=== PATIENT | female | born 1945 | race Caucasian/White ===

== ENCOUNTER → 2020-04-27 14:56 | Outpatient (BNVA) | payer MEDICARE, SELFPAY | PROVIDERS: Family Provider Nurse Practitioner Family; PCP Nurse Practitioner Family; Visit Provider Nurse Practitioner Family | DX: Z11.59 Encounter for screening for other viral diseases (principal) | CPT/HCPCS: 87635 ==

== ENCOUNTER 2020-07-08 11:34 | Outpatient (CLI) | payer MEDICARE, SELFPAY ==
--- NOTE | 2020-07-08 11:44 | MM_ITS ---
WS: [id number] Bilateral screening digital mammogram, 07/08/2020 Clinical Data: SCREENING Comparison: 08/19/2018, 10/24/2018, 10/10/2018, 09/03/2017, 06/28/2016, 07/16/2015, 06/04/2014, 05/13/2013, 04/09/2012, 12/14/2010, 05/05/2009, 04/08/2008, 04/04/2007, 04/06/2006. Findings: The breast parenchymal pattern shows fibroglandular tissue No spiculated masses or clustered calcific ations are seen. There are no secondary signs of carcinoma. There are small benign calcifications in each breast. MM/[id number] Impression: 1. Negative bilateral mammogram unchanged. 2. Recommend annual screening mammograms. BIRADS: 1-Negative FOLLOW UP: 1 Year Follow-up The CAD film tests checker was used.
== END 2020-07-08 11:35 | disposition home or self-care (01) ==
LOC: RADSHAW 11:39
PROVIDERS: Family Provider Nurse Practitioner Family; PCP Nurse Practitioner Family; Visit Provider Nurse Practitioner Family
DX: Z12.31 Encounter for screening mammogram for malignant neoplasm of breast (principal)
CPT/HCPCS: 77067

== ENCOUNTER 2020-08-26 10:48 | Inpatient (IN) | payer MEDICARE, SELFPAY ==
[2020-08-26] VITALS (31 sets, daily range): BP systolic 82–199; BP diastolic 44–121; PULSE 41–105; RESP 12–25; TEMP 36.5; O2SAT 87–100; BMI 30.9
--- NOTE | 2020-08-26 11:12 | ECG_ITS ---
[facility] Test Date: 2020-08-26 Pat Name: Neisha Stratton Department: Room: 112 Gender: Female Heel Cover Softener: : 1945 Requested By: Toni De La Cruz I Order Number: [id number] Janie MD: Edson Carrillo M.D. Measurements Intervals [place] Rate: 41 P: UT: QRS: 38 QRSD: 106 T: 55 QT: 460 QTc: 384 Interpretive Statements ATRIAL FIBRILLATION WITH SLOW VENTRICULAR RESPONSE LOW QRS VOLTAGE IN PRECORDIAL LEADS [QRS DEFLECTION < 1.0 mV IN CHEST LEADS] ABNORMAL RHYTHM ECG No previous ECG available for comparison Electronically Signed On 08-26-2020 20:06:52 DIRECTOR ASSET by Edson Carrillo M.D. [id number] f
--- NOTE | 2020-08-26 11:12 | XR_ITS ---
WS: [id number] Exam: XR chest 1V portable [id number] Date/Time of Exam: 08/26/2020 11:12 AM Reason For Exam: syncope No priors. Findings: The lungs are clear and fully expanded. Costophrenic angles are sharp. No infiltrates. Bronchovascula r relief appears normal. Cardiac silhouette is unremarkable. Bony elements are intact. XR/XR chest 1V portable [id number] IMPRESSION: Unremarkable chest radiograph.
--- NOTE | 2020-08-26 11:33 | ED_ITS ---
HPI - Weakness General: Chief complaint: Weakness Stated complaint: SYNCOPE/ DIZZY/ WEAK Time Seen by Provider: 08/26/20 11:00 Source: patient Mode of arrival: EMS Limitations: no limitations History of Present Illness: HPI Narrative: The patient is a 75-year-old female with no prior cardiac history who presents to the emergency department with a presyncopal episode. She says her symptoms started yesterday with extreme dizziness and episodes of presyncope but it eventually settled down. She states that today symptoms recurred again and after taking a couple of steps she felt she was going to have a syncopal episode so she sat down and called for an ambulance. She denies any chest pain, shortness of breath. She only feels a little dizzy right now. Onset (ago): day(s) (1) Duration: intermittent and progressively worsening Associated symptoms: Denies chills, dysuria, fever(s), headache(s), nausea or vomiting Review of Systems General: Reports: 10 or more systems reviewed and unremarkable except in HPI and below Const: Denies: fever(s), chills or body aches Eyes: Denies: change in vision or blurry vision ENMT: Denies: throat pain, enlarged tonsils, odynophagia, hoarseness, mouth pain or swelling of lips/tongue Card: Denies: palpitations, irregular heart rhythm, edema or swelling of feet/ankles Resp: Denies: dyspnea, productive cough or non-productive cough GI: Denies: abdominal pain, nausea or vomiting : Denies: flank pain, difficulty voiding, dysuria, urinary frequency, urinary urgency or urinary hesitancy Musc: Denies: neck pain, back pain or extremity swelling Skin/Breast: Denies: rash, pruritus or erythema Neuro: Reports: dizziness; Denies: headache(s), numbness in extremities or weakness in extremities Endo: Denies: polyuria, polydipsia or tired all the time Physical Exam Const: COMMON NORMALS: no acute distress, average body habitus, patient oriented x3, no limitations, healthy appearing, alert and well nourished HENMT: COMMON NORMALS: normocephalic, atraumatic and moist oral mucous membranes HEAD & SCALP: normocephalic and atraumatic Neck/C-Spine: COMMON NORMALS: no meningeal signs and no JVD Chest: COMMONS NORMALS: normal inspection of the chest and normal palpation of entire chest wall Resp: COMMON NORMALS: normal respiratory effort, No retractions, No use of accessory muscles, clear to auscultation bilaterally and percussion normal AUSCULTATION: clear to auscultation bilaterally PERCUSSION: percussion normal Cardio: COMMON NORMALS: no JVD, S1 normal heart sound present, S2 normal heart sound present, No gallops present (Cardio), No clicks present (Cardio), No murmurs present (Cardio), No rub (Cardio) and Peripheral pulses 2+ throughout RATE: bradycardic RHYTHM: abnormal rhythm regularly irregular HEART SOUNDS: S1 normal heart sound present and S2 normal heart sound present PERIPHERAL PULSES: Peripheral pulses 2+ throughout GI: COMMON NORMALS: Normal to inspection, nondistended, normoactive bowel sounds present, Soft to palpation, non-tender, No hepatosplenomegaly present, no masses and no bruits PALPATION: Yes Soft to palpation and Yes No hepatosplenomegaly present Extremity: COMMON NORMALS: normal to inspection, full ROM, capillary refill normal, no calf tenderness and no pedal edema Neuro: COMMON NORMALS: patient oriented x3 SENSORIUM/ORIENTATION: Yes alert MENINGEAL SIGNS: Yes no meningeal signs Skin: COMMON NORMALS: no rashes or lesions noted, no wounds, turgor normal, no jaundice, no petechiae and no mottling GENERAL SKIN EXAM: no rashes or lesions noted and turgor normal Course Reevaluation(s): Reevaluation #1: Discussed her EKG findings, her auditor internal findings, and my conversation with the nut tapper. Explained that she will need a pacemaker because her heart rate is very low. This is likely responsible for her presyncopal episodes. She voiced understanding and is in agreement with the plan. Time: 11:35 Consultations: Consultation #1: Discussed the patient with Dr. Mcdaniel, nut tapper and he will take her to the [employer] [facility] [employer] [facility] for a temporary pacemaker. Time: 11:30 Vital Signs: Vital signs: Vital Signs Temperature 97.7 F 08/26/20 11:06 Pulse Rate 80 08/26/20 17:24 Respiratory Rate 16 08/26/20 13:45 Blood Pressure 95/57 08/26/20 13:45 Pulse Oximetry 94 08/26/20 17:24 MDM - Weakness MDM Narrative: Medical decision making narrative: 75-year-old female patient who presented to the emergency department with a presyncopal episode. Evaluation in the emergency department shows she is in heart block and requires a pacemaker. She was taken emergently to the [facility] for a temporary pacemaker placement. Medical Records: Attestation: I reviewed the patient's medical records. Lab Data: Attestation: I reviewed the patient's lab results. Labs: Lab Results 08/26/20 08/26/20 08/26/20 Range/Units 11:40 11:40 11:40 WBC 8.6 (4.0-10.0) 10^3/ uL RBC 3.77 L (4.1-5.3) 10^6/u L Hgb 11.7 (11.5-15.3) g/dL Hct 37.0 (37.0-47.0) % MCV 98.1 (81-99) fL MCH 31.0 (28.0-34.0) pg MCHC 31.6 (30.0-36.0) g/dL RDW 13.0 (12.1-15.1) % Plt Count 194 (130-400) 10^3/c mm MPV 11.5 H (7.4-10.4) fL Neut % (Auto) 81.0 % Lymph % (Auto) 14.3 % [place] % (Auto) 3.8 % Eos % (Auto) 0.2 % Baso % (Auto) 0.2 % Neut # (Auto) 6.98 (1.8-7.7) 10^3/u L Lymph # (Auto) 1.2 (0.8-4.8) 10^3/u L [place] # (Auto) 0.3 (0.2-0.9) 10^3/u L Eos # (Auto) 0.0 (0.0-0.8) 10^3/u L Baso # (Auto) 0.0 (0.0-0.1) 10^3/u L Nucleated RBC % (a uto) 0 % Nucleated RBCs # 0.0 /100WBC PT 14.40 (12.1-14.9) SECO NDS INR 1.08 (0.8-1.2) Sodium 126 L (136-145) mmol/L Potassium 7.4 H* (3.5-5.1) mmol/L Chloride 96 L (98-107) mmol/L Carbon Dioxide 20 L (22-29) mmol/L Anion Gap 17.4 (5-19) BUN 46 H (8-23) mg/dL Creatinine 2.6 H (0.5-0.9) mg/dL GFR Calculation Not Reportable Glucose 312 H (65-115) mg/dL Calculated Osmolal ity 286 (285-295) mOsm/k g Calcium 8.5 (8.5-10.5) mg/dL Total Bilirubin 0.3 (0.15-1.2) mg/dL AST 14 (0-32) U/L ALT 13 (0-33) U/L Alkaline Phosphata se 35 (35-105) IU/L Troponin T Baselin e (0-10) ng/L NT-Pro-B Natriuret Pep 3054 H (0-450) pg/mL Total Protein 6.4 L (6.6-8.7) g/dL Albumin 4.2 (3.5-5.2) g/dL Globulin 2.2 (1.3-4.6) g/dL TSH 2.21 (0.27-4.20) uIU/ mL 08/26/20 Range/Units 11:40 WBC (4.0-10.0) 10^3/ uL RBC (4.1-5.3) 10^6/u L Hgb (11.5-15.3) g/dL Hct (37.0-47.0) % MCV (81-99) fL MCH (28.0-34.0) pg MCHC (30.0-36.0) g/dL RDW (12.1-15.1) % Plt Count (130-400) 10^3/c mm MPV (7.4-10.4) fL Neut % (Auto) % Lymph % (Auto) % [place] % (Auto) % Eos % (Auto) % Baso % (Auto) % Neut # (Auto) (1.8-7.7) 10^3/u L Lymph # (Auto) (0.8-4.8) 10^3/u L [place] # (Auto) (0.2-0.9) 10^3/u L Eos # (Auto) (0.0-0.8) 10^3/u L Baso # (Auto) (0.0-0.1) 10^3/u L Nucleated RBC % (a uto) % Nucleated RBCs # /100WBC PT (12.1-14.9) SECO NDS INR (0.8-1.2) Sodium (136-145) mmol/L Potassium (3.5-5.1) mmol/L Chloride (98-107) mmol/L Carbon Dioxide (22-29) mmol/L Anion Gap (5-19) BUN (8-23) mg/dL Creatinine (0.5-0.9) mg/dL GFR Calculation Glucose (65-115) mg/dL Calculated Osmolal ity (285-295) mOsm/k g Calcium (8.5-10.5) mg/dL Total Bilirubin (0.15-1.2) mg/dL AST (0-32) U/L ALT (0-33) U/L Alkaline Phosphata se (35-105) IU/L Troponin T Baselin e 23 H (0-10) ng/L NT-Pro-B Natriuret Pep (0-450) pg/mL Total Protein (6.6-8.7) g/dL Albumin (3.5-5.2) g/dL Globulin (1.3-4.6) g/dL TSH (0.27-4.20) uIU/ mL Imaging Data^: CXR: Attestation: I personally reviewed and interpreted this imaging study as follows: Radiologist's impression: [address] [address] XRay Report Signed Patient: Neisha Stratton #: [id number] : 5Acct#:[id number] Age/Sex: 75 / FADM Date: 08/26/20 Loc: CCLRoom/Bed: Attending Dr: Viraj Mcdaniel MD Ordering Provider/Ordering MD: Toni De La Cruz [place], [facility] [place] of Service: 08/26/20 Procedure(s): XR chest 1V portable [id number] Accession Number(s): [id number] Report Number: [id number] WS: [id number] Exam: XR chest 1V portable [id number] Date/Time of Exam: 08/26/2020 11:12 AM Reason For Exam: syncope No priors. Findings: The lungs are clear and fully expanded. Costophrenic angles are sharp. No infiltrates. Bronchovascular relief appears normal. Cardiac silhouette is unremarkable. Bony elements are intact. XR/XR chest 1V portable [id number] IMPRESSION: Unremarkable chest radiograph. Dictated By:Gerardo Ackerman DO Signed By:Lorenzo Yun Date/Time:08/26/20 1145 DD/ 1144 EKG Data^: EKG 1: Attestation: I personally reviewed and interpreted this EKG as follows: EKG interpretation date: 08/26/20 EKG interpretation time: 10:56 Prior EKG tracings: not available for review Interpretation: Atrial fibrillation with slow ventricular response. Heart rate 40 bpm. Complete heart block Discharge Plan Discharge Patient Disposition: Admitted As Inpatient Admit Provider: Viraj Mcdaniel Clinical Impression: Heart block AV complete Condition: Stable Coding Level of Care Code ED Senior Housekeeper for Chg Fwd Exam Comprehensive
--- NOTE | 2020-08-26 11:44 | PM.HP ---
Providers/Chief Complaint Primary Care Provider: Mary Lou Hayes APN Chief Complaint: SYNCOPE/ DIZZY/ WEAK History of Present Illness Neisha Stratton is a 75 year old female brought in ER after having syncope. Patient is not a good historian but according to her she has history of hypertension hyperlipidemia has never had any heart problem nor she is aware of diagnosis of atrial fibrillation. According to her for the last few days she has been progressively getting weak short of breath and dizzy. In the last 2 days she has past couple of time today when she had syncope 911 was called. She was noted to have slow heart rate into 30s EKG strips were consistent with slow ventricular response and atrial fibrillation as underlying rhythm. Most likely she has complete heart block. Currently she is hypotensive and bradycardic. ER called me I examined the patient and ordered IV fluid with dopamine drip. I will take her immediately for temporary pacemaker. We will observe her next 24 hours will rule out reversible causes for heart block, patient denies being on blood thinner, she does not know her medicines. She has been explained all risk benefit and alternative for the procedure. She would like to proceed with temporary and permanent pacemaker. Review of Systems General: Reports: 10 or more systems reviewed and unremarkable except in HPI and below and ROS unobtainable due to medical condition Const: Denies: fever(s), chills or body aches Eyes: Denies: change in vision or blurry vision ENMT: Denies: throat pain, enlarged tonsils, odynophagia, hoarseness, mouth pain or swelling of lips/tongue Card: Denies: palpitations, irregular heart rhythm, edema or swelling of feet/ankles Resp: Denies: dyspnea, productive cough or non-productive cough GI: Denies: abdominal pain, nausea or vomiting : Denies: flank pain, difficulty voiding, dysuria, urinary frequency, urinary urgency or urinary hesitancy Musc: Denies: neck pain, back pain or extremity swelling Skin/Breast: Denies: rash, pruritus or erythema Neuro: Reports: dizziness; Denies: headache(s), numbness in extremities or weakness in extremities Endo: Denies: polyuria, polydipsia or tired all the time Medications/Allergies Allergies Allergy/AdvReac Type Severity Reaction Status Date / Time naproxen [From Aleve] Allergy Unknown Verified 08/26/20 11:15 Vitals/I&O/Wt Last Vital Signs Temp 97.7 F 08/26/20 11:06 Pulse 41 L 08/26/20 11:06 Resp 22 H 08/26/20 11:06 BP 84/45 08/26/20 11:06 Pulse Ox 100 08/26/20 11:06 Weight last 48 hrs Weight 180 lb Physical Exam Narrative: EXAM NARRATIVE: GENERAL: Patient is alert, awake and oriented x3. Appears to be lethargic NECK: No jugular vein distension. HEENT: No cyanosis. No icterus. No pallor. HEART: Irregularly irregular slow rhythm S1 and S2. No murmur, rub or gallop. LUNGS: Clear to auscultate bilaterally. ABDOMEN: Soft, nontender and nondistended. Positive bowel sounds. No guarding, rebound or tenderness. CENTRAL NERVOUS SYSTEM: Grossly nonfocal. EXTREMITIES: Lower extremities without edema bilaterally. Data : 08/26/20 11:40 08/26/20 16:12 A&P Assessment and plan (1) Heart block AV complete: Patient appeared to be in complete heart block with hypotension. We will start her on IV fluid and dopamine drip, we will proceed with temporary pacemaker and later permanent, will rule her out with reversible causes such as electrolyte imbalance medicine overdose and ischemia. Status: Acute (2) Shock: Most likely due to severe bradycardia complete heart block, IV fluid with dopamine advised. Proceed with temporary pacemaker. For the plan will be advised as per progress of the patient Status: Acute (3) Atrial fibrillation: Underlying rhythm is atrial fibrillation we will further check her previous record as it is not available to me at this point. She may will be needing anticoagulation later. Status: Acute Qualifiers: Atrial fibrillation type: persistent (not longstanding) Qualified Code(s): I48.19 - Other persistent atrial fibrillation (4) Hyperlipidemia LDL goal <100: Continue current regimen. Status: Acute Attestations Medical Necessity Statement*: I am expecting her stay to cross more than 2 midnights Coding Level of Care Code New Pt Acute [employer] Industrial [employer] Consultant for Chg Fwd Patient Type New Medical Decision Making Moderate Complexity Diagnoses Heart block AV complete I44.2 Shock R57.9 Atrial fibrillation I48.19 Atrial fibrillation type: persistent (not longstanding) Hyperlipidemia LDL goal <100 E78.5
[2020-08-26] MEDS: sodium chloride 0.9% 1,000 ML 999 ML IV (11:46)
--- NOTE | 2020-08-26 11:46 | XACV_ITS ---
Ht: 163 cm Wt: 91 kg BSA: 2.06 m2 Gender: Female : 1945 Any Known Allergies: Other Exam Priority: Routine Procedure(s): Procedure Description: Diagnostic procedure Procedure Description: Miscellaneous Procedure Description: Temporary Pacemaker Insertion Diagnostic Cath Status: Elective PCI Status: Elective Conclusions 1. Indication for temporary pacemaker: Third-degree heart block with symptomatic bradycardia 2. . 3. After carefully explaining risk benefit and alternative for the procedure informed consent was obtained from the patient by myself. Patient was taken to the Machine Tack Puller right groin was prepped through right common femoral approach temporary pacemaker was placed in the right ventricle. Excellent capture was observed and noted. Patient was later transferred to ICU in a stable condition. 4. . Recommendations * Usual post-cath care, usual post pacemaker placement care. Pressures Phase:Rest AO : / ( ) @ 6:03:00 AM / ( ) @ 6:13:00 AM Clinical Evaluation EBL: 5mL-10mL Procedural Details Procedure Consent Obtained. Pre-Procedure Time Out. Identified patient by full name and date of as verbalized by the patient/guarantor. Does the consent match the physician's order: Yes. Accurate & Complete Informed Consent: Yes. Inpatient/Outpatient History & Physical on Chart: Yes. If H&P is completed, is and addenduem needed: No; If yes, is the addendum complete: N/A. Visualize and Verify Site with Patient/Guarantor: N/A. Relevant Radiology Images available: Yes. Pre-op teaching completed and patient verbalized understanding. The risks, benefits, and alternatives of sedation and/or procedure were discussed by physician. The patient agrees to continue. Procedure started. Correct patient, site and procedure confirmed by cath team. Current diagnosis: Complete heart block. PERRLA. Strong, equal hand general manager food bilaterally. Lungs clear x 5 lobes. IV Site on Arrival: 22 gauge in the left wrist. IV Site on Arrival: 20 gauge in the right anticubital. IV Fluids: 0.9% NaCl at KVO. 0 mL infused prior to labor mediator. Pre Procedural Pulses: bilateral dorsalis pedis was 3+. Pre Procedural Pulses: bilateral posterior tibial was 3+. Pre Procedural Pulses: right radial was 3+. Oxygen started at 2liters/min via nasal canula. Physician notified. Physician arrived. Equipment: 5F - Femoral. Baseline sample Acquired. HR: 36 BPM. Cardiac Cath Pack. Kit, Micropuncture. ACIST Manifold Kit Model BT 2000. Physician scrubbed in. Immediate Pre-Procedure Time Out. Correct Patient: Yes; Correct Procedure: Yes; Correct Site: Yes; Correct Patient Position: Yes; Correct Supplies: Yes; Dried Flammable Prep: Yes; Blood Products Available: No;. Lidocaine 1% infiltrated to the right groin. Venous access obtained with a micropuncture set. 6FR arrow sheath inserted. Temporary pacemaker inserted. Rate 80, output of 5, asynchronous. Vital chart was stopped. Sheath(s) sutured into position with 2-0 silk and sterile 4x4's and Op-site applied over the site. No oozing or signs and symptoms of hematoma noted. Post Procedure: Pulses reassessed and unchanged. PERRLA. Strong, equal hand general manager food bilaterally. No VTE prophylaxis required. Post-op diagnosis: Temporary pacemaker insertion. Complications: None. Estimated blood loss: 5mL-10mL. Procedure completed. Patient transferred by bed to CPRU. Procedure Medications Start: 12:06 PM Stop: 12:06 PM Medication: Versed Amount: 1 mg Route: I.V. Start: 12:06 PM Stop: 12:06 PM Medication: Fentanyl Amount: 25 mcg Route: I.V. I, the attending physician, have reviewed and verified all procedure medications. Yes, all medications given per verbal order History/Risk Factors Hypertension: No Dyslipidemia: Yes Peripheral Arterial Disease (PAD): No Myocardial Infarction (CO): No Obesity: Yes Renal Disease: No Prior Interventions PCI: No CABG: No Valve Surgery: No Report Signatures Finalized by Viraj Mcdaniel MD on 09/30/2020 09:56 PM
--- NOTE | 2020-08-26 11:52 | PC.NURSE ---
Pt taken to cath lab radiology technician by Chani Huang for temporary pacemaker. Pt may need to return to ED to recover until bed available.
[2020-08-26 11:55] LABS: Basophils % 0.2 %; Eosinophils % 0.2 %; Hemoglobin 11.7 g/dL (11.5-15.3); INR 1.08 (0.8-1.2); Lymphocytes # 1.2 10^3/uL (0.8-4.8); Lymphocytes % 14.3 %; Mean Corpuscular HGB Conc 31.6 g/dL (30.0-36.0); Mean Corpuscular Volume 98.1 fL (81-99); Mean Platelet Volume 11.5 fL (7.4-10.4); Monocytes # 0.3 10^3/uL (0.2-0.9); Monocytes % 3.8 %; Neutrophils # 6.98 10^3/uL (1.8-7.7); Nucleated Red Blood Cells % 0 %; Platelet Count 194 10^3/cmm (130-400); Red Blood Count 3.77 10^6/uL (4.1-5.3); White Blood Count 8.6 10^3/uL (4.0-10.0)
[2020-08-26 12:08] LABS: Troponin(5th) Baseline 23 ng/L (0-10)
[2020-08-26 12:18] LABS: Alanine Aminotransferase 13 U/L (0-33); Albumin Level 4.2 g/dL (3.5-5.2); Alkaline Phosphatase 35 IU/L (35-105); Aspartate Amino Transferase 14 U/L (0-32); Blood Urea Nitrogen 46 mg/dL (8-23); Calcium 8.5 mg/dL (8.5-10.5); Carbon Dioxide 20 mmol/L (22-29); Chloride 96 mmol/L (98-107); Globulin 2.2 g/dL (1.3-4.6); Glucose 312 mg/dL (65-115); NT Pro B Type Natriuretic Pept 3054 pg/mL (0-450); Osmolality Calculated 286 mOsm/kg (285-295); Sodium 126 mmol/L (136-145); Thyroid Stimulating Hormone 2.21 uIU/mL (0.27-4.20); Total Bilirubin 0.3 mg/dL (0.15-1.2); Total Protein 6.4 g/dL (6.6-8.7)
[2020-08-26 12:22] LABS: Anion Gap 17.4 (5-19); Potassium 7.4 mmol/L (3.5-5.1)
[2020-08-26] MEDS: insulin regular-human 10 UNIT in SYRINGE 1 EACH IVP ×2 (13:40→17:47)
--- NOTE | 2020-08-26 14:01 | PC.NURSE ---
received pt from worm farm laborer post temporary pacemaker placed via right groin. pt placed on vials monitor and will be monitored. asynchronous, 4 miliamps and 80 paced hr settings.
--- NOTE | 2020-08-26 15:05 | PC.NURSE ---
Patient received from quality assurance/r&d lab technician via stretcher accompanied by Johnnie RN. Patient AAOx4, right groin c/d/i, pacer wires intact, capture on monitor, VSS.
[2020-08-26 16:38] LABS: Troponin 5 2HR 18.81 ng/L (0-10)
[2020-08-26 16:41] LABS: Troponin 5 2HR Delta -4.19 ABS# (0-10)
[2020-08-26 16:57] LABS: Blood Urea Nitrogen 45 mg/dL (8-23); Calcium 8.9 mg/dL (8.5-10.5); Carbon Dioxide 15 mmol/L (22-29); Chloride 100 mmol/L (98-107); Glucose 197 mg/dL (65-115); Osmolality Calculated 281 mOsm/kg (285-295); Sodium 127 mmol/L (136-145)
[2020-08-26 17:09] LABS: Anion Gap 19.5 (5-19); Potassium 7.5 mmol/L (3.5-5.1)
--- NOTE | 2020-08-26 17:22 | XR_ITS ---
WS: [id number] Exam: XR chest 1V portable [id number] Date/Time of Exam: 08/26/2020 5:22 PM Reason For Exam: flash pulmonary edema Comparison 08/26/2020 at 1119 hours. The lungs are clear and fully expanded. Mild chronic interstitial changes. Normal cardiomediastinal s tructures and bony elements. No pleural effusions. Monitoring leads superimpose the chest. XR/XR chest 1V portable [id number] IMPRESSION: 1. No acute cardiopulmonary finding. No change.
[2020-08-26 17:32] LABS: Glucose Point of Care 235 mg/dL (70-110)
[2020-08-26] MEDS: FUROsemide 10 mg/mL SDV 4mL 40 MG IVP ×2 (17:36→17:44)
--- NOTE | 2020-08-26 18:07 | P.CONIM_ITS ---
Providers/Reason For Consult Consulting Physican/Specialty*: Internal Medicine Reason for Consult*: Medical management Attending Physician: Viraj Mcdaniel MD Primary Care Provider: Mary Lou Hayes APN History of Present Illness History of Present Illness Neisha Stratton is a 75 year old female with extreme dizziness and episodes of presyncope. I am unable to take history at this time because she has been placed on BiPAP urgently. History is taken from chart. Review of Systems General: Reports: ROS unobtainable due to medical condition Meds/Allergies Home Medications and Allergies Allergies Allergy/AdvReac Type Severity Reaction Status Date / Time naproxen [From Aleve] Allergy Unknown Verified 08/26/20 11:15 Current Medications Current Medications Generic Name Dose Route Start Last Admin Trade Name Freq PRN Reason Stop Dose Admin Albuterol Sulfate 2.5 mg 08/26/20 17:51 08/26/20 17:54 Albuterol 2.5 Mg/0.5 Ml Neb INHALATION 2.5 mg Q4H.RESPIRATORY SRAVANTHI Administration Dopamine HCl/Dextrose 400 mg in 250 mls @ 15.309 mls/hr 08/26/20 11:45 08/26/20 17:46 Intropin Drip IV Not Given CONT SRAVANTHI Protocol 5 MCG/KG/MIN Insulin Human Regular 10 unit/ 250.1 mls @ 500.2 mls/hr 08/26/20 17:30 08/26/20 17:49 Dextrose IV 08/27/20 17:59 500.2 mls/hr Q30MIN SRAVANTHI Administration Sodium Chloride 1,000 mls @ 100 mls/hr 08/26/20 12:30 08/26/20 15:31 Sodium Chloride 0.9% IV Not Given .Q10H SRAVANTHI PFSH Acute Female Reproductive History: Date of last menstrual period: 08/02/95 Vitals/I&O/Wt Last Vital Signs Temp 97.7 F 08/26/20 11:06 Pulse 84 08/26/20 18:05 Resp 18 08/26/20 17:58 BP 95/57 08/26/20 13:45 Pulse Ox 94 08/26/20 17:58 08/26/20 08/26/20 08/26/20 06:59 14:59 22:59 Intake Total 120 / 120 Output Total 1000 / 1000 Balance -880 / -880 Weight last 48 hrs Weight 81.647 kg Physical Exam Narrative: EXAM NARRATIVE: Patient is seen now in the ICU. She has been placed on BiPAP. She is lethargic difficult to arouse. She is unable to speak with me. Head:normocephalic atraumatic Eyes: Pupils equal round and reactive to light and accommodation extraocular muscles appear intact ENT BiPAP in place chest is symmetric respirations Lungs : Inspiratory rhonchi and expiratory wheezes with increased respiratory rate Heart: Regular rate and rhythm. Telemetry strip shows paced rhythm at 80. No murmur auscultated GI: Central obesity using accessory muscles to breathe including abdominal muscles. Soft nontender nondistended normal active bowel sounds external exam is normal. Christy catheter in place draining 1 L of pale yellow urine upon placement. Extremities: No clubbing cyanosis or edema good peripheral pulses. Neuro: Lethargic due to acute respiratory failure. She started to open eyes and of exam. 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 scheduled for kayexalate when can take po. May need pr Status: Acute (3) Acute respiratory failure with hypoxemia: placed emergently on BIPAP 18/10. Given lasix per cardiology times one dose. Status: Acute (4) Atrial fibrillation: per cardiology Status: Acute Qualifiers: Atrial fibrillation type: persistent (not longstanding) Qualified Code(s): I48.19 - Other persistent atrial fibrillation (5) Hyponatremia: likely related to medications Status: Acute Consult Attestations Medical Necessity Statement: Pt with life threatening complete heart block followed by acute respiratory failure on BIPAP and with temporary pacemaker. Coding Level of Care Code Acute Community Relations Advisor for [facility] Diagnoses Heart block AV complete I44.2 Hyperkalemia E87.5 Acute respiratory failure with hypoxemia J96.01 Atrial fibrillation I48.19 Atrial fibrillation type: persistent (not longstanding) Hyponatremia E87.1
[2020-08-26 18:33] LABS: Glucose Point of Care 249 mg/dL (70-110)
[2020-08-26] MEDS: heparin 5,000 unit/mL INJ 1 mL 5000 UNIT SUBCUT (19:02)
[2020-08-26] MEDS: sodium bicarbonate 8.4% 1 mEq/mL 50mL Syr 50 MEQ IVP (19:02)
--- NOTE | 2020-08-26 19:48 | PC.NURSE ---
AO x4, denies SOB and pain, lungs clear, regular unlabored RR, tolerating Bipap, supine 30 degrees, call light within reach
[2020-08-26 20:11] LABS: Blood Urea Nitrogen 44 mg/dL (8-23); Calcium 8.6 mg/dL (8.5-10.5); Carbon Dioxide 24 mmol/L (22-29); Chloride 96 mmol/L (98-107); Glucose 208 mg/dL (65-115); Osmolality Calculated 285 mOsm/kg (285-295); Sodium 129 mmol/L (136-145)
[2020-08-26 20:13] LABS: Troponin 5 6HR 31.44 ng/L (0-10)
[2020-08-26 20:15] LABS: Anion Gap 15.8 (5-19)
[2020-08-26 20:17] LABS: Potassium 6.8 mmol/L (3.5-5.1)
[2020-08-26] MEDS: sodium polystyrene sulfonate 15 gm/60 mL Btl 30 GM PR (20:41)
[2020-08-27] VITALS (33 sets, daily range): BP systolic 87–167; BP diastolic 47–85; PULSE 60–98; RESP 12–24; TEMP 36.6; O2SAT 90–100
[2020-08-27 00:58] LABS: Anion Gap 15.9 (5-19); Blood Urea Nitrogen 44 mg/dL (8-23); Carbon Dioxide 25 mmol/L (22-29); Chloride 99 mmol/L (98-107); Glucose 154 mg/dL (65-115); Osmolality Calculated 294 mOsm/kg (285-295); Potassium 4.9 mmol/L (3.5-5.1); Sodium 135 mmol/L (136-145)
--- NOTE | 2020-08-27 01:39 | PC.NURSE ---
Dr. Batista contacted regarding NS 100 ml/hr fluid oder on aug after patient went into pulmonary edema on previous shift, T.O. given to hold fluid order
[2020-08-27] MEDS: heparin 5,000 unit/mL INJ 1 mL 5000 UNIT SUBCUT ×3 (03:24→19:33)
[2020-08-27 04:39] LABS: Hematocrit 36.4 % (37.0-47.0); Mean Corpuscular Hemoglobin 30.3 pg (28.0-34.0); Mean Corpuscular Volume 91.9 fL (81-99); Nucleated Red Blood Cells % 0 %; Red Blood Count 3.96 10^6/uL (4.1-5.3); Red Cell Distribution Width 12.7 % (12.1-15.1)
[2020-08-27 05:02] LABS: Anion Gap 17.4 (5-19); Blood Urea Nitrogen 45 mg/dL (8-23); Calcium 8.9 mg/dL (8.5-10.5); Carbon Dioxide 25 mmol/L (22-29); Chloride 100 mmol/L (98-107); Glucose 107 mg/dL (65-115); Osmolality Calculated 298 mOsm/kg (285-295); Potassium 4.4 mmol/L (3.5-5.1); Sodium 138 mmol/L (136-145)
[2020-08-27 05:08] LABS: Eosinophils # 0.1 10^3/uL (0.0-0.8); Eosinophils % 0.9 %; Lymphocytes # 1.7 10^3/uL (0.8-4.8); Lymphocytes % 29.6 %; Mean Platelet Volume 11.6 fL (7.4-10.4); Monocytes # 0.4 10^3/uL (0.2-0.9); Monocytes % 6.8 %; Neutrophils # 3.66 10^3/uL (1.8-7.7); Neutrophils % 62.4 %; Platelet Count 190 10^3/cmm (130-400); White Blood Count 5.9 10^3/uL (4.0-10.0)
--- NOTE | 2020-08-27 05:58 | PC.NURSE ---
uneventful night, continues to tolerate Bipap, Pace maker capturing, site clean dry and intact
--- NOTE | 2020-08-27 07:00 | USCV_ITS ---
Neisha Stratton Age: 75 Gender: F : 1945 Exam Date: 08/27/2020 07:36 Ordering Phys: Viraj Mcdaniel MD ([email or web address]) Technologist: Augustina Mae Exam Location: [facility] [place] Indication: NSTEMI BP: 113 / 54 HR: 92 Rhythm: Sinus Technical Quality: Adequate MEASUREMENTS (Male / Female) Normal Values 2D ECHO LV Diastolic Diameter PLAX 3.1 cm 4.2 - 5.9 / 3.9 - 5.3 cm LV Systolic Diameter PLAX 1.8 cm LV Chamber Size 2.4 cm IVS Diastolic Thickness 1.5 cm 0.6 - 1.0 / 0.6 - 0.9 cm IVS Systolic Thickness 1.6 cm LVPW Diastolic Thickness 1.8 cm 0.6 - 1.0 / 0.6 - 0.9 cm LVPW Systolic Thickness 2.1 cm RV Chamber Size 2.8 cm LVOT Diameter 2.0 cm LV Ejection Fraction 2D Teich 73.8 % LV Ejection Fraction MOD 2C 73.6 % LV Ejection Fraction 2C AL 76.7 % LA Diameter 2.8 cm LA Width 2.4 cm LA Height 3.9 cm RA Width 2.1 cm RA Height 2.8 cm M-MODE LV Diastolic Diameter MM 4.1 cm 4.2 - 5.9 / 3.9 - 5.3 cm LV Systolic Diameter MM 2.9 cm LV Ejection Fraction MM Teich 58.1 % IVS Diastolic Thickness MM 1.3 cm 0.6 - 1.0 / 0.6 - 0.9 cm IVS Systolic Thickness MM 1.7 cm LVPW Diastolic Thickness MM 1.0 cm 0.6 - 1.0 / 0.6 - 0.9 cm LVPW Systolic Thickness MM 1.3 cm Aortic Annulus Diameter 2.3 cm LA Ao Ratio MM 1.3 MV E Point Septal Separation 0.4 cm DOPPLER AV Peak Velocity 151.0 cm/s LVOT Peak Velocity 102.0 cm/s AV Area Cont Eq vti 2.0 cm squared AV Area Cont Eq pk 2.1 cm squared MV Area PHT 3.4 cm squared Mitral E to A Ratio 2.7 MV E' Velocity 49.5 cm/s Mitral E to MV E' Ratio 7.2 Mitral E to LV E' Lateral Ratio 5.7 Mitral E to LV E' Septal Ratio 10.0 TR Peak Velocity 186.8 cm/s TR Peak Gradient 14.0 mmHg TV Peak E Velocity 53.0 cm/s Right Atrial Pressure 3.0 mmHg Pulmonary Artery Systolic Pressu 17.0 mmHg PV Peak Velocity 98.0 cm/s RV Acceleration Time 0.1 s RV Ejection Time 0.3 s RV AcT/ET 0.4 FINDINGS Left Ventricle Normal left ventricular cavity size. Normal left ventricular systolic function. Left ventricular ejection fraction is estimated at 58 %. Grade III/IV diastolic dysfunction (restrictive filling pattern), severely elevated filling pressures. Right Ventricle Normal right ventricular size. Catheter/pacemaker wire visualized in the right ventricle. Right Atrium Normal right atrial size. Catheter/pacemaker wire in the right atrial cavity. Left Atrium The left atrium is normal in size. Mitral Valve Structurally normal mitral valve without significant stenosis or prolapse. There is no mitral regurgitation. Aortic Valve Structurally normal aortic valve without significant sclerosis or stenosis. There is no aortic regurgitation. Tricuspid Valve Structurally normal tricuspid valve without significant stenosis or regurgitation. Pulmonary artery systolic pressure is normal. Pulmonic Valve Structurally normal pulmonic valve without significant stenosis. There is no pulmonic regurgitation. Pericardium Normal pericardium without effusion. Aorta Normal ascending aorta dimension. CONCLUSIONS 1-Normal left ventricular cavity size. Normal left ventricular systolic function. Left ventricular ejection fraction is estimated at 58 %. Grade III/IV diastolic dysfunction (restrictive filling pattern), severely elevated filling pressures. 2-Normal right ventricular size. Catheter/pacemaker wire visualized in the right ventricle. 3-Normal right atrial size. Catheter/pacemaker wire in the right atrial cavity. 4-No significant valve abnormalities. 5-There is no pericardial effusion. 6-Right atrial pressure is around 5 mm of mercury. 7-There are no prior echocardiogram studies to compare. Viraj Mcdaniel MD (Electronically Signed) Final Date: 28 August 2020 15:40 S
--- NOTE | 2020-08-27 10:14 | PC.CHAP ---
Pastoral Care Encounter/Spiritual Assessment Type of Contact [] Declined drafter castings visit [] Patient/Family/Request visit [] Outpatient visit [] Follow-up visit [] Physician referral [] Code/Alert [x] Routine visit [] Staff referral [] Actively dying [] Patient sleeping [] Family support [] [] Out of room [] Palliative care [] [] Receiving care in room [] Pre-surgical visit [] Trauma [] Long length of stay [x] ICU visit [] Other: Relational/Emotional Strength [] Patient feels connected with others/family/visitors/staff [] Distress [] Loneliness/isolation [] Abandonment Spirituality of Patient [x] Person of Alison [] Attends Orthodoxy of their Alison [] Believes in Prayer [] Reads Bible or Faith materials [] There are Spiritual issues to be addressed Instructional Systems Specialist Interventions [x] Prayer [x] Active listening [x] Non-anxious presence [x] Spiritual/emotional support [] Crisis/trauma care [] Spiritual counseling [] Bereavement support [] Provided bereavement packet [] Provided Bible/devotional materials [] Provided toy/stuffed animal, coloring book to patient or family member [] Provided Communion [] Anointing/[place] [] Salvation [x Completed spiritual assessment [] Other: Impact on Illness or Injury [] Angry [] Fearful [] Anxious [] Often cries [] Exhaustion [] Unable to work [] Unable to attend jehovah's witness [] Unable to walk/stand [] Unable to read [] Unable to drive [] Unable to eat/drink [] Unable to sleep [] Unable to be with family [] Patient intubated [] Other: Summary patient setting up enjoyed breakfast.. feeling stronger Time spent with patient 10 min
--- NOTE | 2020-08-27 10:33 | P.PN_ITS ---
Subjective Subjective: Interval history: Patient was doing well, c/o right knee pain, no fever, or chills, no chest pain or dyspnea Medications: Reviewed: Yes Vitals/I&O/Wt Last Vital Signs Temp 98 F 08/27/20 20:00 Pulse 73 08/27/20 20:00 Resp 19 H 08/27/20 20:00 BP 143/70 08/27/20 20:00 Pulse Ox 97 08/27/20 20:00 08/27/20 08/27/20 08/27/20 06:59 14:59 22:59 Intake Total 360 / 360 120 / 480 Output Total 3000 / 4900 1600 / 1600 Balance -3000 / -4779.9 360 / 360 -1480 / -1120 Weight last 48 hrs Weight 81.647 kg Physical Exam Narrative: EXAM NARRATIVE: Alert awake no distress on o2 via NC Eyes: Pupils equal round and reactive to light and accommodation extraocular muscles appear intact ENT : Grossly unremarkabl e Heart: Regular rate and rhythm. Telemetry strip shows paced rhythm at 80. No murmur auscultated GI: soft NT.N Extremities: No clubbing cyanosis or edema good peripheral pulses. 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 pacemaker HR normal Maintain electrolytes Status: Acute (2) Hyperkalemia: Improved, K normal Repeat BPM in am Status: Acute (3) Acute respiratory failure with hypoxemia: On o2 via NC wean as tolerated . Status: Acute (4) Atrial fibrillation: per cardiology Status: Acute Qualifiers: Atrial fibrillation type: persistent (not longstanding) Qualified Code(s): I48.19 - Other persistent atrial fibrillation (5) Hyponatremia: likely related to medications Status: Acute Attestations Medical Necessity Statement*: Anshul require furhter hospitalization for m anagement of heart block with temp pacemaker Time Spent in Patient Care: Greater than 35 minutes Coding Level of Care Code Acute Special Services Agent for [facility] Diagnoses Heart block AV complete I44.2 Hyperkalemia E87.5 Acute respiratory failure with hypoxemia J96.01 Atrial fibrillation I48.19 Atrial fibrillation type: persistent (not longstanding) Hyponatremia E87.1
[2020-08-27 12:17] LABS: Glucose Point of Care 210 mg/dL (70-110)
--- NOTE | 2020-08-27 16:42 | ECG_ITS ---
[facility] Test Date: 2020-08-27 Pat Name: Neisha Stratton Department: Room: ICU06 Gender: Female [employer]: : 1945 Requested By: Viraj Mcdaniel Order Number: [id number] Janie MD: Jacob Del Toro M.D. Measurements Intervals [place] Rate: 63 P: 38 OK: 153 QRS: 38 QRSD: 82 T: 267 QT: 408 QTc: 421 Interpretive Statements SINUS RHYTHM WITH INTERMITTENT PACED BEATS POSSIBLE LEFT ATRIAL ENLARGEMENT [-0.1mV P WAVE IN V1/V2] ST DEVIATION AND MODERATE T-WAVE ABNORMALITY, CONSIDER ANTEROLATERAL ISCHEMIA [-0.1+ mV T WAVE IN V3-V6] ST DEVIATION AND MODERATE T-WAVE ABNORMALITY, CONSIDER INFERIOR ISCHEMIA [-0.1+ mV T WAVE IN II/aVF] Compared to ECG 08/26/2020 10:56:15 Ventricular premature complex(es) now present T-wave abnormality now present Possible ischemia now present Atrial fibrillation no longer present Electronically Signed On 08-30-2020 19:11:14 INTERNET RETAILER by Jacob Del Toro M.D. [id number]
[2020-08-27 17:16] LABS: Glucose Point of Care 180 mg/dL (70-110)
--- NOTE | 2020-08-27 22:02 | PM.PN ---
Subjective Subjective: Interval history: Patient has underlying [place] rhythm, creatinine has improved potassium is also improved. Shortness of breath is better Medications: Reviewed: Yes Vitals/I&O/Wt Last Vital Signs Temp 98 F 08/27/20 20:00 Pulse 73 08/27/20 20:00 Resp 19 H 08/27/20 20:00 BP 143/70 08/27/20 20:00 Pulse Ox 97 08/27/20 20:00 08/27/20 08/27/20 08/27/20 06:59 14:59 22:59 Intake Total 360 / 360 120 / 480 Output Total 3000 / 4900 1600 / 1600 Balance -3000 / -4779.9 360 / 360 -1480 / -1120 Weight last 48 hrs Weight 180 lb Physical Exam Narrative: EXAM NARRATIVE: GENERAL: Patient is alert, awake and oriented x3. NECK: No jugular vein distension. HEENT: No cyanosis. No icterus. No pallor. HEART: Regular rhythm S1 and S2. No murmur, rub or gallop. LUNGS: Clear to auscultate bilaterally. ABDOMEN: Soft, nontender and nondistended. Positive bowel sounds. No guarding, rebound or tenderness. CENTRAL NERVOUS SYSTEM: Grossly nonfocal. EXTREMITIES: Lower extremities without edema bilaterally. Urinary Catheter Management^: Christy: Cath Placed During This Visit: yes Reason for Continuing Indwelling Catheter: Accurate Measurement of Urinary Output in Critically Ill Patients Urinary Catheter Date of Insertion: 08/26/20 Urinary Catheter Time of Insertion: 17:30 Data : 08/27/20 03:40 08/27/20 03:40 A&P Assessment and plan (1) Heart block AV complete: It appeared to me mostly heart block was secondary to electrolyte imbalance and hyperkalemia. I will reduce the backup rate to 50 we will further assess her over next 24 hours if he does not use temporary pacemaker we will discontinue it. Status: Acute (2) Shock: Improved and resolved Status: Acute (3) Atrial fibrillation: Most likely secondary to electrolyte imbalance currently in sinus rhythm. Status: Acute Qualifiers: Atrial fibrillation type: persistent (not longstanding) Qualified Code(s): I48.19 - Other persistent atrial fibrillation (4) Hyperlipidemia LDL goal <100: Continue current regimen. Status: Acute (5) Chest pain: Patient gives me history of chest pressure and pain radiating to neck and arm upon exertion for the last few days. Currently she is chest pain-free there is no significant ST-T ST changes suggestive of ischemia. I do not think that her heart block was secondary to ischemic event. I am planning to assess her with either left heart cath if creatinine stabilizes and normalized before discharge or possible stress test. I will assess LV function. Status: Acute (6) Acute respiratory failure with hypoxemia: Possible due to hypotension and prerenal etiology secondary to dehydration, Status: Acute (7) Hyperkalemia: Could be secondary to hyperglycemia, renal failure acute and ARB. It is now resolved Status: Acute (8) Pulmonary edema: Most likely due to aggressive IV fluid use. She was given IV Lasix last night 80 mg after that her output was 1600 since then she appeared to be euvolemic. Continue to monitor. Status: Acute Attestations Medical Necessity Statement*: Patient require continuation hospitalization for above defined care. Coding Level of Care Code Established Pt Acute Pararescue Manager for [facility] Patient Type Established History Detailed Exam Detailed Medical Decision Making Moderate Complexity Diagnoses Heart block AV complete I44.2 Shock R57.9 Atrial fibrillation I48.19 Atrial fibrillation type: persistent (not longstanding) Hyperlipidemia LDL goal <100 E78.5 Chest pain R07.9 Acute respiratory failure with hypoxemia J96.01 Hyperkalemia E87.5 Pulmonary edema J81.1
[2020-08-27 22:04] LABS: Glucose Point of Care 199 mg/dL (70-110)
[2020-08-28] VITALS (29 sets, daily range): BP systolic 121–190; BP diastolic 53–90; PULSE 58–99; RESP 12–27; TEMP 36.5–36.6; O2SAT 86–97
[2020-08-28] MEDS: heparin 5,000 unit/mL INJ 1 mL 5000 UNIT SUBCUT ×2 (02:30→18:06)
--- NOTE | 2020-08-28 12:15 | P.PN_ITS ---
Subjective Subjective: Interval history: Patient is doing well. Renal function has been improving and creatinine is 1.4 today. No more pauses/bradycardia. Temporary pacemaker has been taken out. Vitals/I&O/Wt Last Vital Signs Temp 97.9 F 08/28/20 09:00 Pulse 66 08/28/20 09:00 Resp 13 08/28/20 09:00 BP 165/73 08/28/20 09:00 Pulse Ox 91 08/28/20 09:00 08/27/20 08/28/20 08/28/20 22:59 06:59 14:59 Intake Total 120 / 480 120 / 120 Output Total 1600 / 1600 1375 / 2975 400 / 400 Balance -1480 / -1120 -1375 / -2495 -280 / -280 Weight last 48 hrs Weight 167 lb 6.4 oz Physical Exam Narrative: EXAM NARRATIVE: GENERAL: Patient is alert, awake and oriented x3. [] NECK: No jugular vein distension. [] HEENT: No cyanosis. No icterus. No pallor. [] HEART: Regular S1 and S2. No murmur, rub or gallop. [] LUNGS: Clear to auscultate bilaterally. [] ABDOMEN: Soft, nontender and nondistended. Positive bowel sounds. No guarding, rebound or tenderness. [] CENTRAL NERVOUS SYSTEM: Grossly nonfocal. [] EXTREMITIES: Lower extremities with no edema bilaterally. Pulses palpable in the lower extremities, both dorsalis pedis and posterior tibial. [] Urinary Catheter Management^: Christy: Cath Placed During This Visit: yes Reason for Continuing Indwelling Catheter: Accurate Measurement of Urinary Output in Critically Ill Patients Urinary Catheter Date of Insertion: 08/26/20 Urinary Catheter Time of Insertion: 17:30 Data : 08/27/20 03:40 08/28/20 13:37 A&P Assessment and plan (1) Heart block AV complete: Heart block was secondary to electrolyte imbalance and hyperkalemia. Temporary pacemaker removed today as after normalization of renal function and electrolyte imbalance, heart block has resolved. Status: Acute (2) Shock: Improved and resolved Status: Acute (3) Atrial fibrillation: Most likely secondary to electrolyte imbalance currently in sinus rhythm. Status: Acute Qualifiers: Atrial fibrillation type: persistent (not longstanding) Qualified Code(s): I48.19 - Other persistent atrial fibrillation (4) Hyperlipidemia LDL goal <100: Continue current regimen. Status: Acute (5) Chest pain: Patient has had several episodes of chest pressure recently. Plan for stress test versus coronary angiography on Sunday based on her creatinine. Status: Acute (6) Acute respiratory failure with hypoxemia: Possible due to hypotension and prerenal etiology secondary to dehydration, Status: Acute (7) Hyperkalemia: Could be secondary to hyperglycemia, renal failure acute and ARB. It is now resolved Status: Acute (8) Pulmonary edema: Resolved. Not getting IV fluids now. Respiratory status is stable. Status: Acute Attestations Medical Necessity Statement*: Care expected to cross 2 midnights. Patient presented with heart block and chest pain. Heart block has resolved however patient needs ischemic work-up before discharge. Awaiting renal function normalization Coding Level of Care Code Acute Double Reamer Operator for [facility] Diagnoses Heart block AV complete I44.2 Shock R57.9 Atrial fibrillation I48.19 Atrial fibrillation type: persistent (not longstanding) Hyperlipidemia LDL goal <100 E78.5 Chest pain R07.9 Acute respiratory failure with hypoxemia J96.01 Hyperkalemia E87.5 Pulmonary edema J81.1
--- NOTE | 2020-08-28 13:44 | PC.NURSE ---
Per cardiology hold morning dose of heparin, to pull pacer and sheath. Okay to give evening dose. Sheath pulled with no adverse effects, groin site without bleeding or bruising.
[2020-08-28 14:13] LABS: Anion Gap 17.8 (5-19); Blood Urea Nitrogen 31 mg/dL (8-23); Calcium 9.4 mg/dL (8.5-10.5); Carbon Dioxide 27 mmol/L (22-29); Chloride 93 mmol/L (98-107); Glucose 262 mg/dL (65-115); Osmolality Calculated 294 mOsm/kg (285-295); Potassium 3.8 mmol/L (3.5-5.1); Sodium 134 mmol/L (136-145)
--- NOTE | 2020-08-28 16:45 | P.PN_ITS ---
Subjective Subjective: Interval history: Up no new clinical events overnight. Patient did not have any rhythm abnormalities. No chest pain or shortness of breath. Was weaned off oxygen. Was sitting in chair. Medications: Reviewed: Yes Vitals/I&O/Wt Last Vital Signs Temp 97.9 F 08/28/20 09:00 Pulse 72 08/28/20 15:38 Resp 16 08/28/20 15:38 BP 165/73 08/28/20 09:00 Pulse Ox 94 08/28/20 15:38 08/28/20 08/28/20 08/28/20 06:59 14:59 22:59 Intake Total 120 / 120 Output Total 1375 / 2975 400 / 400 Balance -1375 / -2495 -280 / -280 Weight last 48 hrs Weight 75.931 kg Physical Exam Narrative: EXAM NARRATIVE: Alert awake no distress on o2 via NC Eyes: Pupils equal round and reactive to light and accommodation extraocular muscles appear intact ENT : Grossly unremarkabl e Heart: Regular rate and rhythm. Telemetry strip shows paced rhythm at 80. No murmur auscultated GI: soft NT.N Extremities: No clubbing cyanosis or edema good peripheral pulses. Neuro:No grossly abnormality Urinary Catheter Management^: Christy: Cath Placed During This Visit: yes Reason for Continuing Indwelling Catheter: Accurate Measurement of Urinary Output in Critically Ill Patients Urinary Catheter Date of Insertion: 08/26/20 Urinary Catheter Time of Insertion: 17:30 Data : 08/27/20 03:40 08/28/20 13:37 A&P Assessment and plan (1) Heart block AV complete: Managed by cardiology Temp. pacemaker Removed HR normal Maintain electrolytes Further plan per cardiology Status: Acute (2) Hyperkalemia: Improved, K normal Repeat BPM in am Status: Acute (3) Acute respiratory failure with hypoxemia: On RA today Status: Acute (4) Atrial fibrillation: per cardiology Status: Acute Qualifiers: Atrial fibrillation type: persistent (not longstanding) Qualified Code(s): I48.19 - Other persistent atrial fibrillation (5) Hyponatremia: likely related to medications Status: Acute Attestations Medical Necessity Statement*: Will require further hospitalizationFor management of heart block Time Spent in Patient Care: Greater than 35 minutes Coding Level of Care Code Acute Director Medical Science for [facility] Diagnoses Heart block AV complete I44.2 Hyperkalemia E87.5 Acute respiratory failure with hypoxemia J96.01 Atrial fibrillation I48.19 Atrial fibrillation type: persistent (not longstanding) Hyponatremia E87.1
[2020-08-28] MEDS: ALPRAZolam 0.25 mg Tablet PO (18:06)
[2020-08-29] VITALS (26 sets, daily range): BP systolic 141–193; BP diastolic 50–120; PULSE 59–94; RESP 3–39; TEMP 36.4–36.6; O2SAT 92–99
[2020-08-29] MEDS: heparin 5,000 unit/mL INJ 1 mL 5000 UNIT SUBCUT ×3 (03:54→18:54)
[2020-08-29 04:56] LABS: Eosinophils % 0.9 %; Hematocrit 39.1 % (37.0-47.0); Hemoglobin 13.2 g/dL (11.5-15.3); Lymphocytes # 0.7 10^3/uL (0.8-4.8); Lymphocytes % 20.3 %; Mean Corpuscular HGB Conc 33.8 g/dL (30.0-36.0); Mean Corpuscular Hemoglobin 31.1 pg (28.0-34.0); Mean Platelet Volume 10.9 fL (7.4-10.4); Monocytes # 0.3 10^3/uL (0.2-0.9); Monocytes % 8.3 %; Neutrophils # 2.46 10^3/uL (1.8-7.7); Neutrophils % 70.2 %; Nucleated Red Blood Cells % 0 %; Platelet Count 168 10^3/cmm (130-400); Red Blood Count 4.25 10^6/uL (4.1-5.3); Red Cell Distribution Width 12.8 % (12.1-15.1); White Blood Count 3.5 10^3/uL (4.0-10.0)
[2020-08-29 05:30] LABS: Alanine Aminotransferase 15 U/L (0-33); Alkaline Phosphatase 39 IU/L (35-105); Anion Gap 15.1 (5-19); Aspartate Amino Transferase 16 U/L (0-32); Blood Urea Nitrogen 29 mg/dL (8-23); Calcium 8.8 mg/dL (8.5-10.5); Carbon Dioxide 27 mmol/L (22-29); Chloride 96 mmol/L (98-107); Glucose 183 mg/dL (65-115); Osmolality Calculated 289 mOsm/kg (285-295); Potassium 4.1 mmol/L (3.5-5.1); Sodium 134 mmol/L (136-145); Total Bilirubin 0.3 mg/dL (0.15-1.2)
[2020-08-29] MEDS: ALPRAZolam 0.25 mg Tablet PO ×3 (07:47→21:51)
--- NOTE | 2020-08-29 10:07 | PC.SOCIAL ---
IM follow explained and form provided for reference. Patient verbalized understanding and had no questions.
[2020-08-29] MEDS: amlodipine 10 mg Tablet PO (12:23)
[2020-08-29] MEDS: losartan 50 mg Tablet PO (12:23)
--- NOTE | 2020-08-29 19:16 | P.PN_ITS ---
Subjective Subjective: Interval history: No new clinical events overnight. No fever, chills, nausea or vomiting, was noted to be hypertensive. Denied chest pain or palpitation Medications: Reviewed: Yes Vitals/I&O/Wt Last Vital Signs Temp 97.6 F 08/29/20 09:00 Pulse 71 08/29/20 16:00 Resp 11 L 08/29/20 16:00 BP 184/95 08/29/20 17:00 Pulse Ox 97 08/29/20 16:00 08/29/20 08/29/20 08/29/20 06:59 14:59 22:59 Intake Total 600 / 600 Balance 600 / 600 Weight last 48 hrs Weight 76.204 kg Weight 75.931 kg Physical Exam Narrative: EXAM NARRATIVE: Alert awake no distress on RA Eyes: Pupils equal round and reactive to light and accommodation extraocular muscles appear intact ENT : Grossly unremarkable Heart: Regular rate and rhythm. GI: soft NT.N Extremities: No clubbing cyanosis or edema good peripheral pulses. Neuro:No grossly abnormality Urinary Catheter Management^: Christy: Cath Placed During This Visit: yes, but has since been removed by the nurse Reason for Continuing Indwelling Catheter: Accurate Measurement of Urinary Output in Critically Ill Patients Urinary Catheter Date of Insertion: 08/26/20 Urinary Catheter Time of Insertion: 17:30 Date Urinary Catheter Removed: 08/28/20 Time Urinary Catheter Discontinued: 15:00 Data : 08/29/20 04:27 08/29/20 04:27 A&P Assessment and plan (1) Heart block AV complete: Resolved Managed by cardiology Temp. pacemaker Removed HR normal Maintain electrolytes Further plan per cardiology Status: Acute (2) Hyperkalemia: Improved, K normal Repeat BPM in am Status: Acute (3) Acute respiratory failure with hypoxemia: On RA Status: Acute (4) Atrial fibrillation: per cardiology Status: Acute Qualifiers: Atrial fibrillation type: persistent (not longstanding) Qualified Code(s): I48.19 - Other persistent atrial fibrillation (5) Hyponatremia: likely related to medications Status: Acute (6) Acute kidney injury: Renal function improving Creatinine 1.2 today Repeat BPM in am Status: Acute Attestations Medical Necessity Statement*: Continue hospitalization for management of hypertension. Transfer to [facility]. Discharge planning per cardiology Time Spent in Patient Care: Greater than 35 minutes (>than 50% of time spent in counselling and/or direct pt care on unit) . Coding Level of Care Code Acute Nursing Unit Coordinator for [facility] Diagnoses Heart block AV complete I44.2 Hyperkalemia E87.5 Acute respiratory failure with hypoxemia J96.01 Atrial fibrillation I48.19 Atrial fibrillation type: persistent (not longstanding) Hyponatremia E87.1 Acute kidney injury N17.9
--- NOTE | 2020-08-29 19:54 | PC.NURSE ---
Transfer orders Transfer orders received for cardiac stepdown unit. Report called to LINNETTE Carrillo at this time. Pt transported to room 101 via wheelchair.
--- NOTE | 2020-08-29 20:28 | P.PN_ITS ---
Subjective Subjective: Interval history: Patient is doing well. No complaints of chest pain, shortness of breath or palpitations. Temporary pacemaker was removed. Renal function has improved. Plan for cardiac cath today Vitals/I&O/Wt Last Vital Signs Temp 97.6 F 08/29/20 09:00 Pulse 74 08/29/20 19:00 Resp 19 H 08/29/20 19:00 BP 166/72 08/29/20 19:00 Pulse Ox 95 08/29/20 19:00 08/29/20 08/29/20 08/29/20 06:59 14:59 22:59 Intake Total 600 / 600 Balance 600 / 600 Weight last 48 hrs Weight 168 lb Weight 167 lb 6.4 oz Physical Exam Narrative: EXAM NARRATIVE: GENERAL: Patient is alert, awake and oriented x3. [] NECK: No jugular vein distension. [] HEENT: No cyanosis. No icterus. No pallor. [] HEART: Regular S1 and S2. No murmur, rub or gallop. [] LUNGS: Clear to auscultate bilaterally. [] ABDOMEN: Soft, nontender and nondistended. Positive bowel sounds. No guarding, rebound or tenderness. [] CENTRAL NERVOUS SYSTEM: Grossly nonfocal. [] EXTREMITIES: Lower extremities with no edema bilaterally. Pulses palpable in the lower extremities, both dorsalis pedis and posterior tibial. [] Urinary Catheter Management^: Christy: Cath Placed During This Visit: yes, but has since been removed by the nurse Reason for Continuing Indwelling Catheter: Accurate Measurement of Urinary Output in Critically Ill Patients Urinary Catheter Date of Insertion: 08/26/20 Urinary Catheter Time of Insertion: 17:30 Date Urinary Catheter Removed: 08/28/20 Time Urinary Catheter Discontinued: 15:00 Data : 08/29/20 04:27 08/30/20 03:46 A&P Assessment and plan (1) Heart block AV complete: Heart block was secondary to electrolyte imbalance and hyperkalemia. Temporary pacemaker removed today as after normalization of renal function and electrolyte imbalance, heart block has resolved. Plan for coronary angiogram tomorrow if renal function stays normal. NPO past midnight. Status: Acute (2) Shock: Improved and resolved Status: Acute (3) Atrial fibrillation: Most likely secondary to electrolyte imbalance currently in sinus rhythm. Status: Acute Qualifiers: Atrial fibrillation type: persistent (not longstanding) Qualified Code(s): I48.19 - Other persistent atrial fibrillation (4) Hyperlipidemia LDL goal <100: Continue current regimen. Status: Acute (5) Chest pain: Patient has had several episodes of chest pressure recently. Plan for coronary angiography tomrrow. Status: Acute (6) Acute respiratory failure with hypoxemia: Possible due to hypotension and prerenal etiology secondary to dehydration, Status: Acute (7) Hyperkalemia: Could be secondary to hyperglycemia, renal failure acute and ARB. It is now resolved Status: Acute (8) Pulmonary edema: Resolved. Not getting IV fluids now. Respiratory status is stable. Status: Acute Attestations Medical Necessity Statement*: Care expected to cross 2 midnights. Coding Level of Care Code Acute Scientific Specialist for Zakia Merrill Diagnoses Heart block AV complete I44.2 Shock R57.9 Atrial fibrillation I48.19 Atrial fibrillation type: persistent (not longstanding) Hyperlipidemia LDL goal <100 E78.5 Chest pain R07.9 Acute respiratory failure with hypoxemia J96.01 Hyperkalemia E87.5 Pulmonary edema J81.1
[2020-08-29] MEDS: gemfibrozil 600 mg Tablet PO (21:51)
[2020-08-29] MEDS: temazepam 15 mg Capsule PO (21:52)
[2020-08-29] MEDS: hyDRALAzine 50 mg Tablet PO (21:52)
[2020-08-30] VITALS (27 sets, daily range): BP systolic 100–180; BP diastolic 48–96; PULSE 60–88; RESP 12–24; TEMP 36.2–36.6; O2SAT 92–98; BMI 28.8
[2020-08-30 05:38] LABS: Basophils % 0.2 %; Eosinophils # 0.1 10^3/uL (0.0-0.8); Eosinophils % 1.6 %; Hematocrit 38.6 % (37.0-47.0); Hemoglobin 12.9 g/dL (11.5-15.3); Lymphocytes # 1.6 10^3/uL (0.8-4.8); Lymphocytes % 36.5 %; Mean Corpuscular HGB Conc 33.4 g/dL (30.0-36.0); Mean Corpuscular Hemoglobin 30.5 pg (28.0-34.0); Mean Corpuscular Volume 91.3 fL (81-99); Mean Platelet Volume 11.9 fL (7.4-10.4); Monocytes # 0.4 10^3/uL (0.2-0.9); Monocytes % 8.7 %; Neutrophils # 2.24 10^3/uL (1.8-7.7); Neutrophils % 52.8 %; Nucleated Red Blood Cells % 0 %; Platelet Count 149 10^3/cmm (130-400); Red Blood Count 4.23 10^6/uL (4.1-5.3); Red Cell Distribution Width 12.9 % (12.1-15.1); White Blood Count 4.3 10^3/uL (4.0-10.0)
[2020-08-30] MEDS: heparin 5,000 unit/mL INJ 1 mL 5000 UNIT SUBCUT (05:45)
[2020-08-30 06:48] LABS: Alanine Aminotransferase 23 U/L (0-33); Albumin Level 3.9 g/dL (3.5-5.2); Alkaline Phosphatase 39 IU/L (35-105); Aspartate Amino Transferase 31 U/L (0-32); Blood Urea Nitrogen 27 mg/dL (8-23); Calcium 9.3 mg/dL (8.5-10.5); Carbon Dioxide 24 mmol/L (22-29); Chloride 98 mmol/L (98-107); Globulin 2.8 g/dL (1.3-4.6); Glucose 159 mg/dL (65-115); Osmolality Calculated 290 mOsm/kg (285-295); Sodium 136 mmol/L (136-145); Total Bilirubin 0.3 mg/dL (0.15-1.2); Total Protein 6.7 g/dL (6.6-8.7)
[2020-08-30 07:03] LABS: Anion Gap 17.9 (5-19); Potassium 3.9 mmol/L (3.5-5.1)
[2020-08-30 08:42] LABS: Slide Review Slide Review Perform
[2020-08-30] MEDS: hyDRALAzine 50 mg Tablet PO ×2 (09:53→21:12)
[2020-08-30] MEDS: amlodipine 10 mg Tablet PO (09:53)
[2020-08-30] MEDS: losartan 50 mg Tablet PO (09:53)
[2020-08-30] MEDS: gemfibrozil 600 mg Tablet PO ×2 (09:58→21:12)
--- NOTE | 2020-08-30 10:04 | PM.PN ---
Subjective Subjective: Interval history: This morning she is doing well. She denies any chest pain or pressure. She says she is breathing comfortably. No difficulties with urination. No nausea vomiting or diarrhea. Vitals/I&O/Wt Last Vital Signs Temp 97.1 F L 08/30/20 07:09 Pulse 70 08/30/20 07:09 Resp 16 08/30/20 07:09 BP 160/68 08/30/20 09:53 Pulse Ox 97 08/30/20 07:09 08/29/20 08/30/20 08/30/20 22:59 06:59 14:59 Intake Total 100 / 700 0 / 700 Balance 100 / 700 0 / 700 Weight last 48 hrs Weight 76.204 kg Weight 76.204 kg Physical Exam Const: COMMON NORMALS: no acute distress and patient oriented x3 NUTRITIONAL APPEARANCE: overweight HENMT: COMMON NORMALS: oropharynx normal Neck/C-Spine: COMMON NORMALS: no JVD Resp: COMMON NORMALS: normal respiratory effort and clear to auscultation bilaterally AUSCULTATION: clear to auscultation bilaterally Cardio: COMMON NORMALS: no JVD, regular rhythm, S1 normal heart sound present, S2 normal heart sound present and No murmurs present (Cardio) RHYTHM: regular rhythm HEART SOUNDS: S1 normal heart sound present and S2 normal heart sound present GI: COMMON NORMALS: Normal to inspection, nondistended, normoactive bowel sounds present, Soft to palpation and non-tender PALPATION: Yes Soft to palpation Extremity: COMMON NORMALS: no joint enlargement and no pedal edema Neuro: COMMON NORMALS: patient oriented x3 and moves all extremities Skin: COMMON NORMALS: no rashes or lesions noted GENERAL SKIN EXAM: no rashes or lesions noted Urinary Catheter Management^: Christy: Cath Placed During This Visit: yes, but has since been removed by the nurse Reason for Continuing Indwelling Catheter: Accurate Measurement of Urinary Output in Critically Ill Patients Urinary Catheter Date of Insertion: 08/26/20 Urinary Catheter Time of Insertion: 17:30 Date Urinary Catheter Removed: 08/28/20 Time Urinary Catheter Discontinued: 15:00 Data : 08/30/20 03:46 08/30/20 03:46 A&P Assessment and plan (1) Heart block AV complete: Pending additional assessment by cardiology for significant coronary disease/ischemic causes of heart block. Off Temp. pacemaker HR normal Maintain electrolytes Status: Acute (2) HTN (hypertension): Resistant hypertension, being optimized by cardiology. Currently on amlodipine, losartan, hydralazine. This morning blood pressures 160s/60s. Continue to monitor. Status: Acute (3) Hyperkalemia: Resolved Status: Acute (4) Acute respiratory failure with hypoxemia: Doing well on RA Status: Acute (5) Atrial fibrillation: per cardiology Status: Acute Qualifiers: Atrial fibrillation type: persistent (not longstanding) Qualified Code(s): I48.19 - Other persistent atrial fibrillation (6) Hyponatremia: likely related to medications Status: Acute (7) Acute kidney injury: Renal function improving Creatinine stabilized at 1.2 Status: Acute Attestations Medical Necessity Statement*: Continue admission for assessment management of causes of heart block, assessment for possible coronary disease/ischemic causes with coronary geography, optimization of control of difficult to control hypertension. Coding Level of Care Code Acute Kindergarten Tutor for [facility] Diagnoses Heart block AV complete I44.2 HTN (hypertension) I10 Hyperkalemia E87.5 Acute respiratory failure with hypoxemia J96.01 Atrial fibrillation I48.19 Atrial fibrillation type: persistent (not longstanding) Hyponatremia E87.1 Acute kidney injury N17.9
[2020-08-30] MEDS: diphenhydrAMINE 50 mg Capsule PO (10:24)
[2020-08-30] MEDS: ALPRAZolam 0.25 mg Tablet PO ×2 (10:25→21:12)
[2020-08-30] MEDS: sodium chloride 0.9% 1,000 ML 50 ML IV (10:25)
--- NOTE | 2020-08-30 10:31 | PC.NURSE ---
off unit to hoisting laborer
--- NOTE | 2020-08-30 10:51 | XACV_ITS ---
Exam Room: [facility] Ht: 163 cm Wt: 91 kg BSA: 2.06 m2 Gender: Female : 1945 Any Known Allergies: Other Exam Priority: Routine Procedure(s): Procedure Description: Diagnostic procedure Procedure Description: PCI procedure Procedure Description: Left Heart Catheterization Procedure Description: Drug Eluting Coronary Stent Procedure Description: PTCA Diagnostic Cath Status: Elective Diagnostic Findings * LM has 0% stenosis. * pLAD to mLAD: Moderate 60% stenosis, LOKI: 3 flow. * pCIRC: Mild 40% stenosis, LOKI: 3 flow. * Proximal Right Coronary Artery: Severe 95% stenosis, LOKI: 2 flow. * Coronary angiography shows right dominance. Interventional Findings * Proximal Right Coronary Artery: 95% stenosis treated with two AB MINI TREK 2.00X12 RX BALLOON, two AB MINI TREK 1.50X8 RX BALLOON, AB TREK 2.50X12 RX BALLOON, MDT Scott MADELINE 2.75X30 DAVID, and MDT ALEX EUPHORA RX [id number] BALLOON. 0% residual stenosis, LOKI: 3 flow. Conclusions 1. There is severe coronary artery disease with three vessel disease. 2. Proximal Right Coronary Artery was treated with 6 Balloon and Drug Eluting Stent. 3. Indication for angiogram: 4. Unstable angina. Recommendations * 1-Return to inpatient for close monitoring and routine cath care 2-Risk factor modification for secondary prevention 3-Statin and aspirin 81 mg life--long, if tolerated 4-Patient was pre-loaded with 600 mg of Plavix, continue Plavix 75mg p.o. daily for at least one year. We will assess at the end of one year again to continue if further or not 5-Continue optimal medical management 6-Follow up with Dr. Mcdaniel in four weeks and your primary care in 10 days. Interventional RX Recommendation: PCI w/o planned CABG Diagnostic RX Recommendation: PCI w/o planned CABG Clinical Evaluation EBL: 5mL-10mL Procedural Details Procedure Consent Obtained. Admit Source: In Patient. Pre-Procedure Time Out. Identified patient by full name and date of as verbalized by the patient/guarantor. Does the consent match the physician's order: Yes. Accurate & Complete Informed Consent: Yes. Inpatient/Outpatient History & Physical on Chart: Yes. If H&P is completed, is and addenduem needed: N/A; If yes, is the addendum complete: N/A. Visualize and Verify Site with Patient/Guarantor: N/A. Relevant Radiology Images available: N/A. Pre-op teaching completed and patient verbalized understanding. The risks, benefits, and alternatives of sedation and/or procedure were discussed by physician. The patient agrees to continue. Procedure started. Correct patient, site and procedure confirmed by cath team. PERRLA. Strong, equal hand television presenter bilaterally. Lungs clear x 5 lobes. IV Site on Arrival: 20 gauge in the right anticubital. Oxygen started at 2liters/min via nasal canula. bilateral groins was prepped with chloroprep then draped in the usual sterile fashion. right radial was prepped with chloroprep then draped in the usual sterile fashion. Baseline sample Acquired. HR: 71 BPM. Physician notified. Physician arrived. Physician scrubbed in. Immediate Pre-Procedure Time Out. Correct Patient: Yes; Correct Procedure: Yes; Correct Site: Yes; Correct Patient Position: Yes; Correct Supplies: Yes; Dried Flammable Prep: Yes; Blood Products Available: N/A;. Lidocaine 1% infiltrated to the right radial. Arterial access obtained. A 6 macedonian TIG catheter in over wire. Multiple views taken of left coronary artery. Catheter redirected to the RCA. Catheter out. Multiple views taken of right coronary artery. 6 macedonian JR 4 guide catheter was inserted over the wire. [place] guidewire was advanced through the guide catheter to lesion in the prox RCA. Inflation number : 1 A AB MINI TREK 2.00X12 RX BALLOON was prepped and advanced across the Prox RCA , then inflated to 18 REYNA for 0:16 seconds. Balloon out. Inflation number : 2 A AB MINI TREK 1.50X8 RX BALLOON was prepped and advanced across the Prox RCA , then inflated to 18 REYNA for 0:09 seconds. Inflation number: 3 The AB MINI TREK 1.50X8 RX BALLOON was reinflated across the Prox RCA, to 18 REYNA for 0:13 seconds. Inflation number: 4 The AB MINI TREK 1.50X8 RX BALLOON was reinflated across the Prox RCA, to 20 REYNA for 0:12 seconds. Balloon out. Wire out. Guide catheter out. [place] guidewire was advanced through the guide catheter to lesion in the prox RCA. Nohemy scrubbed in for [place]. Balloon and wire out. 6 macedonian AL 0.75 guide catheter was inserted over the wire. exchange wire inserted. [place] guidewire was advanced through the guide catheter to lesion in the prox RCA. Inflation number : 5 A AB MINI TREK 1.50X8 RX BALLOON was prepped and advanced across the Prox RCA , then inflated to 14 REYNA for 0:42 seconds. Inflation number: 6 The AB MINI TREK 1.50X8 RX BALLOON was reinflated across the Prox RCA, to 14 REYNA for 0:25 seconds. Balloon out. Inflation number : 7 A AB MINI TREK 2.00X12 RX BALLOON was prepped and advanced across the Prox RCA , then inflated to 18 REYNA for 0:18 seconds. Inflation number: 8 The AB MINI TREK 2.00X12 RX BALLOON was reinflated across the Prox RCA, to 14 REYNA for 0:16 seconds. Balloon out. stent was flared, stent out intact, will not go back in body. Inflation number : 9 A AB TREK 2.50X12 RX BALLOON was prepped and advanced across the Prox RCA , then inflated to 14 REYNA for 0:14 seconds. Inflation number: 10 The AB TREK 2.50X12 RX BALLOON was reinflated across the Prox RCA, to 14 REYNA for 0:12 seconds. Balloon and wire out. Inflation Number : 11 A YUDITH Chavez MADELINE 2.75X30 DAVID -Lot Number# [id number] exp date: 03-30-2022 was prepped and advanced across the Prox RCA. The stent was deployed at 16 REYNA for 0:35 seconds. Results checked. Stent balloon out over wire. FFR not working at this time. Inflation number : 12 A MDT NC EUPHORA RX [id number] BALLOON was prepped and advanced across the Prox RCA , then inflated to 16 REYNA for 0:21 seconds. Inflation number: 13 The MDT NC EUPHORA RX [id number] BALLOON was reinflated across the Prox RCA, to 18 REYNA for 0:14 seconds. Inflation number: 14 The MDT NC EUPHORA RX [id number] BALLOON was reinflated across the Prox RCA, to 16 REYNA for 0:25 seconds. Balloon out. Results checked. Wire out. Guide catheter out. TR band placed. Hemostasis obtained. [facility] Clinical Fraility Score: 3: Managing Well. Biodiesel Plant Superintendent Indications: New Onset Angina/ heart block. Chest Pain Symptom Assessment: Typical Angina Symptoms. Cardiovascular Instability: No,. Post Procedure: Pulses reassessed and unchanged. PERRLA. Strong, equal hand television presenter bilaterally. No VTE prophylaxis required. Medication's Wasted: Other = versed 1 mg. Medication's Wasted: Other = fentanyl 50 mg. Medication's Wasted: Lidocaine 1% = 18 mL. Medication's Wasted: Heparin = 2000 units. Medication's Wasted: Nitro = 49.6 mg. Total IV fluids: 92.8 mL. Contrast type used: Omnipaque 300 mgI/mL, 500 mL bottle. Contrast Material : Omnipaque 316 ml. PCI Indication: highly calcified significant Prox RCA stenosis. Post-op diagnosis: Drug eluting stent prox RCA. Complications: none. Estimated blood loss: 5mL-10mL. A TR Band was successful obtaining hemostatsis at the Right Radial artery insertion site. Procedure completed. Patient transferred by wheelchair to 1st floor. Vital chart was stopped. ACT drawn. Results 286 seconds. Therapeutic limits - pre-heparin administration 90-150 seconds and monitoring heparin during a vascular procedure >250 seconds. Access Site Site: Right Radial artery Sheath Size: 6 Fr Hemostasis Method: TR Band Hemostasis Success: Successful Procedure Medications Start: 11:01 AM Stop: 11: AM Medication: Versed Amount: 1 mg Route: I.V. Start: 11:01 AM Stop: 11: AM Medication: Fentanyl Amount: 25 mcg Route: I.V. Start: 11:05 AM Stop: 11:05 AM Medication: Nitrogylcerin Amount: 200 mcg Route: I.A. Start: 11: AM Stop: : AM Medication: Heparin Amount: 5000 units Route: I.V. Start: 11: AM Stop: : AM Medication: Heparin Amount: 4000 units Route: I.V. Start: 11:18 AM Stop: :18 AM Medication: Nitrogylcerin Amount: 200 mcg Route: I.C. Start: 11:36 AM Stop: 11:36 AM Medication: Versed Amount: 1 mg Route: I.V. Start: 11:42 AM Stop: 11:42 AM Medication: Nitrogylcerin Amount: 200 mcg Route: I.C. Start: 11:45 AM Stop: 11:45 AM Medication: Versed Amount: 1 mg Route: I.V. Start: 11:46 AM Stop: 11:46 AM Medication: Fentanyl Amount: 25 mcg Route: I.V. Start: 11:50 AM Stop: 11:50 AM Medication: Aggrastat 12.5 mg/250 mL Amount: 46 ml Route: I.V. bolus Start: 11:57 AM Stop: 11:57 AM Medication: Aggrastat 12.5 mg/250 mL Amount: 16.6 ml/hr Route: I.V. drip Start: 12:14 PM Stop: 12:14 PM Medication: Plavix Amount: 600 mg Route: P.O. I, the attending physician, have reviewed and verified all procedure medications. Yes, all medications given per verbal order History/Risk Factors Hypertension: No Dyslipidemia: Yes Peripheral Arterial Disease (PAD): No Myocardial Infarction (UT): No Obesity: Yes Renal Disease: No Prior Interventions PCI: No CABG: No Valve Surgery: No Report Signatures Finalized by Viraj Mcdaniel MD on 09/10/2020 08:25 PM
--- NOTE | 2020-08-30 10:54 | P.PN_ITS ---
Subjective Subjective: Interval history: This morning patient underwent coronary angiogram after complete heart block and off-and-on chest pain which in the past few days has been worsening suspicious for exertional angina. Patient was noted to have moderate mid LAD stenosis thought to be not significant while RCA had sluggish flow with tandem proximal to mid highly calcified 99% stenotic lesion. Both lesions were treated with single drug-eluting stent after somewhat difficulty. Stent was then postdilated with noncompliant balloon. Excellent angiographic result was achieved. Medications: Reviewed: Yes Vitals/I&O/Wt Last Vital Signs Temp 97.1 F L 08/30/20 07:09 Pulse 70 08/30/20 07:09 Resp 16 08/30/20 07:09 BP 160/68 08/30/20 09:53 Pulse Ox 97 08/30/20 07:09 08/29/20 08/30/20 08/30/20 22:59 06:59 14:59 Intake Total 100 / 700 0 / 700 Balance 100 / 700 0 / 700 Weight last 48 hrs Weight 168 lb Weight 168 lb Physical Exam Narrative: EXAM NARRATIVE: GENERAL: Patient is alert, awake and oriented x3. NECK: No jugular vein distension. HEENT: No cyanosis. No icterus. No pallor. HEART: Regular rhythm S1 and S2. No murmur, rub or gallop. LUNGS: Clear to auscultate bilaterally. ABDOMEN: Soft, nontender and nondistended. Positive bowel sounds. No guarding, rebound or tenderness. CENTRAL NERVOUS SYSTEM: Grossly nonfocal. EXTREMITIES: Lower extremities without edema bilaterally. Urinary Catheter Management^: Christy: Cath Placed During This Visit: yes, but has since been removed by the nurse Reason for Continuing Indwelling Catheter: Accurate Measurement of Urinary Output in Critically Ill Patients Urinary Catheter Date of Insertion: 08/26/20 Urinary Catheter Time of Insertion: 17:30 Date Urinary Catheter Removed: 08/28/20 Time Urinary Catheter Discontinued: 15:00 Data : 08/30/20 03:46 08/30/20 03:46 A&P Assessment and plan (1) Heart block AV complete: Most likely due to electrolyte imbalance and acute renal failure. Patient was also noted to be ischemic in RCA territory it was treated with drug-eluting stent. Continue aspirin statin and clopidogrel. Status: Acute (2) Atrial fibrillation: Most likely secondary to electrolyte imbalance currently in sinus rhythm. It was brief. Of time patient may not have atrial fibrillation as she continues to be in sinus rhythm Status: Acute Qualifiers: Atrial fibrillation type: persistent (not longstanding) Qualified Code(s): I48.19 - Other persistent atrial fibrillation (3) Hyperlipidemia LDL goal <100: Continue to treat with antilipid therapy Status: Acute (4) Chest pain: As above patient underwent PCI. Continue to monitor Status: Acute Qualifiers: Chest pain type: precordial pain Qualified Code(s): R07.2 - Precordial pain (5) Acute respiratory failure with hypoxemia: Possible due to hypotension and prerenal etiology secondary to dehydration, Status: Acute (6) Hyperkalemia: Resolved. Status: Acute (7) Pulmonary edema: Resolved. Status: Acute Qualifiers: Chronicity: acute Qualified Code(s): J81.0 - Acute pulmonary edema (8) Acute kidney injury: Resolved. Continue to monitor after PCI to avoid contrast-induced nephropathy. Continue IV fluids Status: Acute Attestations Medical Necessity Statement*: Patient require continuation hospitalization for above defined care. Coding Level of Care Code Established Pt Acute Reaming Machine Operator for Zakia Merrill Patient Type Established History Detailed Exam Detailed Medical Decision Making Moderate Complexity Diagnoses Heart block AV complete I44.2 Atrial fibrillation I48.19 Atrial fibrillation type: persistent (not longstanding) Hyperlipidemia LDL goal <100 E78.5 Chest pain R07.2 Chest pain type: precordial pain Acute respiratory failure with hypoxemia J96.01 Hyperkalemia E87.5 Pulmonary edema J81.0 Chronicity: acute Acute kidney injury N17.9
--- NOTE | 2020-08-30 10:55 | W.PM.OPSUD ---
Surgery/Procedure H&P Update DATE OF PROCEDURE: August 30, 2020 DATE H&P PERFORMED: 09/23/20 H&P UPDATE INFORMATION: I have reviewed H&P completed within last 30 days, I have examined patient prior to procedure and No changes to prior documentation PREOP DIAGNOSIS: Chest pain suspicious for unstable angina, complete heart block PLANNED PROCEDURE: Operation Date: 08/26/20 11:00 Proposed Procedures p Temporary Pacemaker Placement(Not Applicable) - Viraj Mcdaniel MD PATIENT REASSESSED PRIOR TO SEDATION, WITH NO CHANGE NOTED: Yes PHYSICAL EXAM: alert, oriented x 3, clear to auscultation bilaterally and regular rate & rhythm AIRWAY EVAL/ANESTHESIA PLAN: ASA II, Risks, benefits & alternatives of sedation and/or procedure discussed and Patient agrees to continue as planned
--- NOTE | 2020-08-30 12:15 | PC.NURSE ---
From blood bank laboratory professional Pt is alert, mild drowsiness post sedation. TR band intact with air. No bleeding, hematoma or swelling. Radial pulse is palpable +3. Activity restrictions on her right arm discuss to pt. Call light within reach.
[2020-08-30] MEDS: sodium chloride 0.9% 1,000 ML 100 ML IV (12:45)
--- NOTE | 2020-08-30 14:15 | PC.NURSE ---
Aggrastat off Aggrastat drip turne off as ordered.
[2020-08-30] MEDS: gabapentin 300 mg Capsule PO (17:14)
--- NOTE | 2020-08-30 18:00 | PC.NURSE ---
TR Band off TR band off. No hematoma, swelling, bleeding noted at this time. Activity restrictions discuss to pt. Radial pulse is palpable.
[2020-08-30] MEDS: NON-FORMULARY MEDICATION (Brimonidine-Timolol [Combigan] 0.2-0.5 % drops) 1 EACH EYEAFF (21:12)
[2020-08-31] VITALS (12 sets, daily range): BP systolic 107–155; BP diastolic 50–79; PULSE 58–73; RESP 12–17; TEMP 36.7–36.8; O2SAT 95–98
[2020-08-31] MEDS: heparin 5,000 unit/mL INJ 1 mL 5000 UNIT SUBCUT (02:28)
[2020-08-31] MEDS: sodium chloride 0.9% 1,000 ML 100 ML IV (03:50)
[2020-08-31] MEDS: clopidogrel 75 mg Tablet PO (08:59)
[2020-08-31] MEDS: gemfibrozil 600 mg Tablet PO (08:59)
[2020-08-31] MEDS: losartan 50 mg Tablet PO (08:59)
[2020-08-31] MEDS: gabapentin 300 mg Capsule PO (08:59)
[2020-08-31] MEDS: amlodipine 10 mg Tablet PO (09:00)
[2020-08-31] MEDS: hyDRALAzine 50 mg Tablet PO (09:00)
[2020-08-31] MEDS: NON-FORMULARY MEDICATION (Brimonidine-Timolol [Combigan] 0.2-0.5 % drops) 1 EACH EYEAFF (09:01)
--- NOTE | 2020-08-31 09:23 | PC.CHAP ---
Pastoral Care Encounter/Spiritual Assessment Type of Contact [] Declined associate professor of communication visit [] Patient/Family/Request visit [] Outpatient visit [] Follow-up visit [] Physician referral [] Code/Alert [x] Routine visit [] Staff referral [] Actively dying [] Patient sleeping [] Family support [] [] Out of room [] Palliative care [] [] Receiving care in room [] Pre-surgical visit [] Trauma [] Long length of stay [] ICU visit [] Other: Relational/Emotional Strength [] Patient feels connected with others/family/visitors/staff [] Distress [] Loneliness/isolation [] Abandonment Spirituality of Patient [x] Person of Alison [] Attends Faith of their Alison [] Believes in Prayer [] Reads Bible or Sabianism materials [] There are Spiritual issues to be addressed Core Filer Interventions x[] Prayer [x] Active listening x[x] Non-anxious presence [x] Spiritual/emotional support [] Crisis/trauma care [] Spiritual counseling [] Bereavement support [] Provided bereavement packet [] Provided Bible/devotional materials [] Provided toy/stuffed animal, coloring book to patient or family member [] Provided Communion [] Anointing/Homer [] Salvation [x] Completed spiritual assessment [] Other: Impact on Illness or Injury [] Angry [] Fearful [] Anxious [] Often cries [] Exhaustion [] Unable to work [] Unable to attend muslim [] Unable to walk/stand [] Unable to read [] Unable to drive [] Unable to eat/drink [] Unable to sleep [] Unable to be with family [] Patient intubated [] Other: Summary patient feeling so well ready to go home Time spent with patient 10 min
--- NOTE | 2020-08-31 10:13 | P.PN_ITS ---
Subjective Subjective: Interval history: No overnight event post PCI to proximal to mid RCA. Patient remained in sinus rhythm no significant bradycardia or heart block noted. Medications: Reviewed: Yes Vitals/I&O/Wt Last Vital Signs Temp 98.0 F 08/31/20 07:27 Pulse 70 08/31/20 07:27 Resp 15 08/31/20 07:27 BP 155/79 08/31/20 08:59 Pulse Ox 97 08/31/20 07:27 08/30/20 08/31/20 08/31/20 22:59 06:59 14:59 Intake Total 1140 / 1500 1120 / 1120 Output Total 500 / 500 0 / 500 Balance 640 / 1000 0 / 1000 1120 / 1120 Weight last 48 hrs Weight 179 lb 8 oz Weight 168 lb Physical Exam Narrative: EXAM NARRATIVE: GENERAL: Patient is alert, awake and oriented x3. NECK: No jugular vein distension. HEENT: No cyanosis. No icterus. No pallor. HEART: Regular rhythm S1 and S2. No murmur, rub or gallop. LUNGS: Clear to auscultate bilaterally. ABDOMEN: Soft, nontender and nondistended. Positive bowel sounds. No guarding, rebound or tenderness. CENTRAL NERVOUS SYSTEM: Grossly nonfocal. EXTREMITIES: Lower extremities without edema bilaterally. Const: COMMON NORMALS: alert Resp: COMMON NORMALS: clear to auscultation bilaterally AUSCULTATION: clear to auscultation bilaterally Neuro: SENSORIUM/ORIENTATION: Yes alert Urinary Catheter Management^: Christy: Cath Placed During This Visit: yes, but has since been removed by the nurse Reason for Continuing Indwelling Catheter: Accurate Measurement of Urinary Output in Critically Ill Patients Urinary Catheter Date of Insertion: 08/26/20 Urinary Catheter Time of Insertion: 17:30 Date Urinary Catheter Removed: 08/28/20 Time Urinary Catheter Discontinued: 15:00 Data : 08/30/20 03:46 08/30/20 03:46 A&P Assessment and plan (1) Heart block AV complete: Most likely due to electrolyte imbalance. No pacemaker needed. Status: Acute (2) Atrial fibrillation: Patient did not have permanent or paroxysmal A. fib most likely it was due to electrolyte imbalance. No more A. fib noted. Status: Acute Qualifiers: Atrial fibrillation type: persistent (not longstanding) Qualified Code(s): I48.19 - Other persistent atrial fibrillation (3) Hyperlipidemia LDL goal <100: Continue to treat with antilipid therapy Status: Acute (4) Chest pain: Patient underwent coronary angiogram noted to have moderate LAD stenosis which was not significant thought to be managed medically. Proximal to mid RCA was treated with drug-eluting stent patient is doing fine from a cardiovascular perspective continue aspirin statin beta-niru on hold due to history of heart block continue clopidogrel Status: Acute Qualifiers: Chest pain type: precordial pain Qualified Code(s): R07.2 - Precordial pain (5) Acute respiratory failure with hypoxemia: Improved. Status: Acute (6) Hyperkalemia: Resolved. Status: Acute (7) Pulmonary edema: Resolved. Status: Acute Qualifiers: Chronicity: acute Qualified Code(s): J81.0 - Acute pulmonary edema (8) Acute kidney injury: Improved. Status: Acute Attestations Medical Necessity Statement*: Patient can be discharged home. Follow-up with cardiology in 7 days. Coding Level of Care Code Established Pt Acute Meteorology Professor for Zakia Merrill Patient Type Established History Detailed Exam Detailed Medical Decision Making Moderate Complexity Diagnoses Heart block AV complete I44.2 Atrial fibrillation I48.19 Atrial fibrillation type: persistent (not longstanding) Hyperlipidemia LDL goal <100 E78.5 Chest pain R07.2 Chest pain type: precordial pain Acute respiratory failure with hypoxemia J96.01 Hyperkalemia E87.5 Pulmonary edema J81.0 Chronicity: acute Acute kidney injury N17.9
--- NOTE | 2020-08-31 10:53 | DCPLANNER ---
IMM completed on 08/31/20 @ 5417. Copy of rights given to pt.
--- NOTE | 2020-08-31 11:48 | P.DS_ITS ---
Discharge Providers Date of Admission: 08/26/20 14:53 Date of Discharge: August 31, 2020 Attending Provider at Admission: Viraj Mcdaniel MD Attending Provider at Discharge: Viraj Mcdaniel MD Primary Care Provider: Mary Lou Hayes APN Diagnoses at Discharge Discharge Diagnosis (1) Heart block AV complete: Status: Acute (2) Atrial fibrillation: Status: Acute Qualifiers: Atrial fibrillation type: persistent (not longstanding) Qualified Code(s): I48.19 - Other persistent atrial fibrillation (3) Hyperlipidemia LDL goal <100: Status: Acute (4) Chest pain: Status: Acute Qualifiers: Chest pain type: precordial pain Qualified Code(s): R07.2 - Precordial pain (5) Acute respiratory failure with hypoxemia: Status: Acute (6) Hyperkalemia: Status: Acute (7) Pulmonary edema: Status: Acute Qualifiers: Chronicity: acute Qualified Code(s): J81.0 - Acute pulmonary edema (8) Acute kidney injury: Status: Acute Reason for Visit Reason for Visit: SYNCOPE/ DIZZY/ WEAK Hospital Course Hospital Course 75-year-old lady admitted due to extreme dizziness, episodes of presyncope, with respiratory failure noted on presentation requiring BiPAP support, noted to be in complete heart block on presentation. With noted past history of HTN, HLD. Heart rates are in the 30s. Initial EKG noted atrial fibrillation with slow ventricular response, although without any recurrence of this later in the hospitalization. With noted hyperkalemia on presentation 7.5. Acute kidney injury, creatinine 2.3. Received IV hydration, treatment of hyperkalemia with insulin, dextrose, albuterol nebulization. Kayexalate. Heart rate support with dopamine infusion. Temporary pacing. Cardiogenic shock resolved. Pulmonary edema improved with IV diuresis. Oxygenation gradually improved. She later reported exertional chest pain several days duration prior to admission. With improvement electrolytes temporary pacing was discontinued. She weaned off dobutamine. With coronary disease risk factors, anginal symptoms underwent additional assessment by coronary angiography with finding of 99% stenotic lesion in RCA, moderate mid LAD stenosis. RCA lesion was stented. She will continue on aspirin, Plavix, statin. Atrial fibrillation supposed to be briefly most likely related to severe electrolyte normalities, and per cardiology considered likely not to have atrial fibrillation. She has been doing great, maintain blood pressures, heart rate is staying stable. She has had no further chest pain, including with ambulation. Denies any trouble breathing. Has not required any supplemental oxygen. Prior to discharge we will assess home O2 ev aluation. With heart block on presentation, is not on lidia blocking agents currently. Due to acute kidney injury, hyperkalemia, olmesartan for now is discontinued. She started amlodipine. She is asked to follow-up with cardiology in office. Physical Exam Const: COMMON NORMALS: no acute distress and patient oriented x3 HENMT: COMMON NORMALS: oropharynx normal Neck/C-Spine: COMMON NORMALS: no JVD Resp: COMMON NORMALS: normal respiratory effort and clear to auscultation bilaterally AUSCULTATION: clear to auscultation bilaterally Cardio: COMMON NORMALS: no JVD, regular rhythm, S1 normal heart sound present, S2 normal heart sound present and No murmurs present (Cardio) RHYTHM: regular rhythm HEART SOUNDS: S1 normal heart sound present and S2 normal heart sound present GI: COMMON NORMALS: Normal to inspection, nondistended, normoactive bowel sounds present, Soft to palpation and non-tender PALPATION: Yes Soft to palpation Extremity: COMMON NORMALS: no joint enlargement and no pedal edema OTHER: R wrist with adhesive dressing, no bruising/swelling or bleeding. Mild numbness/tenderness 4th digit, she discussed w cardiology, posibly related to lidocaine/sheath. Knows to monitor for any signs of ischemia. Neuro: COMMON NORMALS: patient oriented x3 and moves all extremities Skin: COMMON NORMALS: no rashes or lesions noted GENERAL SKIN EXAM: no rashes or lesions noted Urinary Catheter Management^: Christy: Cath Placed During This Visit: yes, but has since been removed by the nurse Reason for Continuing Indwelling Catheter: Accurate Measurement of Urinary Output in Critically Ill Patients Urinary Catheter Date of Insertion: 08/26/20 Urinary Catheter Time of Insertion: 17:30 Date Urinary Catheter Removed: 08/28/20 Time Urinary Catheter Discontinued: 15:00 Discharge Data Data Completed and Pending: Completed Studies During Hospitalization Category Date Time Status MEDICAL ESTHETICIAN request for service Stat Exams 08/26/20 11:46 Completed XR chest 1V ren ble [id number] Stat Exams 08/26/20 11:12 Completed XR chest 1V ren ble [id number] Stat Exams 08/26/20 17:22 Completed CV echo complete* [id number] Routine Ultrasound 08/27/20 07:00 Completed Pending at discharge Category Date Time Status MEDICAL ESTHETICIAN request for service Routin e Exams 08/30/20 10:51 Taken Vitals: Last Vital Signs Temp 98.2 F 08/31/20 10:50 Pulse 68 08/31/20 10:50 Resp 15 08/31/20 10:50 BP 155/79 08/31/20 10:50 Pulse Ox 97 08/31/20 10:50 Discharge Plan Discharge Patient Disposition: Home Condition: Stable Prescriptions: New amlodipine 10 mg tablet 10 mg PO DAILY Qty: 30 RF: 4 aspirin [Adult Aspirin Regimen] 81 mg tablet,delayed release (DR/EC) 81 mg PO DAILY Qty: 90 RF: 4 clopidogrel 75 mg Tablet 75 mg PO DAILY Qty: 90 RF: 4 atorvastatin 20 mg tablet 20 mg PO DAILY Qty: 30 RF: 4 Continued latanoprost 0.005 % drops 1 drp ophthalmic (eye) BEDTIME@1999 RF: 0 oxybutynin chloride 10 mg tablet extended release 24hr 10 mg PO DAILY@0900 RF: 0 glipizide 10 mg tablet extended release 24hr 10 mg PO BID@, RF: 0 gemfibrozil 600 mg tablet 600 mg PO BID@, RF: 0 gabapentin 300 mg capsule See Rx Instructions .ROUTE .COMPLEX RF: 0 ergocalciferol (vitamin D2) 1,250 mcg (50,000 unit) capsule 50,000 unit PO Q7D RF: 0 lovastatin 20 mg tablet 20 mg PO DAILY@1999 RF: 0 fluticasone propionate 50 mcg/actuation Weir,Suspension 1 spray INTRANASAL DAILY PRN (Reason: Nasal Congestion) RF: 0 Combigan 0.2-0.5 % drops 1 drp ophthalmic (eye) BID@, RF: 0 Janumet XR 100-1,000 mg tablet, ER multiphase 24 hr 1 tab PO DAILY@0900 RF: 0 Invokana 300 mg tablet 300 mg PO DAILY@09 RF: 0 Discontinued olmesartan 40 mg tablet 40 mg PO DAILY@09 RF: 0 Discharge Orders: Discharge Order (Routine); Ordered 08/31/20 Ordered By: Sly Cesar Referrals: Viraj Mcdaniel MD [Physician] - 1 month (Please follow-up with Dr. Mcdaniel on October 05 at 3:00P.M. If you have any questions or need to reschedule. Please call ) Madeleine Larkin FNP [Nurse Practitioner] - 1 week (Please follow-up with Madeleine Larkin on September 07 at 1:30P.M. If you have any questions or need to reschedule. Please call ) Mary Lou Hayes APN [Primary Care Provider] - 4-7 days (Please follow-up with Mary Lou Hayes on September 06 at 10:15A.M. If you have any or need to reschedule. Please call ) Discharge Diet: Cardiac and Diabetic Discharge Activity: Increase activity as tolerated and Limit activity as instructed Patient Instructions: Amlodipine (By mouth), Atorvastatin (By mouth), Clopidogrel (By mouth), Left Heart Catheterization (DC), Coronary Angioplasty (DC), Post Angiogram Home Care Instructions Activity Restrictions/Additional Instructions: Avoid lifting more than 3 pounds for 2 days. Please monitor your heart rate and blood pressure at home, record values to bring to your appointment. If you notice that your heart rate is persistently little, below 50 bpm, and/or you are experiencing lightheadedness, feeling faint, chest pain, or other concerning symptoms, please seek medical attention without delay. Similarly seek medical attention if you notice any progressive swelling, pain, bleeding at the site of angiography catheter access. Discharge Attestations Time Spent in Discharge Care*: greater than 30 min Quality Metrics Clinical Quality Measures During this hospital stay, did patient experience: None Coding Level of Care Code Acute Veterinary Manager for Chg Fwd Diagnoses Heart block AV complete I44.2 Atrial fibrillation I48.19 Atrial fibrillation type: persistent (not longstanding) Hyperlipidemia LDL goal <100 E78.5 Chest pain R07.2 Chest pain type: precordial pain Acute respiratory failure with hypoxemia J96.01 Hyperkalemia E87.5 Pulmonary edema J81.0 Chronicity: acute Acute kidney injury N17.9
--- NOTE | 2020-08-31 13:05 | PC.NURSE ---
patient discharged home at this time self care provided patient with discharge instructions as well as new medication education patient assisted to wheel chair and accompanied to private vehicle by staff patient alert oriented and in stable condition upon departure
== END 2020-08-31 13:04 | disposition home or self-care (01) | DRG 246 ==
LOC: ER 11:46 → CCL 11:47 → CSU 13:46 → ICU 14:54 → CSU 08-29 20:01
PROVIDERS: Hospitalist; Internal Medicine; Admitting Provider Internal Medicine Cardiovascular Disease; Emergency Provider Family Medicine; PCP Nurse Practitioner Family; Visit Provider Internal Medicine Cardiovascular Disease
PROC: 5A1223Z Performance of Cardiac Pacing, Continuous (ICD-10-PCS; principal; 2020-08-26 11:00)
PROC: 027034Z Dilation of Coronary Artery, One Artery with Drug-eluting Intraluminal Device, Percutaneous Approach (ICD-10-PCS; principal; 2020-08-30 11:00)
PROC: 027034Z Dilation of Coronary Artery, One Artery with Drug-eluting Intraluminal Device, Percutaneous Approach (ICD-10-PCS; 2020-08-30 11:00)
DX: I44.2 Atrioventricular block, complete (principal); R57.0 Cardiogenic shock; J96.01 Acute respiratory failure with hypoxia; J81.0 Acute pulmonary edema; E87.1 Hypo-osmolality and hyponatremia; N17.9 Acute kidney failure, unspecified; I10 Essential (primary) hypertension; E78.5 Hyperlipidemia, unspecified; I95.9 Hypotension, unspecified; T50.905A Adverse effect of unspecified drugs, medicaments and biological substances, initial encounter; I25.10 Atherosclerotic heart disease of native coronary artery without angina pectoris
CPT/HCPCS: 33210; 36415; 36416; 51702; 71045; 80048; 80053; 82962; 83880; 84443; 84484; 85025; 85347; 85610; 93005; 93306; 93454; 94640; 94660; 96365; 96366; 96372; 99291; C1725; C1769; C1779; C1874; C1887; C1894; C9600; J0610; J1265; J1644; J1815; J1940; J2250; J3010; J3246; J3490; J7030; J7611; J7799; Q0163; Q9967

== ENCOUNTER → 2020-09-07 15:36 | Outpatient (BNVA) | payer MEDICARE, SELFPAY | PROVIDERS: PCP Nurse Practitioner Family; Visit Provider Nurse Practitioner Family | DX: R00.1 Bradycardia, unspecified (principal); I48.19 Other persistent atrial fibrillation | CPT/HCPCS: 80048 ==

== ENCOUNTER → 2020-10-05 14:42 | Outpatient (BNVA) | payer MEDICARE, SELFPAY | PROVIDERS: PCP Nurse Practitioner Family; Visit Provider Internal Medicine Cardiovascular Disease | DX: R00.1 Bradycardia, unspecified (principal) | CPT/HCPCS: 80048 ==

== ENCOUNTER → 2021-12-14 11:11 | Outpatient (BNVA) | payer MEDICARE, SELFPAY | PROVIDERS: PCP Nurse Practitioner Family; Visit Provider Internal Medicine Cardiovascular Disease | DX: I48.19 Other persistent atrial fibrillation (principal); I10 Essential (primary) hypertension; R00.1 Bradycardia, unspecified; I25.10 Atherosclerotic heart disease of native coronary artery without angina pectoris; Z79.01 Long term (current) use of anticoagulants; Z87.891 Personal history of nicotine dependence | CPT/HCPCS: 93005; 99214 ==

== ENCOUNTER → 2022-06-21 11:21 | Outpatient (BNVA) | payer MEDICARE, SELFPAY | PROVIDERS: PCP Nurse Practitioner Family; Visit Provider Internal Medicine Cardiovascular Disease | DX: I25.118 Atherosclerotic heart disease of native coronary artery with other forms of angina pectoris (principal); I48.19 Other persistent atrial fibrillation; I10 Essential (primary) hypertension; R00.1 Bradycardia, unspecified; Z87.891 Personal history of nicotine dependence | CPT/HCPCS: 99214 ==

== ENCOUNTER 2022-08-23 10:17 | Outpatient (CLI) | payer MEDICARE, SELFPAY ==
--- NOTE | 2022-08-23 | ECG_ITS ---
[facility] Test Date: 2022-08-23 Pat Name: Neisha Stratton Department: Room: Gender: Female Transmission Line Engineer: Eula Wolf : 1945 Requested By: Edson Carrillo Order Number: [id number] Janie MD: Edson Carrillo M.D. Interpretive Statements NAME OF STUDY: LEXISCAN SESTAMIBI STRESS TEST INDICATION: Shortness of Breath, PROCEDURE: At the baseline, the EKG revealed sinus bradycardia at a rate of 51 bpm. Some nonspecific T wave changes. The baseline heart was 51 bpm with a blood pressue of 151/61 mm of Hg Lexiscan was infused over a period of 20 seconds. A total of 0.4 milligrams of Lexiscan was infused. The stress phase was continued for a total of 5 minutes. Heart rate at the end of the stress phase was 78 bpm with a blood pressure 138/43 mm of Hg. The EKG at the peak infusion revealed no significant changes. Sestamibi was injected 20 seconds after the Lexiscan infusion. Heart rate at the end of the recovery phase was 68 bpm with a blood pressure of 128/41 mm of Hg. CONCLUSION: 1. No significant EKG changes with the LexiScan infusion 2. No LexiScan induced chest pain or cardiac arrhythmia 3. Normal blood pressure and heart rate response 4. Sestamibi/sestamibi perfusion scan pending; see separate report. Electronically Signed On 09-02-2022 14:43:34 COMPLAINT INSPECTOR by Edson Carrillo M.D. [id number]
[2022-08-23 10:36] VITALS: BMI 31.1
--- NOTE | 2022-08-23 10:38 | NMCV_ITS ---
NM anton perf SPECT r/s* [id number] Neisha Stratton Age: 77 Gender: F : 1945 Exam Date: 08/23/2022 10:38 Ordering Phys: Edson Carrillo MD ([email or web address]) Technologist: TANJA Aburto Exam Location: [facility] Indications: CORONARY ANGIOPLASTY STATUS STRESS TEST Please see separate stress test report in [facility] for full findings IMAGE PROTOCOL Rest/Stress 1 Lexiscan Day Radiopharmaceutical Dose (mCi) Administration Site Administered by Rest: Tc-99m 10.6 IV TANJA Ocampo Sestamibi Stress:Tc-99m 32.4 IV TANJA Ocampo Sestamibi Rest: 23-Aug-2022 60 Discovery 630 Stress: 23-Aug-2022 30 Discovery 630 0.4mg Lexiscan. Supine position only as patient was unable to lay prone. SPECT RESULTS Technical Quality: Excellent Raw Data Analysis: Normal Image Corrections: No attenuation or motion correction applied Summed Stress Score: 5 Summed Rest Score: 2 Summed Difference Score: 3 PERFUSION FINDINGS Small area of slightly decreased tracer uptake in the inferolateral, anterolateral and apical region. Some reversibility was noted in the anterolateral and apical regions FUNCTIONAL RESULTS (calculated via Gated SPECT) Stress Image LV EF (%): 75 Stress EDV (mL):76 TID: 1.1 Stress ESV (mL):19 FUNCTIONAL FINDINGS: Segmental wall motion analysis revealing no gross wall motion abnormalities IMPRESSIONS 1. Myocardial perfusion imaging revealing small areas of decreased tracer uptake in the anterolateral, inferolateral and apical lateral regions with subtle areas of reversibility in the anterolateral, apical lateral and LV apex, suggesting myocardial scarring with ischemia in the distribution of the left circumflex artery. 2. Normal LV ejection fraction 73%. .3. LV wall motion analysis revealing no gross wall motion abnormalities. 4. Normal LV volume. No similar previous studies are available for comparison Dr Edson Carrillo MD FACC (Electronically Signed) Final Date: 23 August 2022 17:49 S
[2022-08-23 12:00] VITALS: BP 128/41; PULSE 67
== END 2022-08-23 10:18 | disposition home or self-care (01) ==
PROVIDERS: PCP Nurse Practitioner Family; Visit Provider Internal Medicine Cardiovascular Disease
DX: Z98.61 Coronary angioplasty status (principal)
CPT/HCPCS: 36415; 78452; 93017; 96374; A9500

== ENCOUNTER → 2022-09-07 11:59 | Outpatient (BNVA) | payer MEDICARE, SELFPAY | PROVIDERS: PCP Nurse Practitioner Family; Visit Provider Nurse Practitioner Family | DX: L72.9 Follicular cyst of the skin and subcutaneous tissue, unspecified (principal) | CPT/HCPCS: 87070 ==

== ENCOUNTER → 2022-12-28 12:11 | Outpatient (BNVA) | payer MEDICARE, SELFPAY | PROVIDERS: PCP Nurse Practitioner Family; Visit Provider Internal Medicine Cardiovascular Disease | DX: R06.02 Shortness of breath (principal) | CPT/HCPCS: 36415; 80048; 99214 ==

== ENCOUNTER 2023-04-06 12:49 | Outpatient (CLI) | payer MEDICARE, SELFPAY ==
--- NOTE | 2023-04-06 12:56 | MM_ITS ---
WS: [id number] BILATERAL 3D TOMOSYNTHESIS DIGITAL SCREENING MAMMOGRAPHY WITH CAD CLINICAL INFORMATION: SCREENING HISTORY: Screening mammogram. No current complaints. COMPARISON: 2020 TECHNIQUE: Bilateral CC and MLO views. FINDINGS: Scattered fibroglandular densities bilaterally. No suspicious focal mass, asymmetry, calcifications, or architectural distortion. No evidence of malignancy. Vascular calcification. Incidental punctate a nd lucent centered calcifications. IMPRESSION: MM/[place] [id number] BI-RADS: 2-Benign FOLLOW UP: 1 Year Follow-up Recommend return to annual screening mammography.
== END 2023-04-06 12:50 | disposition home or self-care (01) ==
PROVIDERS: PCP Nurse Practitioner Family; Visit Provider Nurse Practitioner Family
DX: Z12.31 Encounter for screening mammogram for malignant neoplasm of breast (principal)
CPT/HCPCS: 77063; 77067

== ENCOUNTER → 2023-07-10 10:54 | Outpatient (BNVA) | payer MEDICARE, SELFPAY | PROVIDERS: PCP Nurse Practitioner Family; Visit Provider Internal Medicine Cardiovascular Disease | DX: I25.10 Atherosclerotic heart disease of native coronary artery without angina pectoris (principal); I48.19 Other persistent atrial fibrillation; E78.5 Hyperlipidemia, unspecified; I10 Essential (primary) hypertension; R00.1 Bradycardia, unspecified; Z87.891 Personal history of nicotine dependence | CPT/HCPCS: 99214 ==

== ENCOUNTER 2023-10-11 18:20 | Observation (INO) | payer MEDICARE, SELFPAY ==
[2023-10-11] VITALS (7 sets, daily range): BP systolic 136–203; BP diastolic 49–73; PULSE 64–84; RESP 16–20; TEMP 36.4–37; O2SAT 96–98; BMI 28.3
--- NOTE | 2023-10-11 18:26 | CTR_ITS ---
PROCEDURE INFORMATION: Exam: CT Head Without Contrast Exam date and time: 10/11/2023 6:39 PM Age: 78 years old Clinical indication: Weakness, extremity; Right; Additional info: TIA TECHNIQUE: Imaging protocol: Computed tomography of the head without contrast. Sagittal and coronal reformatted images were created and reviewed. Sagittal and coronal reformatted images were created and reviewed. Radiation optimization: All CT scans at this facility use at least one of these dose optimization techniques: automated exposure control; mA and/or kV adjustment per patient size (includes targeted exams where dose is matched to clinical indication); or iterative reconstruction. COMPARISON: No relevant prior studies available. RADIATION DOSE METRICS: Total DLP (mGy-cm): 1040.19 FINDINGS: Brain: No acute intracranial hemorrhage. No acute infarct. No intra-axial or extra-axial masses. Mancuso-white matter differentiation is preserved. No cerebral edema. No extra-axial fluid collections. No midline shift. No evidence for Chiari 1 malformation. Mild atrophy of the brain parenchyma. Mildly decreased attenuation in the deep white matter, consistent with mild chronic microangiopathic change. Cerebral ventricles: No hydrocephalus. Paranasal sinuses: Visualized paranasal sinuses are clear. Mastoid air cells: Mastoid air cells are clear bilaterally. Orbital cavities: Globes and lenses, extraocular muscles, and optic nerves are intact bilaterally. No acute intraorbital abnormality. Nasal cavity: Mild left nasal septal deviation. Bones/joints: Bones are diffusely osteopenic. Soft tissues: The extracranial soft tissues are unremarkable. Vasculature: Moderate atherosclerotic changes in the visualized arteries. CT/CT head wo con* [id number] IMPRESSION: 1. No acute abnormality of the brain. 2. Mild atrophy of the brain parenchyma. 3. Mild chronic white matter microangiopathic change. 4. Incidental/nonacute findings are listed in the report.
--- NOTE | 2023-10-11 18:26 | XRR_ITS ---
PROCEDURE INFORMATION: Exam: XR Chest Exam date and time: 10/11/2023 7:09 PM Age: 78 years old Clinical indication: Condition or disease; Other: Stroke like symptoms; Patient HX: PT presents to ED via [facility]. Per EMS PT had stroke-like symptoms @1715 for approx 5 min, that has now resolved. PT states she was sitting when she had R sided weakness, R sided facial droop, difficulty speaking. PT takes plavix. PT denies headache, chest pain. No facial droop noted currently, PT able to complete sentences; Additional info: TIA TECHNIQUE: Imaging protocol: Radiologic exam of the chest. Views: 1 view. COMPARISON: CR XR chest 1V portable [id number] 08/26/2020 5:39 PM FINDINGS: Lungs: Lungs are clear bilaterally. Pleural spaces: No pleural effusion. No pneumothorax. Heart/Mediastinum: Stable mild enlargement of the cardiac silhouette. Mediastinal contours are unremarkable. Vasculature: Stable vascular calcifications in the aorta. Bones/joints: Unremarkable for age. XR/XR chest 1V portable [id number] IMPRESSION: 1. No acute cardiopulmonary process. 2. Incidental/nonacute findings are listed in the report.
--- NOTE | 2023-10-11 18:27 | ED_ITS ---
HPI - General Adult 2 General: Chief complaint: Neuro Symptoms/Deficit Stated complaint: stroke-like symptoms Time Seen by Provider: 10/11/23 18:22 Source: patient and EMS Mode of arrival: EMS Limitations: no limitations History of Present Illness: 78-year-old female states that roughly 5 PM she had sudden onset of right sided arm and leg weakness states she is having a hard time lifting her arm she was having slurred speech as well states this lasted roughly 10 minutes since completely resolved EMS she had no symptoms with them here she has no symptoms she is hypertensive she denies any headache or chest pain. Associated symptoms: Deny chest pain, dyspnea, headache(s), nausea, rash or vomiting Review of Systems 2 Const: Denies: fever(s), chills, body aches or change in appetite Eyes: Denies: blurry vision or eye discomfort ENMT: Denies: throat pain or dental pain Card: Denies: chest pain Resp: Denies: dyspnea GI: Denies: abdominal pain, nausea, vomiting or diarrhea Musc: Denies: neck pain or back pain Skin/Breast: Denies: rash Neuro: Reports: weakness in extremities; Denies: headache(s) PFSH ED 2 PFSH: Medical History Diabetes HTN (hypertension) Hyperlipidemia LDL goal <100 Atrial fibrillation Pt has bleeding tendency - not on OAC Surgical History Hx of heart artery stent x 1 S/P LASIK surgery Hx of tubal ligation Family History Father CAD (coronary artery disease), Onset Age: 70 [place] Mother Cancer Grandmother Cancer Diabetes Denies family history of Clotting disorder Dementia Chronic kidney disease (CKD) Suicide Anesthesia complication Bleeding disorder Lung disease Stroke Social History Smoking and tobacco/nicotine status: former use of tobacco/nicotine Alcohol intake: never Substance/Drug Use: never Physical Exam 2 Const: COMMON NORMALS: no acute distress, patient oriented x3 and healthy appearing HENMT: COMMON NORMALS: normocephalic and atraumatic HEAD & SCALP: n ormocephalic and atraumatic Neck/C-Spine: COMMON NORMALS: full ROM and supple Chest: COMMONS NORMALS: normal inspection of the chest Resp: COMMON NORMALS: normal respiratory effort, No retractions, No use of accessory muscles and clear to auscultation bilaterally AUSCULTATION: clear to auscultation bilaterally Cardio: COMMON NORMALS: regular rate, regular rhythm and No murmurs present (Cardio) RATE: regular rate RHYTHM: regular rhythm Extremity: COMMON NORMALS: normal to inspection and full ROM Neuro: COMMON NORMALS: patient oriented x3 CRANIAL NERVES: Yes CN normal except as noted SPEECH: speech normal MOTOR EXAM: 5/5 motor strength present throughout Psych: COMMON NORMALS: mental status grossly normal, Normal thought process present and cooperative THOUGHT PROCESS: Normal thought process present Skin: COMMON NORMALS: no rashes or lesions noted and no wounds GENERAL SKIN EXAM: no rashes or lesions noted Course 2 Vital Signs: Vital signs: Vital Signs Temperature 98.6 F 10/11/23 18:22 Pulse Rate 84 10/11/23 19:40 Respiratory Rate 20 H 10/11/23 19:40 Blood Pressure 136/49 10/11/23 19:40 Pulse Oximetry 97 10/11/23 19:40 Oxygen Delivery Me thod Room Air 10/11/23 18:22 MDM - General Adult Medical Decision Making Patient presents here with a TIA CT blood work here are normal. She has no history of stroke or TIA in the past will admit for observation for her TIA. Medical Records I reviewed the patient's medical records. Lab Data 10/11/23 18:56 10/11/23 18:56 Radiology Impressions Chest X-Ray 10/11/23 18:26 IMPRESSION: 1. No acute cardiopulmonary process. 2. Incidental/nonacute findings are listed in the report. Head CT 10/11/23 18:26 IMPRESSION: 1. No acute abnormality of the brain. 2. Mild atrophy of the brain parenchyma. 3. Mild chronic white matter microangiopathic change. 4. Incidental/nonacute findings are listed in the report. Laboratory Results WBC 4.38 10^3/uL (3.29-11.43) 10/11/23 18:56 RBC 3.87 10^6/uL (3.85-5.65) 10/11/23 18:56 Hgb 12.00 g/dL (11.27-16.99) 10/11/23 18:56 Hct 35.2 % (36-47) L 10/11/23 18:56 MCV 91.0 fl (85-98) 10/11/23 18:56 MCH 31.0 pg (27-33) 10/11/23 18:56 MCHC 34.1 g/dL (30-55) 10/11/23 18:56 RDW 12.2 % (12.1-15.1) 10/11/23 18:56 Plt Count 227 10^3/cmm (157-399) 10/11/23 18:56 MPV 10.4 fL (7.4-10.4) 10/11/23 18:56 Neut % (Auto) 66.9 % 10/11/23 18:56 Lymph % (Auto) 21.2 % 10/11/23 18:56 [place] % (Auto) 8.2 % 10/11/23 18:56 Eos % (Auto) 3.0 % 10/11/23 18:56 Baso % (Auto) 0.2 % 10/11/23 18:56 Neut # (Auto) 2.93 10^3/uL (1.8-7.7) 10/11/23 18:56 Lymph # (Auto) 0.9 10^3/uL (0.8-4.8) 10/11/23 18:56 [place] # (Auto) 0.4 10^3/uL (0.2-0.9) 10/11/23 18:56 Eos # (Auto) 0.1 10^3/uL (0.0-0.8) 10/11/23 18:56 Baso # (Auto) 0.0 10^3/uL (0.0-0.1) 10/11/23 18:56 Nucleated RBC % (auto) 0 % 10/11/23 18:56 Nucleated RBCs # 0.0 /100WBC 10/11/23 18:56 PT 13.70 SECONDS (12.1-14.9) 10/11/23 18:56 INR 1.02 (0.8-1.2) 10/11/23 18:56 Sodium 140 mmol/L (136-145) 10/11/23 18:56 Potassium 4.5 mmol/L (3.5-5.1) 10/11/23 18:56 Chloride 103 mmol/L (98-107) 10/11/23 18:56 Carbon Dioxide 22 mmol/L (22-29) 10/11/23 18:56 Anion Gap 19.5 (5-19) H 10/11/23 18:56 BUN 48 mg/dL (8-23) H 10/11/23 18:56 Creatinine 1.7 mg/dL (0.5-0.9) H 10/11/23 18:56 GFR Calculation Not Reportable 10/11/23 18:56 Glucose 138 mg/dL (65-115) H 10/11/23 18:56 Calculated Osmolality 305 mOsm/kg (285-295) H 10/11/23 18:56 Calcium 9.8 mg/dL (8.5-10.5) 10/11/23 18:56 Total Bilirubin 0.2 mg/dL (0.15-1.2) 10/11/23 18:56 AST 21 U/L (0-32) 10/11/23 18:56 ALT 20 U/L (0-33) 10/11/23 18:56 Alkaline Phosphatase 55 U/L (35-105) 10/11/23 18:56 Total Protein 7.4 g/dL (6.6-8.7) 10/11/23 18:56 Albumin 4.6 g/dL (3.5-5.2) 10/11/23 18:56 Globulin 2.8 g/dL (1.3-4.6) 10/11/23 18:56 All radiology interpretation(s) finalized by discharge EKG Data EKG 1: I personally reviewed and interpreted this EKG as follows: EKG interpretation date: 10/11/23 EKG interpretation time: 18:52 Interpretation: nsr hr [address] or t wave abnormalities qrs 91 qtc 404 Computer generated interpretation: Chest X-Ray 10/11/23 18:26 IMPRESSION: 1. No acute cardiopulmonary process. 2. Incidental/nonacute findings are listed in the report. Head CT 10/11/23 18:26 IMPRESSION: 1. No acute abnormality of the brain. 2. Mild atrophy of the brain parenchyma. 3. Mild chronic white matter microangiopathic change. 4. Incidental/nonacute findings are listed in the report. Discharge Plan Discharge Patient Disposition: Placed in Observation Clinical Impression: Transient cerebral ischemia Condition: Stable Prescriptions: No Action multivitamin Tablet 1 tab PO DAILY omega 4-hkp-erk-fish oil [Fish Oil] 1,000 mg (120 mg-180 mg) capsule 1 cap PO DAILY Ozempic 0.25 mg or 0.5 mg (2 mg/3 mL) pen injector 0.25 mg SUBCUT mupirocin 2 % ointment 1 applic topical BID Qty: 15 0RF atorvastatin 20 mg tablet 20 mg PO DAILY Qty: 90 3RF aspirin [Adult Aspirin Regimen] 81 mg tablet,delayed release (DR/EC) 81 mg PO DAILY Qty: 90 1RF isosorbide mononitrate 30 mg tablet extended release 24 hr 120 mg PO DAILY Qty: 360 3RF Rx Instructions: 10/13/22 Dose increased amlodipine 10 mg tablet See Rx Instructions .ROUTE .COMPLEX Qty: 90 3RF Dose Instruction: TAKE ONE TABLET BY MOUTH DAILY Rx Instructions: TAKE ONE TABLET BY MOUTH DAILY losartan 100 mg tablet See Rx Instructions .ROUTE .COMPLEX Qty: 90 3RF Dose Instruction: TAKE ONE TABLET BY MOUTH DAILY Rx Instructions: TAKE ONE TABLET BY MOUTH DAILY clopidogrel 75 mg tablet See Rx Instructions .ROUTE .COMPLEX Qty: 90 3RF Dose Instruction: TAKE ONE TABLET BY MOUTH DAILY Rx Instructions: TAKE ONE TABLET BY MOUTH DAILY chlorthalidone 25 mg tablet See Rx Instructions .ROUTE .COMPLEX Qty: 90 3RF Dose Instruction: TAKE ONE TABLET BY MOUTH DAILY Rx Instructions: TAKE ONE TABLET BY MOUTH DAILY potassium chloride 8 mEq capsule, extended release See Rx Instructions .ROUTE .COMPLEX Qty: 90 3RF Dose Instruction: TAKE ONE CAPSULE BY MOUTH DAILY Rx Instructions: TAKE ONE CAPSULE BY MOUTH DAILY furosemide 20 mg tablet See Rx Instructions .ROUTE .COMPLEX Qty: 30 5RF Dose Instruction: TAKE ONE TABLET BY MOUTH F NEEDED Rx Instructions: TAKE ONE TABLET BY MOUTH Daily NEEDED latanoprost 0.005 % drops 1 drp ophthalmic (eye) BEDTIME@1999 glipizide 10 mg tablet extended release 24hr 10 mg PO BID@09,20 gemfibrozil 600 mg tablet 600 mg PO BID@09,20 gabapentin 300 mg capsule See Rx Instructions .ROUTE .COMPLEX Rx Instructions: 300 mg orally 5 x daily PRN ergocalciferol (vitamin D2) 1,250 mcg (50,000 unit) capsule 50,000 unit PO Q7D Rx Instructions: (on ) fluticasone propionate 50 mcg/actuation [place],Suspension 1 spray INTRANASAL DAILY PRN (Reason: Nasal Congestion) Combigan 0.2-0.5 % drops 1 drp ophthalmic (eye) BID@Julumet XR 100-1,000 mg tablet, ER multiphase 24 hr 1 tab PO DAILY@0900 Invokana 300 mg tablet 300 mg PO DAILY@09 Referrals: Mary Lou Hayes APN [Primary Care Provider] - Coding Level of Care Code ED Licensed Electrician for Zakia Merrill NIH stroke score NIHSS Level Of Consciousness - 1a: 0 Level Of Consciousness Questions - 1b: Both Correct Level Of Consciousness Commands - 1c: Both Correct Best Gaze - 2: Normal Visual [place] - 3: No Visual Loss Facial Palsy - 4: Normal Motor Arm Right - 5: No Drift Motor Arm Left - 5: No Drift Motor Leg Right - 6: No Drift Motor Leg Left - 6: No Drift Limb Ataxia - 7: Absent Sensory - 8: Normal Best Language - 9: No Aphasia Dysarthia - 10: Normal Extinction And Inattention - 11: 0 Score Total Score: 0
--- NOTE | 2023-10-11 18:52 | ECG_ITS ---
[facility] Test Date: 2023-10-11 Pat Name: Neisha Stratton Department: Room: Gender: Female Customer Experience Intern: : 1945 Requested By: Almas Potts Order Number: [id number] Janie MD: Jacob Del Toro M.D. Measurements Intervals [place] Rate: 63 P: 56 OK: 165 QRS: 57 QRSD: 91 T: 68 QT: 397 QTc: 407 Interpretive Statements SINUS RHYTHM NONSPECIFIC ST & T-WAVE ABNORMALITY Compared to ECG 08/27/2020 16:55:46 Possible ischemia no longer present T-wave abnormality still present Electronically Signed On 10-12-2023 17:03:01 CDT by Jacob Del Toro M.D. [id number]
[2023-10-11 19:14] LABS: Basophils % 0.2 %; Eosinophils # 0.1 10^3/uL (0.0-0.8); Hematocrit 35.2 % (36-47); Lymphocytes # 0.9 10^3/uL (0.8-4.8); Lymphocytes % 21.2 %; Mean Corpuscular HGB Conc 34.1 g/dL (30-55); Mean Platelet Volume 10.4 fL (7.4-10.4); Monocytes # 0.4 10^3/uL (0.2-0.9); Monocytes % 8.2 %; Neutrophils # 2.93 10^3/uL (1.8-7.7); Neutrophils % 66.9 %; Nucleated Red Blood Cells % 0 %; Platelet Count 227 10^3/cmm (157-399); Red Blood Count 3.87 10^6/uL (3.85-5.65); Red Cell Distribution Width 12.2 % (12.1-15.1); White Blood Count 4.38 10^3/uL (3.29-11.43)
[2023-10-11 19:29] LABS: Alanine Aminotransferase 20 U/L (0-33); Albumin Level 4.6 g/dL (3.5-5.2); Alkaline Phosphatase 55 U/L (35-105); Anion Gap 19.5 (5-19); Aspartate Amino Transferase 21 U/L (0-32); Blood Urea Nitrogen 48 mg/dL (8-23); Calcium 9.8 mg/dL (8.5-10.5); Carbon Dioxide 22 mmol/L (22-29); Chloride 103 mmol/L (98-107); Creatinine Clr Calc Pharmacy 26.5846; Globulin 2.8 g/dL (1.3-4.6); Glucose 138 mg/dL (65-115); INR 1.02 (0.8-1.2); Osmolality Calculated 305 mOsm/kg (285-295); Potassium 4.5 mmol/L (3.5-5.1); Sodium 140 mmol/L (136-145); Total Bilirubin 0.2 mg/dL (0.15-1.2); Total Protein 7.4 g/dL (6.6-8.7)
--- NOTE | 2023-10-11 19:43 | P.HP_ITS ---
Providers/Chief Complaint 2 Primary Care Provider: Mary Lou Hayes APN Chief Complaint: stroke-like symptoms History of Present Illness Neisha Stratton is a 78 year old female with past medical history significant for coronary artery disease with history of PCI w/DAVID to RCA in August 2020, hypertension, hyperlipidemia, bradycardia, atrial fibrillation not on anticoagulation due to history of bleeding tendency, hypertension, tobacco use disorder in remission, and type 2 diabetes mellitus who presents to the emergency department with sudden onset of weakness in her right upper/lower extremities that occurred around 1700 today. The event was witnessed by her granddaughter who is bedside. She also provides some of the history as well. She notes she was having hard time moving extremities. She endorses associated slurred speech. Granddaughter also notes facial droop. She reports symptoms lasted for about 10 minutes. EMS was called and by the time EMS evaluated patient's neurological state was back to baseline. She was found to be markedly hypertensive at that time. Patient denies other alleviating or aggravating factors. She denies any prior history of transient ischemic attacks or strokes. She has a history of paroxysmal atrial fibrillation. In the ED, EKG was notable for sinus rhythm. She underwent a 30 day event monitor read in July 2023 which showed no atrial fibrillation. Family notes that patient is usually very active and outgoing. Review of Systems 2 Narrative: A complete review of systems was obtained and is negative except as stated in HPI. Medications/Allergies Home Medications Medication Instructions Recorded Confirmed Last Taken Type brimonidine 0.2 %-timolol 0.5 % 1 drp ophthalmic (eye) BID@08/27/20 10/11/23 10/11/23 07:00 History eye drops (Combigan) canagliflozin 300 mg tablet 300 mg PO DAILY@08/27/20 10/11/23 10/11/23 07:00 History (Invokana) ergocalciferol (vitamin D2) 1,250 50,000 unit PO Q7D 08/27/20 10/11/23 10/11/23 07:00 History mcg (50,000 unit) capsule gabapentin 300 mg capsule See Rx Instructions .Route .COMPLEX 08/27/20 10/11/23 10/11/23 07:00 History gemfibrozil 600 mg tablet 600 mg PO BID@08/27/20 10/11/23 10/11/23 07:00 History glipizide 10 mg tablet, extended 10 mg PO BID@09,20 08/27/20 10/11/23 10/11/23 07:00 History release 24 hr latanoprost 0.005 % eye drops 1 drp ophthalmic (eye) BEDTIME@199908/27/20 10/11/23 10/10/23 19:00 History sitagliptin phos 100 mg-metformin 1 tab PO DAILY@89908/27/20 10/11/23 10/11/23 07:00 History ER 1,000 mg tablet,extend rel 24h mp (Janumet XR) atorvastatin 20 mg tablet 20 mg PO DAILY #90 tabs 06/27/21 10/11/23 10/10/23 21:00 Rx aspirin 81 mg tablet,delayed 81 mg PO DAILY #90 tabs 10/18/21 10/11/23 10/11/23 07:00 Rx release (Adult Aspirin Regimen) multivitamin 1 tab PO DAILY 12/14/21 10/11/23 10/11/23 07:00 History omega 2-yiw-kde-fish oil 1,000 mg 1 cap PO DAILY 12/14/21 10/11/23 10/11/23 07:00 History (120 mg-180 mg) capsule (Fish Oil) isosorbide mononitrate 30 mg 120 mg (4 x 30 mg) PO DAILY #360 10/13/22 10/11/23 10/11/23 07:00 Rx tablet,extended release 24 hr tabs amlodipine 10 mg tablet See Rx Instructions .Route 12/13/22 10/11/23 10/10/23 19:00 Rx .COMPLEX #90 tabs losartan 100 mg tablet See Rx Instructions .Route 12/13/22 10/11/23 10/11/23 07:00 Rx .COMPLEX #90 tabs clopidogrel 75 mg tablet See Rx Instructions .Route 03/22/23 10/11/23 10/11/23 07:00 Rx .COMPLEX #90 tabs chlorthalidone 25 mg tablet See Rx Instructions .Route 06/12/23 10/11/23 10/10/23 21:00 Rx .COMPLEX #90 tabs potassium chloride 8 mEq See Rx Instructions .Route 07/09/23 10/11/23 10/11/23 07:00 Rx capsule,extended release .COMPLEX #90 caps semaglutide 0.25 mg or 0.5 mg (2 0.25 mg SUBCUT 07/10/23 07/10/23 10/11/23 07:00 History mg/3 mL) subcutaneous pen injector (Ozempic) furosemide 20 mg tablet See Rx Instructions .Route 07/16/23 10/11/23 10/04/23 07:00 Rx .COMPLEX #30 tabs Allergies Allergy/AdvReac Type Severity Reaction Status Date / Time naproxen [From Aleve] Allergy Unknown Verified 12/28/22 10:37 PFSH Acute 2 PFSH: Medical History (Updated 10/11/23 @ 21:52 by Lonnie Lara MD) Obesity Diabetes HTN (hypertension) Hyperlipidemia LDL goal <100 Atrial fibrillation Pt has bleeding tendency - not on OAC Surgical History Hx of heart artery stent x 1 S/P LASIK surgery Hx of tubal ligation Family History Father CAD (coronary artery disease), Onset Age: 70 [place] Mother Cancer Grandmother Cancer Diabetes Denies family history of Clotting disorder Dementia Chronic kidney disease (CKD) Suicide Anesthesia complication Bleeding disorder Lung disease Stroke Social History Smoking and tobacco/nicotine status: former use of tobacco/nicotine Alcohol intake: never Substance/Drug Use: never Vitals/I&O/Wt Last Vital Signs Temp 98.6 F 10/11/23 18:22 Pulse 84 10/11/23 19:40 Resp 20 H 10/11/23 19:40 BP 136/49 10/11/23 19:40 Pulse Ox 97 10/11/23 19:40 O2 Del Method Room Air 10/11/23 18:22 Weight last 48 hrs Weight 74.843 kg Physical Exam 2 Narrative: General: Patient is awake and alert. Head: Normocephalic. Atraumatic. EOM intact. Neck: No JVD. Cardiovascular: RRR. No gallops. No murmurs. No peripheral edema. Lungs: Clear to auscultation, no use of accessory muscles, no crackles or wheezes. Skin: No jaundice. No rashes. Abdomen: Normal bowel sounds, abdomen soft and nontender. Genito Urinary: Genital exam not performed since complaints not related. Rectal: Rectal exam not performed since no symptoms indicated blood loss. Extremities: No cyanosis or clubbing. Musculoskeletal: 5/5 strength, normal range of motion, no swollen or erythematous joints. Neurological: Moves all 4 extremities. No myoclonus. Data 10/11/23 18:56 10/11/23 18:56 A&P Assessment and plan (1) Transient cerebral ischemia: Transient strokelike symptoms with right upper and lower extremity weakness accompanied by slurred speech, duration ~10 minutes consistent with transient ischemic attack ABCD2 Score of 6 = High Risk: ---2-Day Stroke Risk: 8.1% ---7-Day Stroke Risk: 11.7% ---90-Day Stroke Risk: 17.8% CTH negative for acute intracranial abnormalities Hold off on CT head/neck angio given resolution of symptoms and renal function, will instead evaluate with carotid doppler ultrasound for carotid artery stenosis MRI head without contrast ordered A1c and lipids in a.m. for risk stratification Evaluate echo for evidence of clot burden from A-fib DVT prophylaxis Continue DAPT with aspirin/Plavix Continue atorvastatin, increase dose to high intensity Neurochecks Continuous telemetry monitoring Allow permissive hypertension overnight holding home antihypertensives Hydralazine for SBP>220 mmHg or DBP>120 mmHg (2) HTN (hypertension): Allow permissive hypertension overnight Monitor blood pressure closely As above Qualifiers: Hypertension type: essential hypertension Qualified Code(s): I10 - Essential (primary) hypertension (3) Atherosclerosis of coronary artery of [place] heart without angina pectoris: Continue aspirin Continue Plavix Continue statin Qualifiers: Coronary Disease-Associated Artery/Lesion type: [place] artery Qualified Code(s): I25.10 - Atherosclerotic heart disease of [place] coronary artery without angina pectoris (4) Atrial fibrillation: Not on anticoagulation due to history of bleeding issues Follows with [facility] cardiology group Obtaining echo as above Event monitor from July reviewed Telemetry monitoring Qualifiers: Atrial fibrillation type: persistent (not longstanding) Qualified Code(s): I48.19 - Other persistent atrial fibrillation (5) Diabetes: Check A1c in a.m. Hold home oral medications Sliding-scale insulin correction (6) Leg edema: Hold home diuretics for permissive hypertension (7) Chronic kidney disease: Appears to be around stage IIIb Admission CrCl 32 Renally dose medications Avoid nephrotoxins (8) Obesity: Would benefit from weight loss Taking Ozempic as outpatient; hold while admitted Plan DVT prophylaxis: Lovenox CODE STATUS: Full code Attestations 2 Medical Necessity Statement*: Patient presents with transient strokelike symptoms consistent with TIA. She has multiple risk factors for recurrent TIA and stroke for which patient is admitted to observation with expected hospitalization not to cross 2 midnights for further workup and monitoring. Coding Level of Care Code Acute Code for [facility] Diagnoses Transient cerebral ischemia G45.9 Essential hypertension I10 Hypertension type: essential hypertension Atherosclerosis of [place] coronary artery of [place] heart without angina pectoris I25.10 Coronary Disease-Associated Artery/Lesion type: [place] artery Persistent atrial fibrillation I48.19 Atrial fibrillation type: persistent (not longstanding) Diabetes E11.9 Leg edema R60.0 Chronic kidney disease N18.9 Obesity E66.9
--- NOTE | 2023-10-11 20:41 | USCV_ITS ---
Neisha Stratton Age: 78 Gender: F : 1945 Exam Date: 10/11/2023 21:32 Ordering Phys: Lonnie Lara MD Technologist: MARK [place]am [place] [facility] [place] [facility] [place]ication: TIA - RIGHT hemiparesis and slurred speech today, now mostly resolved. BP: 136 / 49 HR: 64 Rhythm: Sinus Technical Quality: Adequate MEASUREMENTS (Male / Female) Normal Values 2D ECHO LV Diastolic Diameter PLAX 3.6 cm 4.2 - 5.9 / 3.9 - 5.3 cm IVS Diastolic Thickness 1.4 cm 0.6 - 1.0 / 0.6 - 0.9 cm IVS Systolic Thickness 1.5 cm LVPW Diastolic Thickness 1.2 cm 0.6 - 1.0 / 0.6 - 0.9 cm LVPW Systolic Thickness 1.6 cm LVOT Diameter 2.0 cm LV Ejection Fraction 2D Teich 58.8 % LV Ejection Fraction MOD 2C 61.0 % LV Ejection Fraction 2C AL 60.7 % LA Diameter 3.3 cm LA Sys Volume AL 31.8 cm cubed Aorta at Sinotubular Diameter 2.4 cm IVC Diameter 1.0 cm M-MODE LA Ao Ratio MM 1.4 AV Cusp Separation MM 1.4 cm DOPPLER AV Peak Velocity 168.0 cm/s LVOT Peak Velocity 109.0 cm/s AV Area Cont Eq vti 2.6 cm squared AV Area Cont Eq pk 2.1 cm squared MV Peak Velocity 113.0 cm/s MV Area PHT 3.4 cm squared Mitral E to A Ratio 0.8 TV Peak E Velocity 51.0 cm/s PV Peak Velocity 113.0 cm/s FINDINGS Left Ventricle Left ventricle is normal size. LV systolic function is normal with EF of 60-65%. No regional wall motion abnormalities are seen. Grade 1 diastolic dysfunction Right Ventricle Normal in size and function Right Atrium Normal in size. Bubble study does not show intracardiac shunting Left Atrium Normal in size Mitral Valve Structurally normal mitral valve. Aortic Valve Structurally normal aortic valve. No significant stenosis or regurgitation. Tricuspid Valve Insufficient TR jet to evaluate RVSP. Pulmonic Valve Not well visualized Pericardium Normal Aorta Normal in size IVC Appears to be normal CONCLUSIONS LV systolic function is normal with EF of 60-65% Bubble study does not show intracardiac shunting Grade 1 diastolic dysfunction Compared to prior echocardiogram from 2020, no significant changes are seen Jacob Del Toro MD (Electronically Signed) Final Date: 12 October 2023 15:14 S
--- NOTE | 2023-10-11 20:41 | USCV_ITS ---
Neisha Stratton Age: 78 Gender: F : 1945 Exam Date: 10/11/2023 21:00 Ordering Phys: Lonnie Lara MD Technologist: MARK Exam Location: [facility] – [place] Indication: TIA - right hemiparesis and slurred speech Risk Factors: TIA - right hemiparesis and slurred speech, now mostly resolved. Previous Vascular Surgery: None Right Brachial BP: 136 / 49 Left Brachial BP: / Right Left Velocity (cm/s) Spectral Plaque Velocity (cm/s) Spectral Plaque Syst/Diast Broadening Syst/Diast Broadening 102.50/7.70 Min None Prox CCA 78.80 / 11.10 Min None 76.30/ 11.50 Min None Mid CCA 67.50 / 11.10 None None 50.40/ 7.60 Mod [place] Distal CCA 61.20 / 7.40 Min [place] 88.50/ 16.60 Mod [place]on Prox ICA 87.40 / 18.10 Min [place] 96.20/ 19.10 Min Hetro Mid ICA 103.20/ 21.60 None Lavon 94.40/ 20.30 Min Homo Distal ICA 90.50 / 25.20 None Hetro Min Hetro ECA 83.80 Min Hetro 1.90 ICA/CCA 1.70 Antegrade Vertebral Antegrade 39.10/ 6.20 cm/s 30.20/ 4.90 cm/s Tri Subclavian Tri 92.10 66.90 FINDINGS Comparison: none available. No significant elevation of systolic or diastolic velocities. Waveforms are normal. Mixture of calcified and noncalcified plaque in the bifurcations. CONCLUSIONS Bilateral ICA stenosis less than 50%. Dr. Zaira Rios DO (Electronically Signed) Final Date: 12 October 2023 07:37 S
[2023-10-11] MEDS: enoxaparin 40 mg/0.4 mL Syringe SUBCUT (22:16)
[2023-10-11 22:28] LABS: Glucose Point of Care 100 mg/dL (70-110)
[2023-10-11] MEDS: atorvastatin 40 mg Tablet 20 MG PO (22:57)
[2023-10-11] MEDS: gemfibrozil 600 mg Tablet PO (22:58)
[2023-10-11] MEDS: gabapentin 300 mg Capsule PO (22:58)
[2023-10-12] VITALS (7 sets, daily range): BP systolic 93–163; BP diastolic 60–74; PULSE 55–80; RESP 15–18; TEMP 36.4–36.9; O2SAT 94–98
[2023-10-12 01:37] LABS: Glucose Point of Care 111 mg/dL (70-110)
[2023-10-12 03:10] LABS: Basophils % 0.2 %; Eosinophils # 0.1 10^3/uL (0.0-0.8); Eosinophils % 2.8 %; Hematocrit 33.3 % (36-47); Lymphocytes # 1.2 10^3/uL (0.8-4.8); Lymphocytes % 28.6 %; Mean Corpuscular HGB Conc 33.6 g/dL (30-55); Mean Corpuscular Hemoglobin 30.8 pg (27-33); Mean Corpuscular Volume 91.5 fl (85-98); Mean Platelet Volume 10.5 fL (7.4-10.4); Monocytes # 0.5 10^3/uL (0.2-0.9); Monocytes % 10.6 %; Neutrophils # 2.49 10^3/uL (1.8-7.7); Neutrophils % 57.3 %; Nucleated Red Blood Cells % 0 %; Platelet Count 206 10^3/cmm (157-399); Red Blood Count 3.64 10^6/uL (3.85-5.65); Red Cell Distribution Width 12.2 % (12.1-15.1); White Blood Count 4.34 10^3/uL (3.29-11.43)
[2023-10-12 03:30] LABS: Anion Gap 14.8 (5-19); Blood Urea Nitrogen 44 mg/dL (8-23); Calcium 9.4 mg/dL (8.5-10.5); Carbon Dioxide 21 mmol/L (22-29); Chloride 105 mmol/L (98-107); Creatinine Clr Calc Pharmacy 28.2298; Glucose 74 mg/dL (65-115); Magnesium 2.1 mg/dL (1.7-2.3); Osmolality Calculated 294 mOsm/kg (285-295); Potassium 3.8 mmol/L (3.5-5.1); Sodium 137 mmol/L (136-145)
[2023-10-12 03:33] LABS: Estmated Average Glucose 111; Hemoglobin A1C 5.5 % (4.0-6.0)
[2023-10-12 03:56] LABS: Chol HDL Ratio 5.46 mg/dL (0.0-4.40); Cholesterol 213 mg/dL (0-200); HDL Cholesterol 39 mg/dL (60-100); LDL Cholesterol Calculated 130 mg/dL (50-129); LDL HDL Ratio 3.33 RATIO (0.00-3.22); Triglycerides 221 mg/dL (0-150)
[2023-10-12 06:24] LABS: Glucose Point of Care 56 mg/dL (70-110)
--- NOTE | 2023-10-12 09:06 | PC.CHAP ---
Pastoral Care Encounter/Spiritual Assessment Type of Contact [] Declined behavioral medical director visit [] Patient/Family/Request visit [] Outpatient visit [] Follow-up visit [] Physician referral [] Code/Alert [x] Routine visit [] Staff referral [] Actively dying [] Patient sleeping [x] Family support [] [] Out of room [] Palliative care [] [] Receiving care in room [] Pre-surgical visit [] Trauma [] Long length of stay [] ICU visit [] Other: Relational/Emotional Strength [x] Patient feels connected with others/family/visitors/staff [] Distress [] Loneliness/isolation [] Abandonment Spirituality of Patient [x] Person of Alison [] Attends Hinduism of their Alison [x] Believes in Prayer [] Reads Bible or Rastafarian materials [] There are Spiritual issues to be addressed Assembler [employer] Interventions [x] Prayer [x] Active listening [] Non-anxious presence [x] Spiritual/emotional support [] Crisis/trauma care [] Spiritual counseling [] Bereavement support [] Provided bereavement packet [] Provided Bible/devotional materials [] Provided toy/stuffed animal, coloring book to patient or family member [] Provided Communion [] Anointing/[place] [] Salvation [x] Completed spiritual assessment [] Other: Impact on Illness or Injury [] Angry [] Fearful [] Anxious [] Often cries [] Exhaustion [] Unable to work [] Unable to attend jainism [] Unable to walk/stand [] Unable to read [] Unable to drive [] Unable to eat/drink [] Unable to sleep [] Unable to be with family [] Patient intubated [] Other: Summary Time spent with patient 5 min
[2023-10-12] MEDS: gemfibrozil 600 mg Tablet PO ×2 (09:44→20:13)
[2023-10-12] MEDS: clopidogrel 75 mg Tablet PO (09:44)
[2023-10-12] MEDS: isosorbide mononitrate ER 30 mg Tablet 120 MG PO (09:44)
[2023-10-12] MEDS: aspirin 81 mg EC Tablet PO (09:44)
[2023-10-12 11:23] LABS: Glucose Point of Care 132 mg/dL (70-110)
--- NOTE | 2023-10-12 11:40 | P.PN_ITS ---
Subjective 2 Subjective: No acute overnight events noted. Seen her at bedside, feels normal, symptoms resolved, no new complaints noted. Medications: Reviewed: Yes Vitals/I&O/Wt Last Vital Signs Temp 98.3 F 10/12/23 11:27 Pulse 63 10/12/23 11:27 Resp 15 10/12/23 11:27 BP 155/69 10/12/23 11:27 Pulse Ox 96 10/12/23 11:27 O2 Del Method Room Air 10/12/23 11:27 10/11/23 10/12/23 10/12/23 22:59 06:59 14:59 Intake Total 120 / 120 240 / 240 Balance 120 / 120 240 / 240 Weight last 48 hrs Weight 73.527 kg Weight 73.527 kg Weight 74.752 kg Weight 74.843 kg Physical Exam 2 Narrative: She is alert awake oriented x 3 not in acute distress Chest clear to auscultation bilaterally Abdomen soft nontender nondistended normal bowel sounds Cardiovascular normal heart sounds Extremities no edema Data 10/12/23 03:00 10/12/23 03:00 A&P Assessment and plan (1) Transient cerebral ischemia: (2) Leg edema: (3) Diabetes: (4) Chronic kidney disease: (5) Atrial fibrillation: Qualifiers: Atrial fibrillation type: persistent (not longstanding) Qualified Code(s): I48.19 - Other persistent atrial fibrillation (6) HTN (hypertension): Qualifiers: Hypertension type: essential hypertension Qualified Code(s): I10 - Essential (primary) hypertension Plan Neisha Stratton is a 78 year old female with past medical history significant for coronary artery disease with history of PCI w/DAVID to RCA in August 2020, hypertension, hyperlipidemia, bradycardia, atrial fibrillation not on anticoagulation due to history of bleeding tendency, hypertension, tobacco use disorder in remission, and type 2 diabetes mellitus who presents to the emergency department with sudden onset of weakness in her right upper/lower extremities and facial droop which resolved on arrival of EMS. 1. TIA- Continue DAPT with aspirin/Plavix Continue atorvastatin, increase dose to high intensity Neurochecks Continuous telemetry monitoring Allow permissive hypertension overnight holding home antihypertensives Hydralazine for SBP>220 mmHg or DBP>120 mmHg Follow MRI head without contrast and 2D echo. 2.Atrial fibrillation- She had an event monitor in July 2023 for 30 days and did not show any activities of atrial fibrillation She is not on any anticoagulation for the same Will follow-up MRI head without contrast and 2D echo, plan for anticoagulation after weighing the benefits and risks. DVT prophylaxis with subcutaneous Lovenox GI prophylaxis with tonics She is full code for now Will include carb consistent diet Will plan to discharge home in a.m. Monitor in the hospital for 24 hours post TIA Attestations 2 Medical Necessity Statement*: Changes continued hospitalization for less than 2 midnights for monitoring post TIA, plan to check MRI head without contrast and 2D echo Time Spent in Patient Care: 15 minutes Coding Level of Care Code Acute Code for Chg Fwd Diagnoses Transient cerebral ischemia G45.9 Leg edema R60.0 Diabetes E11.9 Chronic kidney disease N18.9 Persistent atrial fibrillation I48.19 Atrial fibrillation type: persistent (not longstanding) Essential hypertension I10 Hypertension type: essential hypertension Time Spent (min) 15
[2023-10-12 16:57] LABS: Glucose Point of Care 189 mg/dL (70-110)
[2023-10-12] MEDS: insulin lispro 100 unit/1 mL SUBCUT (17:25)
[2023-10-12] MEDS: latanoprost 0.005% Op Soln 2.5 mL Btl 1 DROP OPHTHALMIC (20:13)
[2023-10-12] MEDS: atorvastatin 40 mg Tablet 20 MG PO (20:13)
[2023-10-12] MEDS: COMBIGAN 1 EACH EYEAFF (20:14)
[2023-10-12] MEDS: gabapentin 300 mg Capsule PO (20:17)
[2023-10-12 20:34] LABS: Glucose Point of Care 92 mg/dL (70-110)
--- NOTE | 2023-10-12 20:41 | MR_ITS ---
WS: [id number] MRI HEAD WITHOUT CONTRAST TECHNIQUE: Sagittal T1, T2 axial, T2 axial FLAIR, axial and coronal T1 images, axial susceptibility w eighted imaging, axial diffusion weighted images, and coronal T2 images were obtained. CLINICAL INFORMATION: TIA symptoms w/ rt sided weakness, slurred speech COMPARISON: CT head 10/11/2023 FINDINGS: Tiny punctate focus of faint partially restricted diffusion in the RIGHT parasagittal parietal lobe m ay represent a tiny focus of acute to subacute ischemia versus artifact. Otherwise no evidence of acu te ischemia. Moderate small vessel changes. Moderate parenchymal volume loss. Normal posterior fossa. A few tiny chronic lacunar infarcts in the RIGHT or LEFT cerebellum. Normal vascular flow voids at t he skull base. No extra-axial fluid collections. No evidence of mass or mass effect. Paranasal sinuses are well aerated. Mastoid air cells are well aerated. Normal optic chiasm and pitui tary infundibulum. Moderate symmetric atrophy temporal lobes and hippocampal formations. Normal optic chiasm and pituitary infundibulum. No hemosiderin on the susceptibly weighted images. IMPRESSION: 1. Tiny punctate focus of partially restricted diffusion in the RIGHT parasagittal parietal lobe may present a tiny focus of acute to subacute ischemia versus artifact. Otherwise no evidence of acute i schemia. 2. Moderate small vessel changes with moderate parenchymal volume loss. 3. Few tiny chronic lacunar infarcts in the cerebellum. 4. Moderate symmetric atrophy temporal lobes and hippocampal formations.
[2023-10-12] MEDS: enoxaparin 30 mg/0.3 mL Syringe SUBCUT (22:50)
[2023-10-13 03:38] VITALS: BP 119/69; PULSE 61; RESP 18; TEMP 36.6; O2SAT 97
[2023-10-13 06:26] LABS: Glucose Point of Care 98 mg/dL (70-110)
[2023-10-13 07:33] VITALS: BP 159/70; PULSE 57; RESP 20; TEMP 36.6; O2SAT 98
[2023-10-13 08:00] VITALS: BP 159/70; PULSE 57; RESP 20; TEMP 36.6
[2023-10-13] MEDS: isosorbide mononitrate ER 30 mg Tablet 120 MG PO (08:09)
[2023-10-13] MEDS: clopidogrel 75 mg Tablet PO (08:09)
[2023-10-13] MEDS: aspirin 81 mg EC Tablet PO (08:11)
[2023-10-13] MEDS: gemfibrozil 600 mg Tablet PO (08:11)
[2023-10-13] MEDS: gabapentin 300 mg Capsule PO (08:16)
--- NOTE | 2023-10-13 09:47 | P.DS_ITS ---
Discharge Providers Date of Admission: 10/11/23 19:52 Date of Discharge: October 13, 2023 Attending Provider at Admission: Lonnie Lara MD Attending Provider at Discharge: Bonny Lanier MD Primary Care Provider: Mary Lou Hayes APN Diagnoses at Discharge Discharge Diagnosis (1) Transient cerebral ischemia: Status: Acute (2) Leg edema: Status: Acute (3) Diabetes: Status: Acute (4) Chronic kidney disease: Status: Chronic (5) Atrial fibrillation: Status: Acute Qualifiers: Atrial fibrillation type: persistent (not longstanding) Qualified Code(s): I48.19 - Other persistent atrial fibrillation Permanent problem details: Pt has bleeding tendency - not on OAC (6) HTN (hypertension): Status: Acute Qualifiers: Hypertension type: essential hypertension Qualified Code(s): I10 - Essential (primary) hypertension Reason for Visit Reason for Visit: stroke-like symptoms Brief History: 78 year old female with past medical history significant for coronary artery disease with history of PCI w/DAVID to RCA in August 2020, hypertension, hyperlipidemia, bradycardia, atrial fibrillation not on anticoagulation due to history of bleeding tendency, hypertension, tobacco use disorder in remission, and type 2 diabetes mellitus who presents to the emergency department with sudden onset of weakness in her right upper/lower extremities that occurred around 1700 today. The event was witnessed by her granddaughter who is bedside. She also provides some of the history as well. She notes she was having hard time moving extremities. She endorses associated slurred speech. Granddaughter also notes facial droop. She reports symptoms lasted for about 10 minutes. EMS was called and by the time EMS evaluated patient's neurological state was back to baseline. She was found to be markedly hypertensive at that time. Patient denies other alleviating or aggravating factors. She denies any prior history of transient ischemic attacks or strokes. She has a history of paroxysmal atrial fibrillation. In the ED, EKG was notable for sinus rhythm. She underwent a 30 day event monitor read in July 2023 which showed no atrial fibrillation. Hospital Course Hospital Course 78 year old female with past medical history significant for coronary artery disease with history of PCI w/DAVID to RCA in August 2020, hypertension, hyperlipidemia, bradycardia, atrial fibrillation not on anticoagulation due to history of bleeding tendency, hypertension, tobacco use disorder in remission, and type 2 diabetes mellitus who presents to the emergency department with sudden onset of weakness in her right upper/lower extremities and facial droop which resolved on arrival of EMS. Symptoms consistent with TIA. She was monitored on telemetry for 24 hours, no acute events noted. She had a 2D echo done which showed LV systolic function is normal with EF of 60-65% Bubble study does not show intracardiac shunting Grade 1 diastolic dysfunction Compared to prior echocardiogram from 2020, no significant changes are seen MRI head without contrast showed 1. Tiny punctate focus of partially restricted diffusion in the RIGHT parasagittal parietal lobe may present a tiny focus of acute to subacute ischemia versus artifact. Otherwise no evidence of acute ischemia. 2. Moderate small vessel changes with moderate parenchymal volume loss. 3. Few tiny chronic lacunar infarcts in the cerebellum. 4. Moderate symmetric atrophy temporal lobes and hippocampal formations. She is doing better and is ready to be discharged home. She will continue to take p.o. aspirin 81 mg daily Plavix 75 mg daily, and Lipitor 20 mg daily. Follow-up with PCP in 1 week. Given history of atrial fibrillation, but recent event monitor for 30 days did not show any episodes of atrial fibrillation, and 2D echo also did not show any activity consistent with A-fib, will hold on further Eliquis for now. Physical Exam Narrative: She is alert awake oriented x 3 not in acute distress Chest clear to auscultation bilaterally Abdomen soft nontender nondistended normal bowel sounds Cardiovascular normal heart sounds Extremities no edema Discharge Data Studies Completed and Pending Completed Studies During Hospitalization Category Date Time Status CT head wo con* [id number] Stat Cat Scan 10/11/23 18:26 Completed XR chest 1V portable [id number] Stat Exams 10/11/23 18:26 Completed MR head wo con* [id number] Routine MRI 10/12/23 20:41 Completed CV. echo w/w bubble cont [id number] Routine Ultrasound 10/11/23 20:41 Completed US carotid duplex bilateral [CV carotid duplex BI* Ultrasound 10/11/23 20:41 Completed [id number]] Routine Radiology Impressions Chest X-Ray 10/11/23 18:26 IMPRESSION: 1. No acute cardiopulmonary process. 2. Incidental/nonacute findings are listed in the report. Head CT 10/11/23 18:26 IMPRESSION: 1. No acute abnormality of the brain. 2. Mild atrophy of the brain parenchyma. 3. Mild chronic white matter microangiopathic change. 4. Incidental/nonacute findings are listed in the report. Laboratory Results WBC 4.34 10^3/uL (3.29-11.43) 10/12/23 03:00 RBC 3.64 10^6/uL (3.85-5.65) L 10/12/23 03:00 Hgb 11.20 g/dL (11.27-16.99) L 10/12/23 03:00 Hct 33.3 % (36-47) L 10/12/23 03:00 MCV 91.5 fl (85-98) 10/12/23 03:00 MCH 30.8 pg (27-33) 10/12/23 03:00 MCHC 33.6 g/dL (30-55) 10/12/23 03:00 RDW 12.2 % (12.1-15.1) 10/12/23 03:00 Plt Count 206 10^3/cmm (157-399) 10/12/23 03:00 MPV 10.5 fL (7.4-10.4) H 10/12/23 03:00 Neut % (Auto) 57.3 % 10/12/23 03:00 Lymph % (Auto) 28.6 % 10/12/23 03:00 [place] % (Auto) 10.6 % 10/12/23 03:00 Eos % (Auto) 2.8 % 10/12/23 03:00 Baso % (Auto) 0.2 % 10/12/23 03:00 Neut # (Auto) 2.49 10^3/uL (1.8-7.7) 10/12/23 03:00 Lymph # (Auto) 1.2 10^3/uL (0.8-4.8) 10/12/23 03:00 [place] # (Auto) 0.5 10^3/uL (0.2-0.9) 10/12/23 03:00 Eos # (Auto) 0.1 10^3/uL (0.0-0.8) 10/12/23 03:00 Baso # (Auto) 0.0 10^3/uL (0.0-0.1) 10/12/23 03:00 Nucleated RBC % (auto) 0 % 10/12/23 03:00 Nucleated RBCs # 0.0 /100WBC 10/12/23 03:00 PT 13.70 SECONDS (12.1-14.9) 10/11/23 18:56 INR 1.02 (0.8-1.2) 10/11/23 18:56 Sodium 137 mmol/L (136-145) 10/12/23 03:00 Potassium 3.8 mmol/L (3.5-5.1) 10/12/23 03:00 Chloride 105 mmol/L (98-107) 10/12/23 03:00 Carbon Dioxide 21 mmol/L (22-29) L 10/12/23 03:00 Anion Gap 14.8 (5-19) 10/12/23 03:00 BUN 44 mg/dL (8-23) H 10/12/23 03:00 Creatinine 1.6 mg/dL (0.5-0.9) H 10/12/23 03:00 GFR Calculation Not Reportable 10/12/23 03:00 Glucose 74 mg/dL (65-115) 10/12/23 03:00 POC Glucose 98 mg/dL (70-110) 10/13/23 06:17 Estimat Average Glucose 111 10/12/23 03:00 Hemoglobin A1c 5.5 % (4.0-6.0) 10/12/23 03:00 Calculated Osmolality 294 mOsm/kg (285-295) 10/12/23 03:00 Calcium 9.4 mg/dL (8.5-10.5) 10/12/23 03:00 Magnesium 2.1 mg/dL (1.7-2.3) 10/12/23 03:00 Total Bilirubin 0.2 mg/dL (0.15-1.2) 10/11/23 18:56 AST 21 U/L (0-32) 10/11/23 18:56 ALT 20 U/L (0-33) 10/11/23 18:56 Alkaline Phosphatase 55 U/L (35-105) 10/11/23 18:56 Total Protein 7.4 g/dL (6.6-8.7) 10/11/23 18:56 Albumin 4.6 g/dL (3.5-5.2) 10/11/23 18:56 Globulin 2.8 g/dL (1.3-4.6) 10/11/23 18:56 Triglycerides 221 mg/dL (0-150) H 10/12/23 03:00 Cholesterol 213 mg/dL (0-200) H 10/12/23 03:00 LDL Cholesterol, Calc 130 mg/dL (50-129) H 10/12/23 03:00 HDL Cholesterol 39 mg/dL (60-100) L 10/12/23 03:00 LDL/HDL Ratio 3.33 RATIO (0.00-3.22) H 10/12/23 03:00 Cholesterol/HDL Ratio 5.46 mg/dL (0.0-4.40) H 10/12/23 03:00 Vitals Last Vital Signs Temp 97.8 F 10/13/23 07:33 Pulse 57 L 10/13/23 07:33 Resp 20 H 10/13/23 07:33 BP 159/70 10/13/23 07:33 Pulse Ox 98 10/13/23 07:33 O2 Del Method Room Air 10/13/23 07:33 Discharge Plan Discharge Patient Disposition: Home Condition: Stable Prescriptions: Continued multivitamin Tablet 1 tab PO DAILY omega 7-fps-ecw-fish oil [Fish Oil] 1,000 mg (120 mg-180 mg) capsule 1 cap PO DAILY Ozempic 0.25 mg or 0.5 mg (2 mg/3 mL) pen injector 0.5 mg SUBCUT Q7D Rx Instructions: ON SUNDAY aspirin [Adult Aspirin Regimen] 81 mg tablet,delayed release (DR/EC) 81 mg PO DAILY Qty: 90 1RF isosorbide mononitrate 30 mg tablet extended release 24 hr 120 mg PO DAILY Qty: 360 3RF latanoprost 0.005 % drops 1 drp ophthalmic (eye) BEDTIME glipizide 10 mg tablet extended release 24hr 10 mg PO BID gemfibrozil 600 mg tablet 600 mg PO BID gabapentin 300 mg capsule 300 mg PO BID PRN (Reason: Pain) Rx Instructions: can take up to 5x a day brimonidine-timolol [Combigan] 0.2-0.5 % drops 1 drp ophthalmic (eye) BID atorvastatin 20 mg tablet 20 mg PO QPM clopidogrel 75 mg tablet 75 mg PO DAILY chlorthalidone 25 mg tablet 25 mg PO DAILY amlodipine 10 mg tablet 10 mg PO DAILY furosemide 20 mg tablet 20 mg PO DAILY PRN (Reason: Edema) vitamin O59-eutzn acid 0.5-1 mg Tablet 1 tab PO DAILY losartan 100 mg tablet 100 mg PO DAILY potassium chloride 8 mEq capsule, extended release 8 meq PO DAILY Held Janumet XR 100-1,000 mg tablet, ER multiphase 24 hr 1 tab PO DAILY Hold Instructions: Resume on 10/30/23. since HbA1c is 5.5, do not need this medication. Discharge Orders: Discharge Order (Routine); Ordered 10/13/23 Ordered By: Bonny Lanier Referrals: Tito Rice MD [Physician] - (We have notified your physician's clinic of the need for a follow-up appointment to be scheduled. If you have not heard from them within the next 2 business days, please call them directly. ) Mary Lou Hayes APN [Primary Care Provider] - 10/22/23 2:40 pm Discharge Diet: Diabetic Discharge Activity: Increase activity as tolerated Patient Instructions: Opioid Safety Activity Restrictions/Additional Instructions: follow up PCP in 1 week Discharge Attestations Time Spent in Discharge Care*: less than 30 min Quality Metrics Clinical Quality Measures [ No reported AMI, CVA or VTE this stay] Coding Level of Care Code Acute Code for Chg Fwd Diagnoses Transient cerebral ischemia G45.9 Leg edema R60.0 Diabetes E11.9 Chronic kidney disease N18.9 Persistent atrial fibrillation I48.19 Atrial fibrillation type: persistent (not longstanding) Essential hypertension I10 Hypertension type: essential hypertension Time Spent (min) 15
[2023-10-13 11:10] VITALS: BP 159/70; PULSE 57; RESP 17; TEMP 36.6; O2SAT 98
== END 2023-10-13 11:12 | disposition home or self-care (01) ==
LOC: ER 19:50 → MEDSURG 19:53
PROVIDERS: Admitting Provider Internal Medicine; Emergency Provider Emergency Medicine; PCP Nurse Practitioner Family; Visit Provider Internal Medicine
DX: G45.9 Transient cerebral ischemic attack, unspecified (principal); R60.0 Localized edema; E11.22 Type 2 diabetes mellitus with diabetic chronic kidney disease; I12.9 Hypertensive chronic kidney disease with stage 1 through stage 4 chronic kidney disease, or unspecified chronic kidney disease; N18.9 Chronic kidney disease, unspecified; I48.19 Other persistent atrial fibrillation; I25.10 Atherosclerotic heart disease of native coronary artery without angina pectoris; E78.5 Hyperlipidemia, unspecified; Z87.891 Personal history of nicotine dependence
CPT/HCPCS: 36415; 36416; 70450; 70551; 71045; 80048; 80053; 80061; 82962; 83036; 83735; 85025; 85610; 93005; 93880; 96372; 99285; C8929; G0378; J1650; J1815

== ENCOUNTER → 2023-10-15 09:25 | Outpatient (BNVA) | payer MEDICARE, SELFPAY | PROVIDERS: PCP Nurse Practitioner Family; Visit Provider Nurse Practitioner | DX: E11.9 Type 2 diabetes mellitus without complications (principal) | CPT/HCPCS: 81000 ==

== ENCOUNTER → 2023-11-01 11:53 | Outpatient (BNVA) | payer MEDICARE, SELFPAY | PROVIDERS: PCP Nurse Practitioner Family; Referring Provider Nurse Practitioner Family; Visit Provider Psychiatry & Neurology Neurology | DX: G45.9 Transient cerebral ischemic attack, unspecified (principal); I48.91 Unspecified atrial fibrillation | CPT/HCPCS: 99203 ==

== ENCOUNTER → 2023-11-05 08:21 | Outpatient (BNVA) | payer MEDICARE, SELFPAY | PROVIDERS: PCP Nurse Practitioner Family; Visit Provider Nurse Practitioner | DX: E11.9 Type 2 diabetes mellitus without complications (principal); D64.9 Anemia, unspecified; I10 Essential (primary) hypertension | CPT/HCPCS: 80048; 83550 ==

== ENCOUNTER → 2023-11-15 08:57 | Outpatient (BNVA) | payer MEDICARE, SELFPAY | PROVIDERS: PCP Nurse Practitioner Family; Visit Provider Nurse Practitioner Family | DX: I48.19 Other persistent atrial fibrillation (principal) | CPT/HCPCS: 99213 ==

== ENCOUNTER → 2024-01-10 11:00 | Outpatient (BNVA) | payer MEDICARE, SELFPAY | PROVIDERS: PCP Nurse Practitioner; Visit Provider Internal Medicine Cardiovascular Disease | DX: I48.19 Other persistent atrial fibrillation (principal); Z79.01 Long term (current) use of anticoagulants; I25.118 Atherosclerotic heart disease of native coronary artery with other forms of angina pectoris; E78.5 Hyperlipidemia, unspecified; I12.9 Hypertensive chronic kidney disease with stage 1 through stage 4 chronic kidney disease, or unspecified chronic kidney disease; N18.9 Chronic kidney disease, unspecified | CPT/HCPCS: 99214 ==

== ENCOUNTER → 2024-01-23 09:19 | Outpatient (BNVA) | payer MEDICARE, SELFPAY | PROVIDERS: PCP Nurse Practitioner; Visit Provider Nurse Practitioner | DX: E11.40 Type 2 diabetes mellitus with diabetic neuropathy, unspecified (principal); I10 Essential (primary) hypertension; I25.118 Atherosclerotic heart disease of native coronary artery with other forms of angina pectoris | CPT/HCPCS: 80053; 80061; 82607; 83036; 85025 ==

== ENCOUNTER → 2024-04-09 08:17 | Outpatient (BNVA) | payer MEDICARE, SELFPAY | PROVIDERS: PCP Nurse Practitioner; Visit Provider Nurse Practitioner | DX: E11.40 Type 2 diabetes mellitus with diabetic neuropathy, unspecified | CPT/HCPCS: 80053; 82043; 83036 ==

== ENCOUNTER → 2024-04-22 10:09 | Outpatient (BNVA) | payer MEDICARE, SELFPAY | PROVIDERS: PCP Nurse Practitioner; Visit Provider Nurse Practitioner | DX: R05.9 Cough, unspecified (principal) | CPT/HCPCS: 71046 ==

== ENCOUNTER 2024-05-13 10:45 | Outpatient (CLI) | payer MEDICARE, SELFPAY ==
--- NOTE | 2024-05-13 11:00 | MM_ITS ---
WS: [id number] BILATERAL 3D TOMOSYNTHESIS DIGITAL SCREENING MAMMOGRAPHY WITH CAD CLINICAL INFORMATION: SCREENING HISTORY: Screening mammogram. No current complaints. COMPARISON: 2022 TECHNIQUE: Bilateral CC and MLO views. FINDINGS: The breasts are composed of heterogeneous fibroglandular density tissue, which can limit the detectio n of small underlying mass lesions. New small ovoid nodular density mid depth RIGHT breast in the upp er outer quadrants. Recommend further evaluation with a RIGHT breast diagnostic mammography and ultra sound. Unremarkable LEFT breast. Incidental punctate and lucent centered calcifications. Lucent centered calcifications. Vascular calc ifications. MM/MM [facility] tomosynthesis [id number] IMPRESSION: DENSITY: The breasts are heterogeneously dense, which may obscure small masses. BI-RADS: 0 - Incomplete: Need additional imaging evaluation FOLLOW UP: Need Additional Imaging Recommend RIGHT breast diagnostic mammography and ultrasound in further evaluat ion.
== END 2024-05-13 10:46 | disposition home or self-care (01) ==
LOC: MOBLMAM 11:06
PROVIDERS: PCP Nurse Practitioner; Visit Provider Nurse Practitioner
DX: Z12.31 Encounter for screening mammogram for malignant neoplasm of breast (principal); R92.333 Mammographic heterogeneous density, bilateral breasts; N63.11 Unspecified lump in the right breast, upper outer quadrant; R92.1 Mammographic calcification found on diagnostic imaging of breast; E11.40 Type 2 diabetes mellitus with diabetic neuropathy, unspecified
CPT/HCPCS: 77063; 77067; 81000

== ENCOUNTER 2024-05-14 14:51 | Emergency (ER) | payer MEDICARE, SELFPAY ==
[2024-05-14] VITALS (8 sets, daily range): BP systolic 138–173; BP diastolic 53–82; PULSE 58–73; RESP 16–18; TEMP 36.7; O2SAT 94–99; BMI 28.6
--- NOTE | 2024-05-14 14:54 | XR_ITS ---
WS: [id number] Portable AP upright chest, 05/14/2024 Clinical Data: ams Comparison: Two-view chest, 04/22/2024 Findings: No nodules, masses or effusions are seen. The heart is normal. The pulmonary vascularity is not increased. No pneumonia or pneumothorax is seen. The aortic arch and descending thoracic aorta s how mild calcification and tortuosity. 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 XR/XR chest 1V portable [id number] Impression: Atherosclerosis.
[2024-05-14 15:53] LABS: Basophils % 0.2 %; Eosinophils # 0.1 10^3/uL (0.0-0.8); Eosinophils % 2.4 %; Hematocrit 35.1 % (36-47); Lymphocytes # 1.2 10^3/uL (0.8-4.8); Mean Corpuscular HGB Conc 34.2 g/dL (30-55); Mean Corpuscular Hemoglobin 31.2 pg (27-33); Mean Corpuscular Volume 91.2 fl (85-98); Mean Platelet Volume 10.4 fL (7.4-10.4); Monocytes # 0.4 10^3/uL (0.2-0.9); Monocytes % 8.8 %; Neutrophils # 2.54 10^3/uL (1.8-7.7); Neutrophils % 60.1 %; Nucleated Red Blood Cells % 0 %; Platelet Count 224 10^3/cmm (157-399); Red Blood Count 3.85 10^6/uL (3.85-5.65); White Blood Count 4.22 10^3/uL (3.29-11.43)
[2024-05-14 16:20] LABS: Alanine Aminotransferase 18 U/L (0-33); Albumin Level 4.7 g/dL (3.5-5.2); Alkaline Phosphatase 64 U/L (35-105); Anion Gap 16.2 (5-19); Aspartate Amino Transferase 24 U/L (0-32); Blood Urea Nitrogen 50 mg/dL (8-23); Calcium 9.5 mg/dL (8.5-10.5); Carbon Dioxide 33 mmol/L (22-29); Chloride 95 mmol/L (98-107); Creatinine Clr Calc Pharmacy 20.6614; Globulin 3.1 g/dL (1.3-4.6); Glucose 172 mg/dL (65-115); Lipase 44 U/L (13-60); Magnesium 2.7 mg/dL (1.7-2.3); Osmolality Calculated 305 mOsm/kg (285-295); Potassium 5.2 mmol/L (3.5-5.1); Sodium 139 mmol/L (136-145); Thyroid Stimulating Hormone 0.59 uIU/mL (0.27-4.20); Total Bilirubin 0.4 mg/dL (0.15-1.2); Total Protein 7.8 g/dL (6.6-8.7)
--- NOTE | 2024-05-14 17:11 | ECG_ITS ---
[facility]24[facility]14 Pat Name: Neisha Stratton Department: Room: Gender: Female Senior Consulting Manager: : 1945 Requested By: Almas Potts Order Number: [id number] Reading MD: Edson Carrillo M.D. Measurements Intervals [place] Rate: 62 P: 77 ND: 159 QRS: 78 QRSD: 91 T: 74 QT: 373 QTc: 382 Interpretive Statements SINUS RHYTHM NONSPECIFIC ST & T-WAVE ABNORMALITY Compared to ECG 10/11/2023 18:52:34 No significant changes Electronically Signed On 05-15-2024 21:15:14 MACHINE PACKAGER by Edson Carrillo M.D. [email or web address]
--- NOTE | 2024-05-14 18:32 | CTR_ITS ---
PROCEDURE INFORMATION: Exam: CT Head Without Contrast Exam date and time: 05/14/2024 8:01 PM Age: 78 years old Clinical indication: Altered mental status/memory loss; Confusion or disorientation; Additional info: Encephalopathy, altered mental status TECHNIQUE: Imaging protocol: Computed tomography of the head without contrast. Radiation optimization: All CT scans at this facility use at least one of these dose optimization techniques: automated exposure control; mA and/or kV adjustment per patient size (includes targeted exams where dose is matched to clinical indication); or iterative reconstruction. COMPARISON: MR head wo con* [id number] 10/12/2023 10:03 AM RADIATION DOSE METRICS: Total DLP (mGy-cm): 1033.18 FINDINGS: Brain: There is aufy-fz-xxsjslef cerebral atrophy. There are tjdh-zq-[id number] deep white matter microangiopathic ischemic changes. No acute hemorrhage is identified. No definitive mass effect. New moderate area of hypodensity in the deep periventricular white matter anteriorly, particularly on the left. Cerebral ventricles: Moderately dilated ventricles secondary to atrophy. Paranasal sinuses: The paranasal sinuses are clear. Mastoid air cells: The mastoid air cells are clear. Bones: No acute osseous abnormalities are seen. Soft tissues: Unremarkable. CT/CT head wo con* [id number] IMPRESSION: 1. New moderate area of hypodensity in the deep periventricular white matter anteriorly, particularly on the left. Recommend further evaluation with contrast-enhanced MRI of the brain for this nonspecific finding. 2. Otherwise stable CT appearance of the brain compared to 10/11/2023 without evidence of acute intracranial pathology.
--- NOTE | 2024-05-14 19:01 | PC.NURSE ---
This nurse assumed care from Jennifer ANGLIN at shift change.
--- NOTE | 2024-05-14 19:01 | W.ED.AMS ---
HPI - Altered Mental Status General: Chief Complaint: Altered Mental Status Stated Complaint: confusion, wt loss, unable to urinate Time Seen by Provider: 05/14/24 18:28 History of Present Illness: 78-year-old female with history of atrial fibrillation who just recently started on Eliquis 2.5 mg twice a day as she has some renal insufficiency that is chronic, hypertension, neuropathy, coronary artery disease, hyperlipidemia and diabetes who presents to the emergency room with confusion and forgetfulness over the last week or 2. She had seen her primary who sent her to the emergency room requesting workup. She has no focal motor deficits and she is awake and alert. Primarily seems to be a change in her personality and some slight confusion with forgetfulness of appointments etc. No fevers. No cough. No abdominal pain. No nausea or vomiting. No chest pain. Related Data Home Medications Medication Instructions Recorded Confirmed brimonidine 0.2 %-timolol 0.5 % 1 drp ophthalmic (eye) BID 08/27/20 04/22/24 eye drops (Combigan) gabapentin 300 mg capsule 300 mg PO BID PRN Pain 08/27/20 04/22/24 latanoprost 0.005 % eye drops 1 drp ophthalmic (eye) BEDTIME 08/27/20 04/22/24 multivitamin 1 tab PO DAILY 12/14/21 04/22/24 omega 8-eqx-wic-fish oil 1,000 mg 1 cap PO DAILY 12/14/21 04/22/24 (120 mg-180 mg) capsule (Fish Oil) potassium chloride 8 mEq 8 meq PO DAILY 10/12/23 04/22/24 capsule,extended release vitamin B12 0.5 mg-folic acid 1 mg 1 tab PO DAILY 10/12/23 04/22/24 tablet Previous Rx's Medication Instructions Recorded isosorbide mononitrate 30 mg 120 mg (4 x 30 mg) PO DAILY #360 10/23/23 tablet,extended release 24 hr tabs apixaban 2.5 mg tablet 2.5 mg PO BID #180 tabs 11/15/23 hydralazine 25 mg tablet 25 mg PO BID #180 tabs 01/30/24 furosemide 20 mg tablet See Rx Instructions .Route 02/12/24 .COMPLEX #30 tabs clopidogrel 75 mg tablet See Rx Instructions .Route 03/11/24 .COMPLEX #90 tabs amlodipine 10 mg tablet 10 mg PO DAILY #30 tabs 04/09/24 atorvastatin 40 mg tablet 40 mg PO QPM #30 tabs 04/09/24 azelastine 205.5 mcg (0.15 %) 1 spray intranasal BID #30 mL 04/09/24 nasal spray (Astepro Allergy) losartan 100 mg tablet 100 mg PO DAILY #30 tabs 04/09/24 magnesium oxide 400 mg PO BID #60 caps 04/09/24 tirzepatide 5 mg/0.5 mL 5 mg (0.5 mL) SUBCUT .weekly #2 mL 04/09/24 subcutaneous pen injector (Mounjaro) dextromethorphan HBr 10 mg/5 mL 10 mg (5 mL) PO Q6H PRN cough #118 04/22/24 oral liquid (Scot-Tussin Diabetes) mL prednisone 10 mg tablet 10 mg PO DAILY #7 tabs 04/22/24 Allergies Allergy/AdvReac Type Severity Reaction Status Date / Time naproxen [From Aleve] Allergy Unknown Verified 05/14/24 13:22 Review of Systems Narrative: Constitutional symptoms: Negative except as documented in HPI. Skin symptoms: Negative except as documented in HPI. Eye symptoms: Negative except as documented in HPI. ENMT symptoms: Negative except as documented in HPI. Respiratory symptoms: Negative except as documented in HPI. Cardiovascular symptoms: Negative except as documented in HPI. Gastrointestinal symptoms: Negative except as documented in HPI. Genitourinary symptoms: Negative except as documented in HPI. Musculoskeletal symptoms: Negative except as documented in HPI. Neurologic symptoms: Negative except as documented in HPI. Psychiatric symptoms: Negative except as documented in HPI. Endocrine symptoms: Negative except as documented in HPI. PFSH ED PFSH: Medical History Atrial fibrillation HTN (hypertension) Diabetes Chronic kidney disease Atherosclerosis of coronary artery of [place] heart without angina pectoris Obesity Hyperlipidemia LDL goal <100 Surgical History Hx of heart artery stent x 1 S/P LASIK surgery Hx of tubal ligation Family History Father CAD (coronary artery disease), Onset Age: 70 [place] Mother Cancer Grandmother Cancer Diabetes Denies family history of Clotting disorder Dementia Chronic kidney disease (CKD) Suicide Anesthesia complication Bleeding disorder Lung disease Stroke Social History Smoking and tobacco/nicotine status: never used tobacco/nicotine Alcohol intake: never Substance/Drug Use: never Adopted: No Caregiver/support person: No Lives independently: Yes Household members: spouse Housing: House Marital status: Number of children: 4 service: No Current occupational status: retired Do you think of yourself as: Straight/Heterosexual Current gender identity: Female Physical Exam Narrative: General: Alert, no acute distress. Skin: Warm, dry. Head: Normocephalic, atraumatic. Neck: Supple, trachea midline. Eye: Extraocular movements are intact. Ears, nose, mouth and throat: mucosa moist. Cardiovascular: Regular, Normal peripheral perfusion. Respiratory: Lungs are clear to auscultation, respirations are non-labored, breath sounds are equal, Symmetrical chest wall expansion. Gastrointestinal: Soft, Nontender, Non distended Musculoskeletal: Normal ROM, no deformity. Neurological: Alert and oriented, No focal neurological deficit observed. Psychiatric: Cooperative. does seem to have some forgetfulness. Cannot remember medications etc. Course Vital Signs: Vital signs: Vital Signs Temperature 98.0 F 05/14/24 15:22 Pulse Rate 67 05/14/24 20:45 Respiratory Rate 18 05/14/24 20:45 Blood Pressure 143/76 05/14/24 21:05 Pulse Oximetry 94 05/14/24 21:05 Oxygen Delivery Me thod Room Air 05/14/24 20:45 MDM - Altered Mental Status Medical Decision Making Medical decision making: Differential diagnosis for patient with focal neurologic deficit(s) includes but not limited to and based on the above HPI, review of systems and physical exam: ischemic stroke, hemorrhagic stroke and embolic stroke secondary to atrial fibrillation), TIA, Barnhart's palsey, metabolic encephalopathy with previous stroke. Orders placed to evaluate differential diagnosis based on the above differential, HPI and physical exam Lab Review: Laboratory results were reviewed and interpreted by myself the emergency room physician. No leukocytosis. No anemia. Patient does have an acute worsening of her chronic kidney disease with a BUN and creatinine of 50 and 2.2. She is received some fluids here in the emergency room. This may be contributing to her symptoms. No urinary tract infection CT of the head without contrast: There is an area of hypodensity in the deep periventricular white matter anteriorly particularly on the left and MRI is recommended. This was reviewed and interpreted by myself the emergency room physician. I also reviewed the radiology report. Chest x-ray: No acute process. No infiltrate. No pneumothorax. This was reviewed and interpreted by myself the emergency room physician. I also reviewed the radiology report. Consultation: I spoke with Dr. Rice who evaluated the patient in the emergency room. She is on appropriate prophylactic therapy at this point. She is on Plavix, Eliquis and a statin. The Eliquis was just started recently. He feels the MRI and carotid ultrasounds can be done as an outpatient I reviewed the patient's medical record. Reexamination: Patient remained stable. No increased work of breathing. No altered mental status. No focal motor deficits. Assessment and plan: Cerebrovascular accident Acute on chronic renal insufficiency ?Normal saline bolus in the emergency room. Neurology consultation. Outpatient continued workup. - Discharged home - Discussed findings and plan with patient. Answered any questions. - All laboratory values were reviewed and interpreted personally by myself, the ER physician - All imaging was reviewed and interpreted personally by myself, the ER physician. - Evaluation and treatment of this problem were appropriate in the emergency setting Lab Data 05/14/24 15:29 05/14/24 15:29 Radiology Impressions Chest X-Ray 05/14/24 14:54 Impression: Atherosclerosis. Head CT 05/14/24 18:32 IMPRESSION: 1. New moderate area of hypodensity in the deep periventricular white matter anteriorly, particularly on the left. Recommend further evaluation with contrast-enhanced MRI of the brain for this nonspecific finding. 2. Otherwise stable CT appearance of the brain compared to 10/11/2023 without evidence of acute intracranial pathology. Laboratory Results WBC 4.22 10^3/uL (3.29-11.43) 05/14/24 15: RBC 3.85 10^6/uL (3.85-5.65) 05/14/24 15: Hgb 12.00 g/dL (11.27-16.99) 05/14/24 15: Hct 35.1 % (36-47) L 05/14/24 15: MCV 91.2 fl (85-98) 05/14/24 15: MCH 31.2 pg (27-33) 05/14/24 15: MCHC 34.2 g/dL (30-55) 05/14/24 15: RDW 12.0 % (12.1-15.1) L 05/14/24 15: Plt Count 224 10^3/cmm (157-399) 05/14/24 15: MPV 10.4 fL (7.4-10.4) 05/14/24 15: Neut % (Auto) 60.1 % 05/14/24 15: Lymph % (Auto) 28.0 % 05/14/24: [place] % (Auto) 8.8 % 05/14/24: Eos % (Auto) 2.4 % 05/14/24: Baso % (Auto) 0.2 % 05/14/24 Neut # (Auto) 2.54 10^3/uL (1.8-7.7) 05/14/24: Lymph # (Auto) 1.2 10^3/uL (0.8-4.8) 05/14/24: [place] # (Auto) 0.4 10^3/uL (0.2-0.9) 05/14/24: Eos # (Auto) 0.1 10^3/uL (0.0-0.8) 05/14/24: Baso # (Auto) 0.0 10^3/uL (0.0-0.1) 05/14/24: Nucleated RBC % (auto) 0 % 05/14/24: Nucleated RBCs # 0.0 /100WBC 05/14/24 15: Sodium 139 mmol/L (136-145) 05/14/24 15: Potassium 5.2 mmol/L (3.5-5.1) H 05/14/24 15: Chloride 95 mmol/L (98-107) L 05/14/24 15: Carbon Dioxide 33 mmol/L (22-29) H 05/14/24 15: Anion Gap 16.2 (5-19) 05/14/24 15: BUN 50 mg/dL (8-23) H 05/14/24 15: Creatinine 2.2 mg/dL (0.5-0.9) H 05/14/24 15: GFR Calculation Not Reportable 05/14/24 15: Glucose 172 mg/dL (65-115) H 05/14/24 15:29 Calculated Osmolality 305 mOsm/kg (285-295) H 05/14/24 15: Calcium 9.5 mg/dL (8.5-10.5) 05/14/24 15: Magnesium 2.7 mg/dL (1.7-2.3) H 05/14/24 15: Total Bilirubin 0.4 mg/dL (0.15-1.2) 05/14/24 15: AST 24 U/L (0-32) 05/14/24 15: ALT 18 U/L (0-33) 05/14/24 15: Alkaline Phosphatase 64 U/L (35-105) 05/14/24 15: Ammonia 24 umol/L (11-51) 05/14/24 18:51 Total Protein 7.8 g/dL (6.6-8.7) 05/14/24 15: Albumin 4.7 g/dL (3.5-5.2) 05/14/24 15: Globulin 3.1 g/dL (1.3-4.6) 05/14/24 15: Lipase 44 U/L (13-60) 05/14/24 15: TSH 0.59 uIU/mL (0.27-4.20) 05/14/24 15: Urine Color [place] (Yellow) A 05/14/24 20:12 Urine Appearance Clear (CLEAR) 05/14/24 20:12 Urine pH 6.0 (5-7) 05/14/24 20: Ur Specific [place] 1.015 (1.005-1.030) 05/14/24 20: Urine Protein 1+ (Negative) A 05/14/24 20:12 Urine Glucose (UA) Negative (Normal) 05/14/24 20:12 Urine Ketones Negative (Negative) 05/14/24 20: Urine Blood Negative (Negative) 05/14/24 20: Urine Nitrate Negative (Negative) 05/14/24 20:12 Urine Bilirubin Negative (Negative) 05/14/24 20:12 Urine Urobilinogen 0.2 mg/dL (Negative) 05/14/24 20:12 Ur Leukocyte Esterase Negative (Negative) 05/14/24 20:12 Urine RBC 0-2 /hpf (0-2) 05/14/24 20:12 Urine WBC 0-5 /hpf (0-5) 05/14/24 20:12 Ur Squamous Epith Cells 0-5 /hpf (0-5) 05/14/24 20:12 Amorphous Sediment Not Reportable 05/14/24 20:12 Urine Bacteria None seen /hpf (NONE) 05/14/24 20:12 Hyaline Casts 1.21 /lpf 05/14/24 20:12 All radiology interpretation(s) finalized by discharge Discharge Plan Discharge Patient Disposition: Home Clinical Impression: Cerebrovascular accident, Acute on chronic renal insufficiency Condition: Stable Prescriptions: No Action multivitamin Tablet 1 tab PO DAILY omega 4-xmb-mtb-fish oil [Fish Oil] 1,000 mg (120 mg-180 mg) capsule 1 cap PO DAILY amlodipine 10 mg tablet 10 mg PO DAILY Qty: 30 2RF atorvastatin 40 mg tablet 40 mg PO QPM Qty: 30 2RF losartan 100 mg tablet 100 mg PO DAILY Qty: 30 2RF magnesium oxide 400 mg magnesium capsule 400 mg PO BID Qty: 60 2RF Mounjaro 5 mg/0.5 mL pen injector 5 mg SUBCUT .weekly Qty: 2 2RF azelastine [Astepro Allergy] 205.5 mcg (0.15 %) spray,non-aerosol 1 spray intranasal BID Qty: 30 2RF Rx Instructions: administer into each nostril prednisone 10 mg tablet 10 mg PO DAILY Qty: 7 0RF Scot-Tussin Diabetes 10 mg/5 mL liquid 10 mg PO Q6H PRN (Reason: cough) Qty: 118 0RF apixaban 2.5 mg tablet 2.5 mg PO BID Qty: 180 3RF isosorbide mononitrate 30 mg tablet extended release 24 hr 120 mg PO DAILY Qty: 360 3RF hydralazine 25 mg tablet 25 mg PO BID Qty: 180 3RF furosemide 20 mg tablet See Rx Instructions .ROUTE .COMPLEX Qty: 30 5RF Dose Instruction: TAKE ONE TABLET BY MOUTH DAILY NEEDED Rx Instructions: TAKE ONE TABLET BY MOUTH DAILY NEEDED clopidogrel 75 mg tablet See Rx Instructions .ROUTE .COMPLEX Qty: 90 3RF Dose Instruction: TAKE ONE TABLET BY MOUTH DAILY Rx Instructions: TAKE ONE TABLET BY MOUTH DAILY latanoprost 0.005 % drops 1 drp ophthalmic (eye) BEDTIME gabapentin 300 mg capsule 300 mg PO BID PRN (Reason: Pain) Rx Instructions: can take up to 5x a day brimonidine-timolol [Combigan] 0.2-0.5 % drops 1 drp ophthalmic (eye) BID vitamin [id number] acid 0.5-1 mg Tablet 1 tab PO DAILY potassium chloride 8 mEq capsule, extended release 8 meq PO DAILY Discharge Orders: Discharge ED (Routine); Ordered 05/14/24 Ordered By: Shruti Hannah Referrals: Miguel A Steve, [facility] [Primary Care Provider] - Discharge Diet: Usual diet Discharge Activity: Increase activity as tolerated Patient Instructions: Ischemic Stroke (DC), Opioid Safety, Pain Management Activity Restrictions/Additional Instructions: The neurologist has recommended that as an outpatient you have a contrasted MRI study of the brain as well as ultrasound of the carotid arteries. If symptoms worsen return to the emergency room or follow with your primary care provider Thank you for choosing [facility] for your healthcare needs today. Please realize this is an emergency room and that we are providing you with a medical screening exam and this may not be complete and all inclusive of all the testing and or work up that you may need to determine your ailment or severity of your illness. You have been screened and evaluated and felt safe for discharge. Health conditions do change or evolve sometimes and as such it is important that you follow up with your Primary Doctor to be re checked, 3-5 days is a general good time frame for follow up. You are always welcome to return to the ED for re assessment if your symptoms are worsening or you have new concerns Coding Level of Care Code ED Improvement Engineer for Zakia Merrill
[2024-05-14 19:15] LABS: Ammonia 24 umol/L (11-51)
[2024-05-14] MEDS: sodium chloride 0.9% 1,000 ML 999 ML IV (19:42)
[2024-05-14 20:24] LABS: Bilirubin Urine Negative (Negative); Blood Urine Negative (Negative); Glucose Urine UA Negative (Normal); Ketones Urine Negative (Negative); Leukocyte Esterase Urine Negative (Negative); Nitrate Urine Negative (Negative); Protein Urine 1+ (Negative); Specific Gravity, Urine 1.015 (1.005-1.030); Urine Appearance Clear (CLEAR); Urobilinogen Urine 0.2 mg/dL (Negative)
[2024-05-14 20:29] LABS: Add Urine Microscopic? YES; Bacteria Urine None Seen /hpf; Hyaline Casts Urine 1.21 /lpf; RBC Urine 0-2 /hpf (0-2); Squamous Epithelial Cell Urine 0-5 /hpf (0-5); WBC Urine 0-5 /hpf (0-5)
[2024-05-14 20:54] LABS: Urine Color Orange (Yellow)
--- NOTE | 2024-05-14 21:21 | ECG_ITS ---
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 Measurements Intervals [place] Rate: 65 P: 67 [place]: 168 QRS: 76 QRSD: 88 T: 30 QT: 381 QTc: 399 Interpretive Statements SINUS RHYTHM LOW QRS VOLTAGE IN PRECORDIAL LEADS [QRS DEFLECTION < 1.0 mV IN CHEST LEADS] NONSPECIFIC ST & T-WAVE ABNORMALITY Compared to ECG 05/14/2024 17:11:30 Low QRS voltage now present T-wave abnormality still present Electronically Signed On 05-15-2024 21:15:18 SOFTBALL COACH by Edson Carrillo M.D. [email or web address]
--- NOTE | 2024-05-14 21:45 | PM.CONSULT ---
Providers/Reason For Consult Consulting Physician/Specialty*: Tito Warner MD neurology and epilepsy Reason for Consult*: Abnormal head CT scan 05/14/2024 and short-term memory difficulty for 1 week IMPRESSION: 1. New moderate area of hypodensity in the deep periventricular white matter anteriorly, particularly on the left. Recommend further evaluation with contrast-enhanced MRI of the brain for this nonspecific finding. 2. Otherwise stable CT appearance of the brain compared to 10/11/2023 without evidence of acute intracranial pathology. Primary Care Provider: ZULAY Contreras History of Present Illness History of Present Illness Neisha Stratton is a 78 year old female with a history of atrial fibrillation, TIA, hypertension acute and chronic renal insufficiency hyperlipidemia and type 2 diabetes mellitus, bradycardia and coronary artery disease. The patient was brought in by the family secondary to family reporting that for approximately 7 days the patient has been experiencing short-term memory difficulty. The family also stated that the patient's has been sick with pneumonia and is recovering and the family is concerned that the patient may have mixed up her medications. The patient denied pain or headaches or focal weakness or speech difficulty. CBC was unrevealing. Comprehensive metabolic panel revealed elevated BUN and creatinine of 50 and 2.2 respectively. Potassium was slightly elevated at 5.2 (normal equals 3.5-5.1). The patient's other labs were unrevealing. Noncontrast head CT on 05/14/2024 was obtained and revealed IMPRESSION: 1. New moderate area of hypodensity in the deep periventricular white matter anteriorly, particularly on the left. Recommend further evaluation with contrast-enhanced MRI of the brain for this nonspecific finding. 2. Otherwise stable CT appearance of the brain compared to 10/11/2023 without evidence of acute intracranial pathology. Therefore neurology consult was requested. In the emergency department room #16 the patient was without complaints. She was alert and oriented and in no apparent distress. Family member was at the patient's bedside. Past medical history: Atrial fibrillation treated with Eliquis Coronary artery disease Bradycardia TIA Hyperlipidemia Hypertension Type 2 diabetes mellitus Chronic renal insufficiency Current medications: Eliquis 2.5 mg p.o. twice daily Plavix 75 mg p.o. every morning Norvasc 10 mg p.o. daily Lipitor 40 mg p.o. nightly Combigan eyedrops 1 drop in each eye twice a day Dextromethorphan 10 mg per 5 mL 10 mg every 6 hours as needed for cough Lasix 20 mg to use as directed Neurontin 300 mg p.o. 3 times daily as needed for pain Hydralazine 25 mg p.o. twice daily Isosorbide mononitrate ER 120 mg p.o. daily Latanoprost ophthalmic eyedrop 1 drop in each eye at bedtime Losartan 100 mg p.o. daily Magnesium oxide 400 mg p.o. twice daily Multivitamin 1 p.o. daily [place]-3 fatty acid 1000 mg p.o. daily Potassium chloride 8 mEq p.o. daily Prednisone 10 mg p.o. daily Tirzepatide 5 mg / 0.5 mL subcutaneously every week B12 with folic acid 1 p.o. daily Habits: None Family history: Negative for strokes Social history: Patient lives with her Review of Systems General: Reports: 10 or more systems reviewed and unremarkable except in HPI and below Medications/Allergies Home Medications Medication Instructions Recorded Confirmed Last Taken Type brimonidine 0.2 %-timolol 0.5 % 1 drp ophthalmic (eye) BID 08/27/20 04/22/24 08/26/20 History eye drops (Combigan) gabapentin 300 mg capsule 300 mg PO BID PRN Pain 08/27/20 04/22/24 Unknown History latanoprost 0.005 % eye drops 1 drp ophthalmic (eye) BEDTIME 08/27/20 04/22/24 08/26/20 History multivitamin 1 tab PO DAILY 12/14/21 04/22/24 Unknown History omega 8-zqb-max-fish oil 1,000 mg 1 cap PO DAILY 12/14/21 04/22/24 Unknown History (120 mg-180 mg) capsule (Fish Oil) potassium chloride 8 mEq 8 meq PO DAILY 10/12/23 04/22/24 Unknown History capsule,extended release vitamin B12 0.5 mg-folic acid 1 mg 1 tab PO DAILY 10/12/23 04/22/24 Unknown History tablet isosorbide mononitrate 30 mg 120 mg (4 x 30 mg) PO DAILY #360 10/23/23 04/22/24 Unknown Rx tablet,extended release 24 hr tabs apixaban 2.5 mg tablet 2.5 mg PO BID #180 tabs 11/15/23 04/22/24 Unknown Rx hydralazine 25 mg tablet 25 mg PO BID #180 tabs 01/30/24 04/22/24 Unknown Rx furosemide 20 mg tablet See Rx Instructions .Route 02/12/24 04/22/24 Unknown Rx .COMPLEX #30 tabs clopidogrel 75 mg tablet See Rx Instructions .Route 03/11/24 04/22/24 Unknown Rx .COMPLEX #90 tabs amlodipine 10 mg tablet 10 mg PO DAILY #30 tabs 04/09/24 04/22/24 Unknown Rx atorvastatin 40 mg tablet 40 mg PO QPM #30 tabs 04/09/24 04/22/24 Unknown Rx azelastine 205.5 mcg (0.15 %) 1 spray intranasal BID #30 mL 04/09/24 04/22/24 Unknown Rx nasal spray (Astepro Allergy) losartan 100 mg tablet 100 mg PO DAILY #30 tabs 04/09/24 04/22/24 Unknown Rx magnesium oxide 400 mg PO BID #60 caps 04/09/24 04/22/24 Unknown Rx tirzepatide 5 mg/0.5 mL 5 mg (0.5 mL) SUBCUT .weekly #2 mL 04/09/24 04/22/24 Unknown Rx subcutaneous pen injector (Mounjaro) dextromethorphan HBr 10 mg/5 mL 10 mg (5 mL) PO Q6H PRN cough #118 04/22/24 04/22/24 Unknown Rx oral liquid (Scot-Tussin Diabetes) mL prednisone 10 mg tablet 10 mg PO DAILY #7 tabs 04/22/24 04/22/24 Unknown Rx Allergies Allergy/AdvReac Type Severity Reaction Status Date / Time naproxen [From Aleve] Allergy Unknown Verified 05/14/24 13:22 PFSH Acute PFSH: Medical History Atrial fibrillation HTN (hypertension) Diabetes Chronic kidney disease Atherosclerosis of coronary artery of [place] heart without angina pectoris Obesity Hyperlipidemia LDL goal <100 Surgical History Hx of heart artery stent x 1 S/P LASIK surgery Hx of tubal ligation Family History Father CAD (coronary artery disease), Onset Age: 70 [place] Mother Cancer Grandmother Cancer Diabetes Denies family history of Clotting disorder Dementia Chronic kidney disease (CKD) Suicide Anesthesia complication Bleeding disorder Lung disease Stroke Social History Smoking and tobacco/nicotine status: never used tobacco/nicotine Alcohol intake: never Substance/Drug Use: never Adopted: No Caregiver/support person: No Lives independently: Yes Household members: spouse Housing: House Marital status: Number of children: 4 service: No Current occupational status: retired Do you think of yourself as: Straight/Heterosexual Current gender identity: Female Vitals/I&O/Wt Last Vital Signs Temp 98.0 F 05/14/24 15:22 Pulse 67 05/14/24 20:45 Resp 18 05/14/24 20:45 BP 143/76 05/14/24 21:05 Pulse Ox 94 05/14/24 21:05 O2 Del Method Room Air 05/14/24 20:45 Weight last 48 hrs Weight 167 lb Physical Exam Narrative: NIH score =0 The patient is alert and oriented to person place and situation. Patient was able to tell me her complete name including her middle name date of and age. Patient knew she was at [facility] emergency department. Patient knew the month, year, day of the week. Head atraumatic. Neck supple. Cranial nerves II through XII intact. Speech clear fluent. There was no obvious facial weakness. Visual bajwa full via confrontation. Extraocular movements intact. There were no nystagmus. Motor testing 5/5 bilaterally while examined the patient on the [facility] in the emergency department room #16. Mjefur-rfqx-eujlra revealed no ataxia. Ywdn-vvrn-wczt maneuver revealed no ataxia. Deep tendon reflex revealed plantar responses bilaterally. Sensory examination was intact to gross modalities. Throat clear. Lungs clear. Heart regular rhythm and rate. Extremities were negative for cyanosis or edema. Data 05/14/24 15:29 05/14/24 15:29 A&P Assessment and plan (1) Abnormal CT scan of head: Impression: 1. Abnormal head CT scan 05/14/2024 secondary to New moderate area of hypodensity in the deep periventricular white matter anteriorly, particularly on the left. Recommend further evaluation with contrast-enhanced MRI of the brain for this nonspecific finding. Otherwise stable CT appearance of the brain compared to 10/11/2023 without evidence of acute intracranial pathology. 2. Reports of short-term memory loss for the last 7 days, patient was oriented in the emergency department during neurological assess 3. Atrial fibrillation treated with Xarelto and Plavix 4. Type 2 diabetes mellitus 5. Coronary artery disease 6. Hyperlipidemia 7. Chronic renal insufficiency creatinine 2.2 Plan: 1. Agree with obtaining outpatient noncontrast head MRI to further assess findings reported on noncontrast head CT scan 05/14/2020 2. Recommend obtaining outpatient carotid duplex study to assess for carotid or vertebral artery stenosis 3. Recommend obtaining noncontrast MRA of the brain to assess for intracranial stenosis and evaluate for aneurysm 4. Recommend having patient follow-up with cardiology 5. Patient stable from neurological standpoint for discharge planning from the emergency department 6. The patient's outpatient workup was discussed with the family member who was present in the emergency department room #16 7. Please schedule patient for follow-up in the [facility] neurology clinic after the above is being completed Consult Attestations Medical Necessity Statement: . Patient was evaluated by neurology for abnormal CT scan and reports of short-term memory difficulty for 7 days Coding Level of Care Code [address] scan of head R93.0
== END 2024-05-14 22:00 | disposition home or self-care (01) ==
PROVIDERS: Emergency Medicine; Emergency Provider Emergency Medicine; PCP Nurse Practitioner
DX: I63.9 Cerebral infarction, unspecified (principal); E11.22 Type 2 diabetes mellitus with diabetic chronic kidney disease; I12.9 Hypertensive chronic kidney disease with stage 1 through stage 4 chronic kidney disease, or unspecified chronic kidney disease; N18.9 Chronic kidney disease, unspecified; I25.10 Atherosclerotic heart disease of native coronary artery without angina pectoris; E78.5 Hyperlipidemia, unspecified
CPT/HCPCS: 36415; 70450; 71045; 80053; 81001; 82140; 83690; 83735; 84443; 85025; 93005; 96360; 99285; J7030

== ENCOUNTER 2024-05-23 10:56 | Outpatient (CLI) | payer MEDICARE, SELFPAY ==
--- NOTE | 2024-05-23 11:00 | MR_ITS ---
WS: [id number] MRI BRAIN WITH AND WITHOUT CONTRAST HISTORY: R93.0 - Abnormal findings finding on recent head CT of 05/14/2024 COMPARISON: CT head 05/14/2024. Prior MRI 10/12/2023 TECHNIQUE: Multiplanar imaging performed through the brain with MultiHance 15 ml's IV. Very subtle diffusion abnormalities are noted in the posterior LEFT corpus callosum and in the LEFT c musa radiata. These are small lacunar infarcts. Additional very subtle diffusion abnormalities noted bilaterally within the anterior frontal lobes. On the FLAIR image there is new extensive white matte r edema. Greater diffusion abnormality involving the LEFT frontal lobe. No hemorrhage. Mild diffuse atrophy and volume loss. Additional prior small vessel ischemic changes i n the periventricular white matter. Moderate hippocampal atrophy. Ventricles and extra-axial spaces are normal. Clivus and pituitary gland are normal. Visualized posterior fossa and brainstem are also normal. Flow void and enhancement of the distal RIGHT carotid artery is difficult to confirm is normal. On the postcontrast imaging there is serpiginous enhancement noted bilaterally in the frontal lobes w hich corresponds to the area of the subacute infarcts. No mass. Dural venous sinuses are normal. Paranasal sinuses: Well aerated with no significant disease. Mastoid air cells: Normal. Calvarium and scalp: Normal. MR/MR head wo/w con [id number] IMPRESSION: 1. 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 Serpiginous enhancement in the frontal lobes at the site of the infarcts. 2. Moderate small vessel ischemic type changes are also noted. 3. No enhancing mass. 4. Distal RIGHT ICA in the cavernous sinuses difficult to identify and confirm is patent. Consider follow-up CT angiogram [place] [facility] [place]. 5. Moderate hippocampal atrophy.
[2024-05-23 11:35] LABS: Ammonia 17 umol/L (11-51)
[2024-05-23 11:36] LABS: Alanine Aminotransferase 29 U/L (0-33); Albumin Level 3.9 g/dL (3.5-5.2); Alkaline Phosphatase 55 U/L (35-105); Anion Gap 15.1 (5-19); Aspartate Amino Transferase 27 U/L (0-32); Blood Urea Nitrogen 32 mg/dL (8-23); Calcium 8.8 mg/dL (8.5-10.5); Carbon Dioxide 26 mmol/L (22-29); Chloride 99 mmol/L (98-107); Creatinine Clr Calc Pharmacy 26.1234; Globulin 2.3 g/dL (1.3-4.6); Glucose 269 mg/dL (65-115); Osmolality Calculated 296 mOsm/kg (285-295); Potassium 5.1 mmol/L (3.5-5.1); Sodium 135 mmol/L (136-145); Total Bilirubin 0.4 mg/dL (0.15-1.2); Total Protein 6.2 g/dL (6.6-8.7)
[2024-05-23] MEDS: gadobenate dimeglumine 20 mL vial 15 ML IV (12:07)
== END 2024-05-23 10:57 | disposition home or self-care (01) ==
PROVIDERS: PCP Nurse Practitioner; Visit Provider Nurse Practitioner
DX: I67.82 Cerebral ischemia; I69.314 Frontal lobe and executive function deficit following cerebral infarction; G31.89 Other specified degenerative diseases of nervous system; R41.3 Other amnesia; I10 Essential (primary) hypertension
CPT/HCPCS: 36415; 70553; 80053; 82140; A9577

== ENCOUNTER 2024-06-19 08:34 | Outpatient (CLI) | payer MEDICARE, SELFPAY ==
--- NOTE | 2024-06-19 09:00 | MM_ITS ---
WS: [id number] RIGHT 3D TOMOSYNTHESIS DIGITAL MAMMOGRAPHY WITH CAD CLINICAL INFORMATION: R92.8 - Other abnormal and inconclusive findings on diagn... HISTORY: Additional views COMPARISON: 05/13/2024 TECHNIQUE: 3 views of the right breast were obtained. FINDINGS: The right breast is composed of heterogeneous fibroglandular density tissue, which can limit the dete ction of small underlying mass lesions. Previously described asymmetric nodular density RIGHT breast compresses out on the spot compression v iews today. No other suspicious abnormalities. Recommend return to annual screen mammography. MM/MM diag RT tomosynthesis [id number] IMPRESSION: DENSITY: The breasts are heterogeneously dense, which may obscure small masses. BI-RADS: 2 - Benign FOLLOW UP: 1 Year Follow-up Recommend return to annual screening mammography.
== END 2024-06-19 08:35 | disposition home or self-care (01) ==
PROVIDERS: PCP Nurse Practitioner; Visit Provider Nurse Practitioner
DX: R92.8 Other abnormal and inconclusive findings on diagnostic imaging of breast (principal); R92.333 Mammographic heterogeneous density, bilateral breasts
CPT/HCPCS: 77061; G0279

== ENCOUNTER → 2024-07-08 09:08 | Outpatient (BNVA) | payer MEDICARE, SELFPAY | PROVIDERS: PCP Nurse Practitioner; Visit Provider Nurse Practitioner Family | DX: I48.19 Other persistent atrial fibrillation (principal); I13.0 Hypertensive heart and chronic kidney disease with heart failure and stage 1 through stage 4 chronic kidney disease, or unspecified chronic kidney disease; I50.32 Chronic diastolic (congestive) heart failure; N18.9 Chronic kidney disease, unspecified; I25.118 Atherosclerotic heart disease of native coronary artery with other forms of angina pectoris; E78.5 Hyperlipidemia, unspecified; Z86.73 Personal history of transient ischemic attack (TIA), and cerebral infarction without residual deficits; Z79.01 Long term (current) use of anticoagulants | CPT/HCPCS: 36415; 80048; 83880; 99213 ==

== ENCOUNTER → 2024-07-09 07:49 | Outpatient (BNVA) | payer MEDICARE, SELFPAY | PROVIDERS: PCP Nurse Practitioner; Referring Provider Nurse Practitioner; Visit Provider Psychiatry & Neurology Neurology | DX: I63.9 Cerebral infarction, unspecified; M25.561 Pain in right knee | CPT/HCPCS: 99212 ==

== ENCOUNTER 2024-07-09 09:02 | Emergency (ER) | payer MEDICARE, SELFPAY ==
--- NOTE | 2024-07-09 09:04 | XR_ITS ---
WS: [id number] Right knee, 3 views, 07/09/2024 Clinical Data: injury Comparison: None. Findings: No fractures or dislocations are seen. The joint spaces are normal. There is minimal irregularity of the posterior right patella with a posterior superior spur.. The soft tissues are unremarkable. There is minimal chondral cartilage calcification and calcification adjacent to the tibial spines. Th ere is also calcification in the medial and lateral collateral ligaments adjacent to the femur. Vasc ular calcification is seen. XR/XR knee RT 3V* [id number] Impression: 1. Minimal chondral cartilage calcification. 2. Minimal calcification of the medial and lateral collateral ligaments along w ith mild posterior patellar spurring. Kellgren-Jed Classification: grade 1 (doubtful): doubtful joint space narr owing and possible osteophytic lipping
[2024-07-09 09:42] VITALS: BP 165/93; PULSE 67; RESP 18; TEMP 36.7; O2SAT 99; BMI 29.2
--- NOTE | 2024-07-09 10:09 | USCV_ITS ---
Stratton Neisha Age: 78 Gender: F : 1945 Exam Date: 07/09/2024 10:33 Ordering Phys: Melo Viera DO Technologist: Exam Location: [facility]_ Indication: rt leg pain at knee PROCEDURES: Venous duplex imaging was performed in only the right lower extremity. The following venous structures were evaluated: common femoral vein, profunda vein, proximal portion of the greater saphenous vein, superficial femoral vein, and the popliteal vein. In addition, the posterior tibial and peroneal trunk were evaluated. FINDINGS: Normal 2-D Doppler and augmentation and compressibility throughout the lower extremity venous structures. Additional imaging through the proximal calf veins also reveals no thrombus. Limited evaluation of the greater saphenous vein is patent with no thrombus. Right Jordan cyst. CONCLUSIONS No DVT right lower extremity. Dr. Zaira Rios DO (Electronically Signed) Final Date: 09 July 2024 11:35 S
--- NOTE | 2024-07-09 10:11 | W.ED.EXTPRO ---
HPI - Extremity Problem General: Chief complaint: Extremity Injury, Lower Stated complaint: R knee swollen Time Seen by Provider: 07/09/24 10:02 History of Present Illness: 78-year-old female presents with right knee swelling and posterior tenderness. Patient started wearing compression stockings and has noticed she has developed some knee swelling. She saw her neurologist this morning and they were concerned about a potential blood clot. They were unable to obtain an outpatient venous Doppler so sent her to the ER to have it further evaluated with a venous Doppler for a blood clot. Associated symptoms: Deny chest pain, fever(s) or rash Related Data Home Medications Medication Instructions Recorded Confirmed brimonidine 0.2 %-timolol 0.5 % 1 drp ophthalmic (eye) BID 08/27/20 07/09/24 eye drops (Combigan) gabapentin 300 mg capsule 300 mg PO BID PRN Pain 08/27/20 07/09/24 latanoprost 0.005 % eye drops 1 drp ophthalmic (eye) BEDTIME 08/27/20 07/09/24 multivitamin 1 tab PO DAILY 12/14/21 07/09/24 omega 4-dhs-tqu-fish oil 1,000 mg 1 cap PO DAILY 12/14/21 07/09/24 (120 mg-180 mg) capsule (Fish Oil) vitamin B12 0.5 mg-folic acid 1 mg 1 tab PO DAILY 10/12/23 07/09/24 tablet Previous Rx's Medication Instructions Recorded isosorbide mononitrate 30 mg 120 mg (4 x 30 mg) PO DAILY #360 10/23/23 tablet,extended release 24 hr tabs apixaban 2.5 mg tablet 2.5 mg PO BID #180 tabs 11/15/23 hydralazine 25 mg tablet 25 mg PO BID #180 tabs 01/30/24 clopidogrel 75 mg tablet See Rx Instructions .Route 03/11/24 .COMPLEX #90 tabs amlodipine 10 mg tablet 10 mg PO DAILY #30 tabs 04/09/24 atorvastatin 40 mg tablet 40 mg PO QPM #30 tabs 04/09/24 azelastine 205.5 mcg (0.15 %) 1 spray intranasal BID #30 mL 04/09/24 nasal spray (Astepro Allergy) losartan 100 mg tablet 100 mg PO DAILY #30 tabs 04/09/24 magnesium oxide 400 mg PO BID #60 caps 04/09/24 tirzepatide 5 mg/0.5 mL 5 mg (0.5 mL) SUBCUT .weekly #2 mL 04/09/24 subcutaneous pen injector (Mounjaro) dextromethorphan HBr 10 mg/5 mL 10 mg (5 mL) PO Q6H PRN cough #118 04/22/24 oral liquid (Scot-Tussin Diabetes) mL prednisone 10 mg tablet 10 mg PO DAILY #7 tabs 04/22/24 potassium chloride 8 mEq See Rx Instructions .Route 06/03/24 capsule,extended release .COMPLEX #90 caps furosemide 20 mg tablet See Rx Instructions .Route 06/30/24 .COMPLEX #30 tabs Allergies Allergy/AdvReac Type Severity Reaction Status Date / Time naproxen [From Aleve] Allergy Unknown Verified 07/09/24 07:53 Review of Systems Const: Denies: fever(s) or chills Card: Reports: edema; Denies: chest pain or palpitations Resp: Denies: dyspnea or productive cough : Denies: flank pain or difficulty voiding Musc: Denies: neck pain Skin/Breast: Denies: rash PFSH ED PFSH: Medical History Atrial fibrillation HTN (hypertension) Diabetes Chronic kidney disease Atherosclerosis of coronary artery of [place] heart without angina pectoris Obesity Hyperlipidemia LDL goal <100 Surgical History Hx of heart artery stent x 1 S/P LASIK surgery Hx of tubal ligation Family History Father CAD (coronary artery disease), Onset Age: 70 [place] Mother Cancer Grandmother Cancer Diabetes Denies family history of Clotting disorder Dementia Chronic kidney disease (CKD) Suicide Anesthesia complication Bleeding disorder Lung disease Stroke Social History Smoking and tobacco/nicotine status: never used tobacco/nicotine Alcohol intake: never Substance/Drug Use: never Adopted: No Caregiver/support person: No Lives independently: Yes Household members: spouse Housing: House Marital status: Number of children: 4 service: No Current occupational status: retired Do you think of yourself as: Straight/Heterosexual Current gender identity: Female Physical Exam Const: COMMON NORMALS: no acute distress, average body habitus, patient oriented x3 and alert Resp: COMMON NORMALS: normal respiratory effort, No retractions and No use of accessory muscles Cardio: COMMON NORMALS: regular rate and regular rhythm RATE: regular rate RHYTHM: regular rhythm Extremity: RIGHT LOWER EXTREMITY: Yes lower leg (Swelling, popliteal fossa tenderness) Neuro: COMMON NORMALS: patient oriented x3, moves all extremities, no focal motor deficits and no sensory deficits noted SENSORIUM/ORIENTATION: Yes alert Psych: COMMON NORMALS: mental status grossly normal, Normal thought process present, cooperative and normal affect THOUGHT PROCESS: Normal thought process present Skin: COMMON NORMALS: turgor normal GENERAL SKIN EXAM: turgor normal Course Vital Signs: Vital signs: Vital Signs Temperature 98.0 F 07/09/24 09:42 Pulse Rate 67 07/09/24 09:42 Respiratory Rate 18 07/09/24 09:42 Blood Pressure 165/93 07/09/24 09:42 Pulse Oximetry 99 07/09/24 09:42 Oxygen Delivery Me thod Room Air 07/09/24 09:42 MDM - Extremity (Nontraumatic) Medical Decision Making Patient's ultrasound was ordered reviewed and shows a Jordan's cyst and no DVT. Discussed with her supportive care. Patient's knee x-ray shows just osteoarthritis likely contributing to it. Patient was stable discharged home. Recommend she follow-up with her primary care provider as needed for further management. Patient was stable and discharged home Lab Data Radiology Impressions Knee X-Ray 07/09/24 09:04 Impression: 1. Minimal chondral cartilage calcification. 2. Minimal calcification of the medial and lateral collateral ligaments along with mild posterior patellar spurring. Kellgren-Jed Classification: grade 1 (doubtful): doubtful joint space narrowing and possible osteophytic lipping All radiology interpretation(s) finalized by discharge Discharge Plan Discharge Patient Disposition: Home Clinical Impression: Popliteal synovial cyst Qualifiers: Laterality: right Qualified Code(s): M71.21 - Synovial cyst of popliteal space [Jordan], right knee Condition: Stable Prescriptions: No Action multivitamin Tablet 1 tab PO DAILY omega 7-cqb-niq-fish oil [Fish Oil] 1,000 mg (120 mg-180 mg) capsule 1 cap PO DAILY amlodipine 10 mg tablet 10 mg PO DAILY Qty: 30 2RF atorvastatin 40 mg tablet 40 mg PO QPM Qty: 30 2RF losartan 100 mg tablet 100 mg PO DAILY Qty: 30 2RF magnesium oxide 400 mg magnesium capsule 400 mg PO BID Qty: 60 2RF Mounjaro 5 mg/0.5 mL pen injector 5 mg SUBCUT .weekly Qty: 2 2RF azelastine [Astepro Allergy] 205.5 mcg (0.15 %) spray,non-aerosol 1 spray intranasal BID Qty: 30 2RF Rx Instructions: administer into each nostril prednisone 10 mg tablet 10 mg PO DAILY Qty: 7 0RF Scot-Tussin Diabetes 10 mg/5 mL liquid 10 mg PO Q6H PRN (Reason: cough) Qty: 118 0RF apixaban 2.5 mg tablet 2.5 mg PO BID Qty: 180 3RF isosorbide mononitrate 30 mg tablet extended release 24 hr 120 mg PO DAILY Qty: 360 3RF hydralazine 25 mg tablet 25 mg PO BID Qty: 180 3RF clopidogrel 75 mg tablet See Rx Instructions .ROUTE .COMPLEX Qty: 90 3RF Dose Instruction: TAKE ONE TABLET BY MOUTH DAILY Rx Instructions: TAKE ONE TABLET BY MOUTH DAILY potassium chloride 8 mEq capsule, extended release See Rx Instructions .ROUTE .COMPLEX Qty: 90 3RF Dose Instruction: TAKE ONE CAPSULE BY MOUTH DAILY Rx Instructions: TAKE ONE CAPSULE BY MOUTH DAILY furosemide 20 mg tablet See Rx Instructions .ROUTE .COMPLEX Qty: 30 5RF Dose Instruction: TAKE ONE TABLET BY MOUTH DAILY NEEDED Rx Instructions: TAKE ONE TABLET BY MOUTH DAILY NEEDED latanoprost 0.005 % drops 1 drp ophthalmic (eye) BEDTIME gabapentin 300 mg capsule 300 mg PO BID PRN (Reason: Pain) Rx Instructions: can take up to 5x a day brimonidine-timolol [Combigan] 0.2-0.5 % drops 1 drp ophthalmic (eye) BID vitamin P28-nqyig acid 0.5-1 mg Tablet 1 tab PO DAILY Discharge Orders: Discharge ED (Routine); Ordered 07/09/24 Ordered By: Melo Viera Referrals: Miguel A Steve, FARM MANAGEMENT PROFESSOR-C [Primary Care Provider] - Discharge Diet: Usual diet Discharge Activity: Resume usual activity Patient Instructions: Jordan Cyst (ED), Opioid Safety, Pain Management Activity Restrictions/Additional Instructions: Please follow-up with your primary care provider as needed. Please continue to wear your compression stockings when you are ambulating. You may remove them at night when your legs are elevated. You may use an Dl wrap as needed for comfort over your right knee. Coding Level of Care Code ED Senior Staff Consultant for Zakia Merrill
[2024-07-09 11:13] VITALS: BP 170/80; PULSE 72; O2SAT 99
== END 2024-07-09 11:14 | disposition home or self-care (01) ==
PROVIDERS: Emergency Provider Student in an Organized Health Care Education/Training Program; PCP Nurse Practitioner
DX: M71.21 Synovial cyst of popliteal space [Baker], right knee (principal); I10 Essential (primary) hypertension; I25.10 Atherosclerotic heart disease of native coronary artery without angina pectoris; E78.5 Hyperlipidemia, unspecified; E11.22 Type 2 diabetes mellitus with diabetic chronic kidney disease; I12.9 Hypertensive chronic kidney disease with stage 1 through stage 4 chronic kidney disease, or unspecified chronic kidney disease; N18.9 Chronic kidney disease, unspecified
CPT/HCPCS: 73562; 93971; 99284

== ENCOUNTER 2024-07-12 13:56 | Emergency (ER) | payer MEDICARE, SELFPAY ==
[2024-07-12 13:59] VITALS: BP 182/51; PULSE 94; RESP 16; TEMP 37; O2SAT 95; BMI 29.2
--- NOTE | 2024-07-12 15:06 | XRR_ITS ---
PROCEDURE INFORMATION: Exam: XR Right Knee Exam date and time: 07/12/2024 3:18 PM Age: 79 years old Clinical indication: Patient HX: PT arrives via EMS from home with complaint of right knee pain that radiates down right calf. She states she was dx with a cyst on right knee by pcp but PT does not know what the pcp told her to about the pain. ; Additional info: Injury TECHNIQUE: Imaging protocol: Radiologic exam of the right knee. Views: 3 views. COMPARISON: CR XR knee RT 3V* [id number] 07/09/2024 9:13 AM FINDINGS: Bones/joints: No fracture or other acute abnormality. There is mild chondrocalcinosis. There are small posterior patellar osteophytes.. Soft tissues: Normal. XR/XR knee RT 3V* [id number] IMPRESSION: Nonacute findings.
--- NOTE | 2024-07-12 15:18 | CTR_ITS ---
PROCEDURE INFORMATION: Exam: CT Head Without Contrast Exam date and time: 07/12/2024 3:35 PM Age: 79 years old Clinical indication: Injury or trauma; Fall; Blunt trauma (contusions or hematomas); Without loss of consciousness; Injury details: Confusion, HX of stroke TECHNIQUE: Imaging protocol: Computed tomography of the head without contrast. Radiation optimization: All CT scans at this facility use at least one of these dose optimization techniques: automated exposure control; mA and/or kV adjustment per patient size (includes targeted exams where dose is matched to clinical indication); or iterative reconstruction. COMPARISON: MR head wo/w con [id number] 05/23/2024 11:31 AM RADIATION DOSE METRICS: Total DLP (mGy-cm): 910.98 FINDINGS: Brain: Age related brain involution is present. Diffuse subcortical and periventricular white matter hypodensities are most in favor with chronic small vessel disease. There are multiple small hypodensities in the basal ganglia, consistent with remote lacunar infarctions. Increased white matter hypodensity in the left frontal lobe, favoring chronic encephalomalacia. Mancuso-white matter differentiation is preserved. Cerebral ventricles: Compensatory exvacuo ventriculomegaly. Paranasal sinuses: Visualized sinuses are unremarkable. No fluid levels. Mastoid air cells: Visualized mastoid air cells are well aerated. Bones: Unremarkable. No acute fracture. Soft tissues: Unremarkable. CT/CT head wo con* [id number] IMPRESSION: No acute intracranial abnormality.
--- NOTE | 2024-07-12 15:26 | ED_ITS ---
HPI - Extremity Problem 2 General: Chief complaint: Extremity Injury, Lower Stated complaint: R knee pain Time Seen by Provider: 07/12/24 14:36 Source: patient Mode of arrival: ambulatory Limitations: no limitations History of Present Illness: 79-year-old female who has been having s ome pain in her right leg along with swelling she had a recent ultrasound showed a Jordan's cyst no signs of DVT she states been having some increasing pain feeling restless denies any recent injury denies any vomiting diarrhea. Associated symptoms: Deny chest pain, fever(s) or rash Related Data Home Medications Medication Instructions Recorded Confirmed brimonidine 0.2 %-timolol 0.5 % 1 drp ophthalmic (eye) BID 08/27/20 07/09/24 eye drops (Combigan) gabapentin 300 mg capsule 300 mg PO BID PRN Pain 08/27/20 07/09/24 latanoprost 0.005 % eye drops 1 drp ophthalmic (eye) BEDTIME 08/27/20 07/09/24 multivitamin 1 tab PO DAILY 12/14/21 07/09/24 omega 8-xcd-chy-fish oil 1,000 mg 1 cap PO DAILY 12/14/21 07/09/24 (120 mg-180 mg) capsule (Fish Oil) vitamin B12 0.5 mg-folic acid 1 mg 1 tab PO DAILY 10/12/23 07/09/24 tablet biotin 10,000 mcg chewable tablet 10,000 mcg PO DAILY 07/09/24 07/09/24 (Hair, Skin and Nails (biotin)) clopidogrel 75 mg tablet 75 mg PO DAILY 07/09/24 07/09/24 furosemide 20 mg tablet 20 mg PO DAILY edema 07/09/24 07/09/24 potassium chloride 8 mEq 8 meq PO DAILY 07/09/24 07/09/24 capsule,extended release Previous Rx's Medication Instructions Recorded isosorbide mononitrate 30 mg 120 mg (4 x 30 mg) PO DAILY #360 10/23/23 tablet,extended release 24 hr tabs apixaban 2.5 mg tablet 2.5 mg PO BID #180 tabs 11/15/23 hydralazine 25 mg tablet 25 mg PO BID #180 tabs 01/30/24 amlodipine 10 mg tablet 10 mg PO DAILY #30 tabs 04/09/24 atorvastatin 40 mg tablet 40 mg PO QPM #30 tabs 04/09/24 azelastine 205.5 mcg (0.15 %) 1 spray intranasal BID #30 mL 04/09/24 nasal spray (Astepro Allergy) losartan 100 mg tablet 100 mg PO DAILY #30 tabs 04/09/24 magnesium oxide 400 mg PO BID #60 caps 04/09/24 tirzepatide 5 mg/0.5 mL 5 mg (0.5 mL) SUBCUT .weekly #2 mL 04/09/24 subcutaneous pen injector (Mounjaro) Allergies Allergy/AdvReac Type Severity Reaction Status Date / Time naproxen [From Aleve] Allergy Unknown Verified 07/09/24 07:53 Review of Systems 2 Const: Denies: fever(s), chills, body aches or change in appetite Eyes: Denies: blurry vision or eye discomfort ENMT: Denies: throat pain or dental pain Card: Denies: chest pain Resp: Denies: dyspnea GI: Denies: abdominal pain, nausea, vomiting or diarrhea Musc: Reports: extremity pain and extremity swelling; Denies: neck pain or back pain Skin/Breast: Denies: rash Neuro: Denies: headache(s) PFSH ED 2 PFSH: Medical History Atrial fibrillation HTN (hypertension) Diabetes Chronic kidney disease Atherosclerosis of coronary artery of [place] heart without angina pectoris Obesity Hyperlipidemia LDL goal <100 Surgical History Hx of heart artery stent x 1 S/P LASIK surgery Hx of tubal ligation Family History Father CAD (coronary artery disease), Onset Age: 70 [place] Mother Cancer Grandmother Cancer Diabetes Denies family history of Clotting disorder Dementia Chronic kidney disease (CKD) Suicide Anesthesia complication Bleeding disorder Lung disease Stroke Social History Smoking and tobacco/nicotine status: never used tobacco/nicotine Alcohol intake: never Substance/Drug Use: never Adopted: No Caregiver/support person: No Lives independently: Yes Household members: spouse Housing: House Marital status: Number of children: 4 service: No Current occupational status: retired Do you think of yourself as: Straight/Heterosexual Current gender identity: Female Physical Exam 2 Const: COMMON NORMALS: no acute distress and healthy appearing HENMT: COMMON NORMALS: normocephalic and atraumatic HEAD & SCALP: n ormocephalic and atraumatic Eye: COMMON NORMALS: Equal, round and reactive pupils present and EOMs intact bilaterally PUPIL: Yes Equal, round and reactive pupils present Neck/C-Spine: COMMON NORMALS: full ROM and supple Chest: COMMONS NORMALS: normal inspection of the chest Resp: COMMON NORMALS: normal respiratory effort, No retractions, No use of accessory muscles and clear to auscultation bilaterally AUSCULTATION: clear to auscultation bilaterally Cardio: COMMON NORMALS: regular rate, regular rhythm and No murmurs present (Cardio) RATE: regular rate RHYTHM: regular rhythm Extremity: COMMON NORMALS: full ROM NARRATIVE EXTREMITY EXAM: Slight swelling noted to right lower leg minimal tenderness distal pulses intact Neuro: COMMON NORMALS: moves all extremities and no focal motor deficits Psych: COMMON NORMALS: mental status grossly normal, Normal thought process present and cooperative THOUGHT PROCESS: Normal thought process present Skin: COMMON NORMALS: no rashes or lesions noted and no wounds GENERAL SKIN EXAM: no rashes or lesions noted Course 2 Vital Signs: Vital signs: Vital Signs Temperature 98.6 F 07/12/24 13:59 Pulse Rate 91 07/12/24 16:07 Respiratory Rate 16 07/12/24 16:07 Blood Pressure 149/48 07/12/24 16:42 Pulse Oximetry 92 07/12/24 16:42 Oxygen Delivery Me thod Room Air 07/12/24 13:59 MDM - Extremity (Nontraumatic) Medical Decision Making Patient presents here with some right knee pain along with right leg swelling she had a recent ultrasound just a few days ago showed a Jordan's cyst no signs of DVT then. Distal pulses here intact no reason to repeat the ultrasound she has been well-appearing here blood works normal she stable for discharge follow- up with PCP return if worsening. Medical Records I reviewed the patient's medical records. Lab Data I reviewed the patient's lab results. 07/12/24 15:23 07/12/24 15:23 Radiology Impressions Knee X-Ray 07/12/24 15:06 IMPRESSION: Nonacute findings. Head CT 07/12/24 15:18 IMPRESSION: No acute intracranial abnormality. Laboratory Results WBC 8.58 10^3/uL (3.29-11.43) 07/12/24 15:23 RBC 3.59 10^6/uL (3.85-5.65) L 07/12/24 15:23 Hgb 10.50 g/dL (11.27-16.99) L 07/12/24 15:23 Hct 31.3 % (36-47) L 07/12/24 15:23 MCV 87.2 fl (85-98) 07/12/24 15:23 MCH 29.2 pg (27-33) 07/12/24 15:23 MCHC 33.5 g/dL (30-55) 07/12/24 15:23 RDW 12.1 % (12.1-15.1) 07/12/24 15:23 Plt Count 175 10^3/cmm (157-399) 07/12/24 15:23 MPV 10.3 fL (7.4-10.4) 07/12/24 15:23 Neut % (Auto) 76.0 % 07/12/24 15:23 Lymph % (Auto) 13.1 % 07/12/24 15:23 Davison % (Auto) 10.5 % 07/12/24 15:23 Eos % (Auto) 0.1 % 07/12/24 15:23 Baso % (Auto) 0.1 % 07/12/24 15:23 Neut # (Auto) 6.52 10^3/uL (1.8-7.7) 07/12/24 15:23 Lymph # (Auto) 1.1 10^3/uL (0.8-4.8) 07/12/24 15:23 Davison # (Auto) 0.9 10^3/uL (0.2-0.9) 07/12/24 15:23 Eos # (Auto) 0.0 10^3/uL (0.0-0.8) 07/12/24 15:23 Baso # (Auto) 0.0 10^3/uL (0.0-0.1) 07/12/24 15:23 Nucleated RBC % (auto) 0 % 07/12/24 15:23 Nucleated RBCs # 0.0 /100WBC 07/12/24 15:23 Sodium 134 mmol/L (136-145) L 07/12/24 15:23 Potassium 4.6 mmol/L (3.5-5.1) 07/12/24 15:23 Chloride 94 mmol/L (98-107) L 07/12/24 15:23 Carbon Dioxide 25 mmol/L (22-29) 07/12/24 15:23 Anion Gap 19.6 (5-19) H 07/12/24 15:23 BUN 34 mg/dL (8-23) H 07/12/24 15:23 Creatinine 1.7 mg/dL (0.5-0.9) H 07/12/24 15:23 GFR Calculation Not Reportable 07/12/24 15:23 Glucose 218 mg/dL (65-115) H 07/12/24 15:23 Calculated Osmolality 292 mOsm/kg (285-295) 07/12/24 15:23 Calcium 8.9 mg/dL (8.5-10.5) 07/12/24 15:23 Total Bilirubin 1.0 mg/dL (0.15-1.2) 07/12/24 15:23 AST 17 U/L (0-32) 07/12/24 15:23 ALT 17 U/L (0-33) 07/12/24 15:23 Alkaline Phosphatase 63 U/L (35-105) 07/12/24 15:23 NT-Pro-B Natriuret Pep 526 pg/mL (0-450) H 07/12/24 15:23 Total Protein 6.7 g/dL (6.6-8.7) 07/12/24 15:23 Albumin 3.9 g/dL (3.5-5.2) 07/12/24 15:23 Globulin 2.8 g/dL (1.3-4.6) 07/12/24 15:23 All radiology interpretation(s) finalized by discharge Discharge Plan Discharge Patient Disposition: Home Clinical Impression: Popliteal synovial cyst, Leg pain, right Condition: Stable Prescriptions: No Action multivitamin Tablet 1 tab PO DAILY omega 9-mhj-jss-fish oil [Fish Oil] 1,000 mg (120 mg-180 mg) capsule 1 cap PO DAILY amlodipine 10 mg tablet 10 mg PO DAILY Qty: 30 2RF atorvastatin 40 mg tablet 40 mg PO QPM Qty: 30 2RF losartan 100 mg tablet 100 mg PO DAILY Qty: 30 2RF magnesium oxide 400 mg magnesium capsule 400 mg PO BID Qty: 60 2RF Mounjaro 5 mg/0.5 mL pen injector 5 mg SUBCUT .weekly Qty: 2 2RF azelastine [Astepro Allergy] 205.5 mcg (0.15 %) spray,non-aerosol 1 spray intranasal BID Qty: 30 2RF Rx Instructions: administer into each nostril apixaban 2.5 mg tablet 2.5 mg PO BID Qty: 180 3RF isosorbide mononitrate 30 mg tablet extended release 24 hr 120 mg PO DAILY Qty: 360 3RF hydralazine 25 mg tablet 25 mg PO BID Qty: 180 3RF latanoprost 0.005 % drops 1 drp ophthalmic (eye) BEDTIME gabapentin 300 mg capsule 300 mg PO BID PRN (Reason: Pain) Rx Instructions: can take up to 5x a day brimonidine-timolol [Combigan] 0.2-0.5 % drops 1 drp ophthalmic (eye) BID Hair, Skin and Nails (biotin) 10,000 mcg Tablet,Chewable 10,000 mcg PO DAILY potassium chloride 8 mEq capsule, extended release 8 meq PO DAILY Rx Instructions: TAKE ONE CAPSULE BY MOUTH DAILY clopidogrel 75 mg tablet 75 mg PO DAILY Rx Instructions: TAKE ONE TABLET BY MOUTH DAILY furosemide 20 mg tablet 20 mg PO DAILY Rx Instructions: TAKE ONE TABLET BY MOUTH DAILY NEEDED vitamin M57-opcnu acid 0.5-1 mg Tablet 1 tab PO DAILY Discharge Orders: Discharge ED (Routine); Ordered 07/12/24 Ordered By: Almas Potts Referrals: Miguel A Steve, MANAGER OF [employer] [Primary Care Provider] - 4-7 days Discharge Diet: Advance as tolerated Discharge Activity: Resume usual activity Patient Instructions: Jordan Cyst (ED), Leg Pain (ED) Coding Level of Care Code ED Collections Rep for Zakia Merrill
[2024-07-12 15:34] LABS: Basophils % 0.1 %; Eosinophils % 0.1 %; Hematocrit 31.3 % (36-47); Lymphocytes # 1.1 10^3/uL (0.8-4.8); Lymphocytes % 13.1 %; Mean Corpuscular HGB Conc 33.5 g/dL (30-55); Mean Corpuscular Hemoglobin 29.2 pg (27-33); Mean Corpuscular Volume 87.2 fl (85-98); Mean Platelet Volume 10.3 fL (7.4-10.4); Monocytes # 0.9 10^3/uL (0.2-0.9); Monocytes % 10.5 %; Neutrophils # 6.52 10^3/uL (1.8-7.7); Nucleated Red Blood Cells % 0 %; Platelet Count 175 10^3/cmm (157-399); Red Blood Count 3.59 10^6/uL (3.85-5.65); Red Cell Distribution Width 12.1 % (12.1-15.1); White Blood Count 8.58 10^3/uL (3.29-11.43)
[2024-07-12 16:04] LABS: Alanine Aminotransferase 17 U/L (0-33); Albumin Level 3.9 g/dL (3.5-5.2); Alkaline Phosphatase 63 U/L (35-105); Anion Gap 19.6 (5-19); Aspartate Amino Transferase 17 U/L (0-32); Blood Urea Nitrogen 34 mg/dL (8-23); Calcium 8.9 mg/dL (8.5-10.5); Carbon Dioxide 25 mmol/L (22-29); Chloride 94 mmol/L (98-107); Creatinine Clr Calc Pharmacy 26.5268; Globulin 2.8 g/dL (1.3-4.6); Glucose 218 mg/dL (65-115); NT Pro B Type Natriuretic Pept 526 pg/mL (0-450); Osmolality Calculated 292 mOsm/kg (285-295); Potassium 4.6 mmol/L (3.5-5.1); Sodium 134 mmol/L (136-145); Total Protein 6.7 g/dL (6.6-8.7)
[2024-07-12 16:06] VITALS: RESP 16
[2024-07-12] MEDS: ondansetron 2 mg/ML SDV 2 mL 4 MG IVP (16:06)
[2024-07-12] MEDS: morphine 4 mg/mL SDV 1 mL IVP (16:06)
[2024-07-12 16:07] VITALS: BP 169/95; PULSE 91; RESP 16; O2SAT 96
[2024-07-12 16:42] VITALS: BP 149/48; O2SAT 92
[2024-07-12 17:34] VITALS: BP 149/62; PULSE 94; RESP 16; O2SAT 92
== END 2024-07-12 17:35 | disposition home or self-care (01) ==
PROVIDERS: Emergency Provider Emergency Medicine; PCP Nurse Practitioner
DX: M71.21 Synovial cyst of popliteal space [Baker], right knee (principal); M79.605 Pain in left leg; Z79.02 Long term (current) use of antithrombotics/antiplatelets; I25.10 Atherosclerotic heart disease of native coronary artery without angina pectoris; E78.5 Hyperlipidemia, unspecified; E11.22 Type 2 diabetes mellitus with diabetic chronic kidney disease; I12.9 Hypertensive chronic kidney disease with stage 1 through stage 4 chronic kidney disease, or unspecified chronic kidney disease; N18.9 Chronic kidney disease, unspecified
CPT/HCPCS: 70450; 73562; 80053; 83880; 85025; 96374; 96375; 99285; J2270; J2405

== ENCOUNTER 2024-07-16 07:59 | Outpatient (CLI) | payer MEDICARE, SELFPAY ==
--- NOTE | 2024-07-16 08:15 | USCV_ITS ---
StrattonLorie thompsongy Age: 79 Gender: F : 1945 Exam Date: 07/16/2024 08:09 Ordering Phys: Tito Rice MD Technologist: [employer] Exam Location: [facility] [place] Indication: TIA Risk Factors: Previous Vascular Surgery: Right Brachial BP: / Left Brachial BP: / Right Left Velocity (cm/s) Spectral Plaque Velocity (cm/s) Spectral Plaque Syst/Diast Broadening Syst/Diast Broadening 75.40/ 13.90 Prox CCA 83.70 / 17.10 74.60/ 13.40 Mid CCA 64.20 / 12.70 70.90/ 9.70 Distal CCA 74.60 / 12.70 133.90/23.80 Prox ICA 70.00 / 15.20 98.70/ 24.00 Mid ICA 103.10/ 27.80 63.30/ 14.70 Distal ICA 55.90 / 12.30 161.00 ECA 144.00 1.90 ICA/CCA 0.90 Antegrade Vertebral Antegrade 37.10/ 9.60 cm/s 46.20/ 13.00 cm/s Tri Subclavian Tri 65.30 189.3 0 CONCLUSIONS Right ICA stenosis 50-69% at the lower end of the range. Moderate atheromatous plaque right carotid bulb/ICA. Left ICA stenosis <50%. Mild atheromatous plaque left carotid bulb/ICA. Normal antegrade Doppler flow noted in the right vertebral artery. Normal antegrade Doppler flow noted in the left vertebral artery. . Ralph Vasquez MD (Electronically Signed) Final Date: 16 July 2024 08:50 S
== END 2024-07-16 08:00 | disposition home or self-care (01) ==
LOC: RAD 08:01
PROVIDERS: PCP Nurse Practitioner; Visit Provider Psychiatry & Neurology Neurology
DX: I65.23 Occlusion and stenosis of bilateral carotid arteries (principal)
CPT/HCPCS: 93880

== ENCOUNTER → 2024-07-23 08:36 | Outpatient (BNVA) | payer MEDICARE, SELFPAY | PROVIDERS: PCP Nurse Practitioner; Visit Provider Nurse Practitioner | DX: E11.40 Type 2 diabetes mellitus with diabetic neuropathy, unspecified (principal); M10.9 Gout, unspecified; E55.9 Vitamin D deficiency, unspecified | CPT/HCPCS: 80053; 82306; 83036; 84443; 84550 ==

== ENCOUNTER 2024-07-28 07:00 | Outpatient (CLI) | payer MEDICARE, SELFPAY ==
--- NOTE | 2024-07-28 07:00 | USCV_ITS ---
Neisha Stratton Age: 79 Gender: F : 1945 Exam Date: 07/28/2024 07:19 Ordering Phys: Sunitha Whitley NP Technologist: [place] [facility] [place]: chf BP: 126 / 70 HR: 63 Rhythm: Sinus Technical Quality: Adequate MEASUREMENTS (Male / Female) Normal Values 2D ECHO LV Diastolic Diameter PLAX 4.9 cm 4.2 - 5.9 / 3.9 - 5.3 cm IVS Diastolic Thickness 0.9 cm 0.6 - 1.0 / 0.6 - 0.9 cm IVS Systolic Thickness 1.6 cm LVPW Diastolic Thickness 0.9 cm 0.6 - 1.0 / 0.6 - 0.9 cm LVPW Systolic Thickness 1.6 cm LVOT Diameter 2.0 cm LV Ejection Fraction 2D Teich 70.4 % LV Ejection Fraction MOD 4C 67.2 % LV Ejection Fraction MOD 2C 64.9 % LV Ejection Fraction 2C AL 64.3 % LA Diameter 3.3 cm RA Systolic Volume 4C AL 25.0 ml RA Systolic Volume 4C MOD 23.7 ml LA Sys Volume AL 37.5 cm cubed LA Sys Volume Index AL 19.8 cm cubed/m squared Aorta at Sinotubular Diameter 2.6 cm IVC Diameter 1.8 cm M-MODE LA Ao Ratio MM 1.2 AV Cusp Separation MM 1.3 cm DOPPLER AV Peak Velocity 170.0 cm/s LVOT Peak Velocity 108.0 cm/s AV Area Cont Eq vti 2.1 cm squared AV Area Cont Eq pk 2.1 cm squared MV Peak Velocity 103.0 cm/s MV Area PHT 2.5 cm squared Mitral E to A Ratio 0.8 TR Peak Velocity 170.0 cm/s TR Peak Gradient 11.6 mmHg TV Peak E Velocity 173.0 cm/s PV Peak Velocity 101.0 cm/s FINDINGS Left Ventricle Normal left ventricular size, systolic function and wall thickness, with no regional wall motion abnormalities.left ventricular ejection fraction is estimated at 60 %. Grade I/IV diastolic dysfunction (abnormal relaxation filling pattern), normal to mildly elevated filling pressures. Right Ventricle The right ventricle is normal in size and function. Right Atrium The right atrium is normal in size. Left Atrium The left atrium is normal in size. Mitral Valve Structurally normal mitral valve without significant stenosis or prolapse. There is no mitral regurgitation. Aortic Valve Moderate aortic valve calcification. No aortic valve stenosis. Trace aortic valve regurgitation. Tricuspid Valve Structurally normal tricuspid valve without significant stenosis or regurgitation. Pulmonary artery systolic pressure is normal. Pulmonic Valve Structurally normal pulmonic valve without significant stenosis. There is no pulmonic regurgitation. Pericardium Normal pericardium without effusion. Aorta Normal ascending aorta dimension. IVC The inferior vena cava appears normal. CONCLUSIONS Normal left ventricular size, systolic function and wall thickness, with no regional wall motion abnormalities.left ventricular ejection fraction is estimated at 60 %. Grade I/IV diastolic dysfunction (abnormal relaxation filling pattern), normal to mildly elevated filling pressures. Moderate aortic valve calcification. No aortic valve stenosis. Trace aortic valve regurgitation. There is no pericardial effusion. Right atrial pressure is around 5 mm of mercury. Viraj Mcdaniel MD (Electronically Signed) Final Date: 29 July 2024 01:25 S
== END 2024-07-28 07:01 | disposition home or self-care (01) ==
PROVIDERS: PCP Nurse Practitioner; Visit Provider Nurse Practitioner Family
DX: I25.118 Atherosclerotic heart disease of native coronary artery with other forms of angina pectoris (principal); I50.30 Unspecified diastolic (congestive) heart failure; R93.1 Abnormal findings on diagnostic imaging of heart and coronary circulation; I35.8 Other nonrheumatic aortic valve disorders
CPT/HCPCS: 93306

== ENCOUNTER → 2024-08-11 08:53 | Outpatient (BNVA) | payer MEDICARE, SELFPAY | PROVIDERS: PCP Nurse Practitioner; Visit Provider Specialist | DX: M17.11 Unilateral primary osteoarthritis, right knee (principal) | CPT/HCPCS: 73560; 73565; 99204 ==

== ENCOUNTER 2024-08-19 09:02 | Outpatient (CLI) | payer MEDICARE, SELFPAY ==
--- NOTE | 2024-08-19 09:45 | MR_ITS ---
WS: [id number] MRA HEAD TECHNIQUE: Axial 3-D TOF images obtained with axial images and axial, sagittal, and coronal 2-D reformatted images. CLINICAL INFORMATION: I63.9 - Cerebral infarction, unspecified FINDINGS: Distal vertebral arteries are patent. Basilar artery is patent. Normal vascularity to the PEDIGREE TRACER territory bilaterally. Patent LEFT posterior communicating artery. Normal vascularity to the PEDIGREE TRACER territory bilaterally. Both ICAs are patent at the skull base. Mild stenosis of the RIGHT cavernous segment and supraclinoid ICA which remains patent. Normal vascularity to the CHAIM and MCA territories bilaterally. No evidence of proximal flow-limiting stenosis. MR/MR angio head wo con [id number] IMPRESSION: 1. No evidence of proximal flow-limiting stenosis. 2. Patent LEFT posterior communicating artery. 3. Mild stenosis RIGHT cavernous and supraclinoid ICA which remain patent.
== END 2024-08-19 09:03 | disposition home or self-care (01) ==
LOC: RAD 09:02
PROVIDERS: PCP Nurse Practitioner; Visit Provider Psychiatry & Neurology Neurology
DX: I63.9 Cerebral infarction, unspecified (principal); I65.21 Occlusion and stenosis of right carotid artery
CPT/HCPCS: 70544

== ENCOUNTER → 2024-10-07 10:04 | Outpatient (BNVA) | payer MEDICARE, MEDICAID, SELFPAY | PROVIDERS: PCP Nurse Practitioner; Visit Provider Nurse Practitioner | DX: E11.40 Type 2 diabetes mellitus with diabetic neuropathy, unspecified (principal) | CPT/HCPCS: 80053; 80061; 82607; 83036 ==

== ENCOUNTER → 2024-11-03 12:27 | Outpatient (BNVA) | payer MEDICARE, MEDICAID, SELFPAY | PROVIDERS: PCP Nurse Practitioner; Visit Provider Psychiatry & Neurology Neurology | DX: I63.9 Cerebral infarction, unspecified (principal); G45.9 Transient cerebral ischemic attack, unspecified; M25.561 Pain in right knee | CPT/HCPCS: 99212 ==

== ENCOUNTER → 2025-01-06 09:05 | Outpatient (BNVA) | payer MEDICARE, MEDICAID, SELFPAY | PROVIDERS: PCP Nurse Practitioner; Visit Provider Nurse Practitioner Family | DX: I13.0 Hypertensive heart and chronic kidney disease with heart failure and stage 1 through stage 4 chronic kidney disease, or unspecified chronic kidney disease (principal); N18.9 Chronic kidney disease, unspecified; I50.30 Unspecified diastolic (congestive) heart failure; I48.91 Unspecified atrial fibrillation; Z79.01 Long term (current) use of anticoagulants; I25.10 Atherosclerotic heart disease of native coronary artery without angina pectoris; E78.5 Hyperlipidemia, unspecified; Z95.5 Presence of coronary angioplasty implant and graft; Z86.73 Personal history of transient ischemic attack (TIA), and cerebral infarction without residual deficits | CPT/HCPCS: 99213 ==

== ENCOUNTER → 2025-02-03 09:50 | Outpatient (BNVA) | payer MEDICARE, MEDICAID, SELFPAY | PROVIDERS: PCP Nurse Practitioner; Visit Provider Nurse Practitioner | DX: E11.40 Type 2 diabetes mellitus with diabetic neuropathy, unspecified (principal); E11.9 Type 2 diabetes mellitus without complications | CPT/HCPCS: 80053; 81000; 83036 ==

== ENCOUNTER 2025-02-06 13:42 | Outpatient (CLI) | payer MEDICARE, SELFPAY ==
--- NOTE | 2025-02-06 13:53 | XR_ITS ---
WS: [id number] XR lumbar spine 2-3V* [id number] REASON FOR EXAM: M25.50 - Pain in unspecified joint FINDINGS: Moderate rotatory levoscoliosis. Mild straightening of the normal lordosis. Mild biconcave compression deformities of L3 and L4 which appear chronic. Significant narrowing of the L2-L3 disc space with significant endplate sclerosis and osteophytosis. Severe narrowing of the L3-L4 disc space with significant endplate sclerosis and osteophytosis. No spondylolysis. No significant spondylolisthesis. XR/XR lumbar spine 2-3V* [id number] IMPRESSION: Old compression deformities and degenerative spondylosis as above.
--- NOTE | 2025-02-06 13:53 | XR_ITS ---
WS: [id number] XR hip BI m 5V wo/w pel* [id number] REASON FOR EXAM: M25.50 - Pain in unspecified joint FINDINGS: RIGHT HIP: No fracture or focal bone lesion. Minimal narrowing of the joint space with mild subchondral sclerosis and osteophytosis of the acetabulum. Minimal osteophytosis of the femoral head. 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 LEFT HIP: No fracture or focal bone lesion. Minimal narrowing of the joint space with mild subchondral sclerosis and osteop hytosis of the acetabulum. Minimal osteophytosis of the femoral head.
== END 2025-02-06 13:43 | disposition home or self-care (01) ==
PROVIDERS: PCP Nurse Practitioner; Visit Provider Nurse Practitioner
DX: M47.896 Other spondylosis, lumbar region (principal); M25.78 Osteophyte, vertebrae; M25.551 Pain in right hip; M25.552 Pain in left hip
CPT/HCPCS: 72100; 73523

== ENCOUNTER → 2025-05-05 08:23 | Outpatient (BNVA) | payer MEDICARE, MEDICAID, SELFPAY | PROVIDERS: PCP Nurse Practitioner; Visit Provider Nurse Practitioner | DX: E11.65 Type 2 diabetes mellitus with hyperglycemia (principal); E78.5 Hyperlipidemia, unspecified; I10 Essential (primary) hypertension | CPT/HCPCS: 80053; 80061; 83036; 85025 ==

== ENCOUNTER → 2025-05-08 11:47 | Outpatient (BNVA) | payer MEDICARE, SELFPAY | PROVIDERS: PCP Nurse Practitioner; Visit Provider Internal Medicine Cardiovascular Disease | DX: R07.9 Chest pain, unspecified (principal); R06.02 Shortness of breath; R00.1 Bradycardia, unspecified | CPT/HCPCS: 36415; 80048; 83880; 93005; 99214 ==

== ENCOUNTER → 2025-05-26 08:57 | Outpatient (BNVA) | payer MEDICARE, SELFPAY | PROVIDERS: PCP Nurse Practitioner; Visit Provider Dermatology | DX: I87.2 Venous insufficiency (chronic) (peripheral) (principal); L57.8 Other skin changes due to chronic exposure to nonionizing radiation; D48.5 Neoplasm of uncertain behavior of skin; L57.0 Actinic keratosis | CPT/HCPCS: 11102; 17000; 99203 ==

== ENCOUNTER → 2025-06-11 10:13 | Outpatient (BNVA) | payer MEDICARE, SELFPAY | PROVIDERS: PCP Nurse Practitioner; Visit Provider Nurse Practitioner | DX: I10 Essential (primary) hypertension (principal) | CPT/HCPCS: 80048; 81000; 85025 ==